=== PATIENT | male | born 1935 | race Caucasian/White ===

== ENCOUNTER 2018-02-18 09:29 | Observation (INO) ==
[2018-02-18 10:17] LABS: Basophils # 0.1 K/mcL (0.0-0.2); Basophils % 0.7 %; Eosinophils # 0.3 K/mcL (0.0-0.6); Eosinophils % 3.7 %; Hematocrit 37.4 % (37.5-50.1); Hemoglobin 12.7 g/dL (12.9-16.9); Immature Granulocytes % 0.6 % (0-4); Lymphocytes # 0.8 K/mcL (0.6-4.6); Lymphocytes % 12.4 %; Mean Corpuscular Hemoglobin 31.1 pg (28.0-33.3); Mean Corpuscular Volume 91.4 fL (83.0-100.0); Mean Platelet Volume 9.8 fL (9.4-12.4); Monocytes # 0.6 K/mcL (0.0-1.3); Monocytes % 8.3 %; Platelet Count 142 K/mcL (140-400); Red Blood Count 4.09 M/mcL (4.19-5.50); Red Cell Distribution Width 12.6 % (11.5-14.5); Segmented Neutrophils % 74.3 %
[2018-02-18 10:25] LABS: Calcium 9.7 mg/dL (8.6-10.3); Carbon Dioxide 29 mEq/L (23-29); Chloride 96 mEq/L (98-107); Glucose 111 mg/dL (70-105); Potassium 4.7 mEq/L (3.5-5.1); Sodium 131 mEq/L (136-145); Troponin I < 0.03 ng/mL (< 0.04); eGFR For Non-African Americans 49 (> 60)
--- NOTE | 2018-02-18 10:38 | Emergency Department Note ---
Addendum entered and electronically signed by Maureen Serna DO 02/18/18 11 :29: I have re-performed and reviewed the history documented by the medical student, and I confirm its accuracy except as noted below Original Note: Disposition Clinical Impression: HA (acute kidney injury), Pre-syncope Disposition: Admitted As Inpatient Condition: Good General Adult HPI - General Chief complaint: ED Dizziness Stated complaint: Lightheaded Time Seen by Provider: 02/18/18 09:36 Source: patient Mode of arrival: ambulatory Limitations: no limitations Nursing Notes Reviewed: Yes Vital Signs Reviewed: Yes - History of Present Illness HPI Narrative: 83-year-old male with significant past medical history of hypertension, hyperlipidemia and coronary artery disease presenting to the emergency department for presyncope episode. According to the patient he got up today and was doing his daily activities when he started to feel very weak like he was going to pass out. He denies any chest pain or shortness of breath during this episode. He states he sat down in his chair and sat there for a few minutes and started to feel better. Patient had an episode similar to this a few weeks ago. He was seen here and evaluated and discharged home. At that time patient did have a syncopal episode and fell. Patient states he has seen his primary care doctor since his last syncopal episode name Wooten lab work but otherwise no other intervention. At this time patient states he feels fine. Pain Scale: 0 - Related Data Home Medications Medication Instructions Recorded Confirmed Aspirin Enteric Coated [Aspirin EC] 81 mg PO DAILY 02/18/15 02/18/15 Atenolol [Tenormin] 100 mg PO DAILY 02/18/15 02/18/15 Calcium Carbonate/Vitamin D3 1 each PO DAILY 02/18/15 02/18/15 [Calcium 600 + D Tablet] Colestipol HCl [Colestid] 5 gm PO DAILY 02/18/15 02/18/15 Furosemide [Lasix] 40 mg PO DAILY PRN 02/18/15 02/18/15 Lisinopril [Zestril] 2.5 mg PO DAILY 02/18/15 02/18/15 Allergies Allergy/AdvReac Type Severity Reaction Status Date / Time Penicillins Allergy Mild Hives Verified 02/18/15 10:43 All systems ED: reviewed and negative except as stated. Constitutional: Denies: fever, chills Eyes: Reports: as per HPI ENT ED: Reports: as per HPI Cardiovascular: Denies: chest pain, palpitations Respiratory: Reports: as per HPI Gastrointestinal: Denies: abdominal pain, nausea, vomiting Genitourinary: Reports: as per HPI Musculoskeletal: Reports: as per HPI Integumentary: Reports: as per HPI Neurological: Reports: weakness. Denies: headache, numbness, paresthesias Psychiatric: Reports: as per HPI Endocrine: Reports: as per HPI Hematological/Lymphatic: Reports: as per HPI Allergic/Immunologic: Reports: as per HPI Past Medical History - Past Medical History Attestation: Yes The following information was validated with the patient. Medical history: Reports: cancer, coronary artery disease, hyperlipidemia, hypertension, myocardial infarction, other Surgical history: Reports: cholecystectomy, coronary bypass (CABG) Psychiatric history: Reports: no psych history - Social History Smoking Status: Never smoker Smokeless Tobacco Status: No Alcohol use: Reports: none Drug use: Reports: none Physical Exam - General Limitations: no limitations General appearance: alert, in no apparent distress - Head Head exam: atraumatic, normocephalic, normal inspection - Eye Eye exam: Present: EOMI, other (Redness to right eye which is baseline for the patient). Absent: scleral icterus, conjunctival injection - ENT ENT exam: normal exam, mucous membranes moist - Neck Neck exam: Present: normal inspection, full ROM. Absent: tenderness, meningismus - Chest Chest inspection: Present: normal inspection, symmetric chest wall rise. Absent : tenderness, rash - Respiratory Respiratory exam: Present: normal lung sounds bilaterally. Absent: respiratory distress, wheezes - Cardiovascular Cardiovascular exam: Present: regular rate, normal rhythm, normal heart sounds - Abdominal Exam Abdominal exam: Present: soft, Non-Tender. Absent: distention, guarding, rebound - Extremities Exam Extremities exam: Present: normal inspection, full ROM - Neurological Exam Neurological exam: Present: alert, oriented X3 - Psychiatric Psychiatric exam: Present: normal affect, normal mood - Skin Skin exam: Present: warm, intact Course Course Narrative: 83-year-old male presenting for presyncopal episode. Patient was seen for similar episode approximately 2-3 weeks ago. At this time patient is alert and oriented 3 in the room with stable vital signs. Physical exam benign. We will obtain basic laboratory analysis including CBC, BMP, troponin, chest x-ray and EKG. Disposition most likely admission due to patient's age and repeat presyncopal episodes. He agrees with this plan. - Reevaluation(s) Reevaluation #1: Patient's laboratory analysis shows mild acute kidney injury. We will provide him with a 500 mL fluid bolus. Patient also has hyponatremia but otherwise baseline labs. Chest x-ray within normal limits. EKG unchanged from previous. Patient asymptomatic throughout his stay. We will plan to admit him for further cardiac evaluation. Patient agrees with this plan. He is alert and oriented times three with stable vital signs. I spoke with the hospitalist collision estimator Dr. Escobedo who agrees to accept the patient at this time. Vital Signs Temperature 97.8 F 02/18/18 09:33 Pulse Rate 70 02/18/18 09:33 Respiratory Rate 16 02/18/18 09:33 Blood Pressure 109/74 02/18/18 09:33 O2 Sat by Pulse Oximetry 99 02/18/18 09:33 Temperature 98.2 F 02/18/18 13:10 Pulse Rate 80 02/18/18 13:10 Respiratory Rate 16 02/18/18 13:10 Blood Pressure 177/87 02/18/18 13:10 O2 Sat by Pulse Oximetry 97 02/18/18 14:06 Oxygen Delivery Oxygen Delivery Room Air Medical Decision Making - Lab Data Result diagrams: 02/18/18 09:54 02/18/18 09:54 Lab Results 02/18/18 02/18/18 Range/Units 09:54 09:54 WBC 6.8 (4.3-11.1) K/mcL RBC 4.09 L (4.19-5.50) M/mcL Hgb 12.7 L (12.9-16.9) g/dL Hct 37.4 L (37.5-50.1) % MCV 91.4 (83.0-100.0) fL MCH 31.1 (28.0-33.3) pg MCHC 34.0 (31.6-35.5) g/dL RDW 12.6 (11.5-14.5) % Plt Count 142 (140-400) K/mcL MPV 9.8 (9.4-12.4) fL Immature Gran % 0.6 (0-4) % Seg Neutrophils % 74.3 % Lymphocytes % 12.4 % Monocytes % 8.3 % Eosinophils % 3.7 % Basophils % 0.7 % Neutrophils # 5.0 (1.6-8.9) K/mcL Lymphocytes # 0.8 (0.6-4.6) K/mcL Monocytes # 0.6 (0.0-1.3) K/mcL Eosinophils # 0.3 (0.0-0.6) K/mcL Basophils # 0.1 (0.0-0.2) K/mcL Sodium 131 L (136-145) mEq/L Potassium 4.7 (3.5-5.1) mEq/L Chloride 96 L (98-107) mEq/L Carbon Dioxide 29 (23-29) mEq/L BUN 19 (8-23) mg/dL Creatinine 1.38 H (0.70-1.30) mg/dL Est GFR ( Amer) 60 (> 60) Est GFR (Non-Af Amer) 49 L (> 60) BUN/Creatinine Ratio 14 (6-26) Glucose 111 H (70-105) mg/dL Calculated Osmolality 275 L (280-300) Calcium 9.7 (8.6-10.3) mg/dL Magnesium 1.7 (1.6-2.6) mg/dL Troponin I < 0.03 (< 0.04) ng/mL - EKG Data EKG #1 EKG attestation: Yes I reviewed and interpreted this EKG. EKG results narrative: Sinus rhythm. 69 beats for minute. CO interval 150, QRS 104, QTC 420. No sign of acute ST segment elevation or ischemia. Compared to previous EKG completed on 01/25/2018 no significant changes noted.
--- NOTE | 2018-02-18 10:50 | Emergency Department Note ---
Disposition Clinical Impression: HA (acute kidney injury), Pre-syncope Disposition: Admitted As Inpatient Condition: Good General Adult HPI - General Chief complaint: ED Dizziness Stated complaint: Lightheaded Time Seen by Provider: 02/18/18 09:36 Source: patient Limitations: no limitations - History of Present Illness Pain Scale: 0 - Related Data Home Medications Medication Instructions Recorded Confirmed Aspirin Enteric Coated [Aspirin EC] 81 mg PO DAILY 02/18/15 02/18/15 Atenolol [Tenormin] 100 mg PO DAILY 02/18/15 02/18/15 Calcium Carbonate/Vitamin D3 1 each PO DAILY 02/18/15 02/18/15 [Calcium 600 + D Tablet] Colestipol HCl [Colestid] 5 gm PO DAILY 02/18/15 02/18/15 Furosemide [Lasix] 40 mg PO DAILY PRN 02/18/15 02/18/15 Lisinopril [Zestril] 2.5 mg PO DAILY 02/18/15 02/18/15 Allergies Allergy/AdvReac Type Severity Reaction Status Date / Time Penicillins Allergy Mild Hives Verified 02/18/15 10:43 Past Medical History - Past Medical History Medical history: Reports: cancer, coronary artery disease, hyperlipidemia, hypertension, myocardial infarction, other Surgical history: Reports: cholecystectomy, coronary bypass (CABG) Psychiatric history: Reports: no psych history - Social History Smoking Status: Never smoker Smokeless Tobacco Status: No Alcohol use: Reports: none Drug use: Reports: none Physical Exam - General Limitations: no limitations General appearance: alert Course Vital Signs Temperature 97.8 F 02/18/18 09:33 Pulse Rate 70 02/18/18 09:33 Respiratory Rate 16 02/18/18 09:33 Blood Pressure 109/74 02/18/18 09:33 O2 Sat by Pulse Oximetry 99 02/18/18 09:33 Temperature 98.2 F 02/18/18 13:10 Pulse Rate 80 02/18/18 13:10 Respiratory Rate 16 02/18/18 13:10 Blood Pressure 177/87 02/18/18 13:10 O2 Sat by Pulse Oximetry 97 02/18/18 14:06 Oxygen Delivery Oxygen Delivery Room Air Medical Decision Making - Lab Data Result diagrams: 02/18/18 09:54 02/18/18 09:54 Lab Results 09/09/18 09/09/18 Range/Units 09:54 09:54 WBC 6.8 (4.3-11.1) K/mcL RBC 4.09 L (4.19-5.50) M/mcL Hgb 12.7 L (12.9-16.9) g/dL Hct 37.4 L (37.5-50.1) % MCV 91.4 (83.0-100.0) fL MCH 31.1 (28.0-33.3) pg MCHC 34.0 (31.6-35.5) g/dL RDW 12.6 (11.5-14.5) % Plt Count 142 (140-400) K/mcL MPV 9.8 (9.4-12.4) fL Immature Gran % 0.6 (0-4) % Seg Neutrophils % 74.3 % Lymphocytes % 12.4 % Monocytes % 8.3 % Eosinophils % 3.7 % Basophils % 0.7 % Neutrophils # 5.0 (1.6-8.9) K/mcL Lymphocytes # 0.8 (0.6-4.6) K/mcL Monocytes # 0.6 (0.0-1.3) K/mcL Eosinophils # 0.3 (0.0-0.6) K/mcL Basophils # 0.1 (0.0-0.2) K/mcL Sodium 131 L (136-145) mEq/L Potassium 4.7 (3.5-5.1) mEq/L Chloride 96 L (98-107) mEq/L Carbon Dioxide 29 (23-29) mEq/L BUN 19 (8-23) mg/dL Creatinine 1.38 H (0.70-1.30) mg/dL Est GFR ( Amer) 60 (> 60) Est GFR (Non-Af Amer) 49 L (> 60) BUN/Creatinine Ratio 14 (6-26) Glucose 111 H (70-105) mg/dL Calculated Osmolality 275 L (280-300) Calcium 9.7 (8.6-10.3) mg/dL Magnesium 1.7 (1.6-2.6) mg/dL Troponin I < 0.03 (< 0.04) ng/mL Attestation Statement - Attestation Attestation: I examined this patient and my medical decision-making was reviewed with the Resident Physician. I agree with the documented findings, disposition and treatment plan as described except to the extent set forth below. Patient to the ED with a chief complaint of dizziness. Patient had an episode today where he felt lightheaded. He leaned over and felt like he was going to pass out. He did not lose consciousness. His dizziness is resolved. Patient had a similar episode a couple of weeks ago and was seen here. He did not fall at that time. No chest pain or trouble breathing. He does state he feels like he is been weaker than normal. Cardiac history including a two-way bypass. He is in no distress awake alert and oriented on examination. Moving all extremities. Plan. Cardiac workup. Likely admission. Labs and x-ray reviewed. Slight elevation in his creatinine from baseline. IV hydration and admission.
--- NOTE | 2018-02-18 10:53 | Emergency Department Note ---
Disposition Clinical Impression: HA (acute kidney injury), Pre-syncope Disposition: Admitted As Inpatient Condition: Good Dizziness HPI - General Chief Complaint: ED Dizziness Stated Complaint: Lightheaded Time Seen by Provider: 02/18/18 09:36 Source: patient Limitations: no limitations Nursing Notes Reviewed: Yes Vital Signs Reviewed: Yes - History of Present Illness HPI Narrative: Rashawn James is an 83-yo male patient with PMHx of HTN and VA with double bypass approx. 15 years ago. He is complaining of lightheadedness that occurred an hour after he got up this morning, at around 7:30. He describes this as sudden in onset, and states that he felt like he was going to pass out but sat in a chair and bent over, which improved his symptoms. He is complaining of no other symptoms, including chest pain, palpitations, shortness of breath, fever, chills, numbness, tingling, vision or hearing changes, focal weakness or sensory loss. He notes that he did have a similar episode a few weeks ago when he did syncopize and fall, and was evaluated with negative workup at the time, including head CT. He states that he has had no recent medication changes, and has been taking his meds as prescribed. He denies any history of CHF, smoking, alcohol, or drug use. He has not acute complaints at this time. Pt Subjective Complaint: lightheadedness Onset (ago): hour(s) (2-3) Timing: sudden onset, now resolved Description: lightheadedness, near-syncope History of similar episodes: Yes History of trauma: Yes Severity: severe Improves with: other (position) Worsens with: position Associated symptoms: Reports: denies other symptoms - Related Data Home Medications Medication Instructions Recorded Confirmed Aspirin Enteric Coated [Aspirin EC] 81 mg PO DAILY 02/18/15 02/18/15 Atenolol [Tenormin] 100 mg PO DAILY 02/18/15 02/18/15 Calcium Carbonate/Vitamin D3 1 each PO DAILY 02/18/15 02/18/15 [Calcium 600 + D Tablet] Colestipol HCl [Colestid] 5 gm PO DAILY 02/18/15 02/18/15 Furosemide [Lasix] 40 mg PO DAILY PRN 02/18/15 02/18/15 Lisinopril [Zestril] 2.5 mg PO DAILY 02/18/15 02/18/15 Allergies Allergy/AdvReac Type Severity Reaction Status Date / Time Penicillins Allergy Mild Hives Verified 02/18/15 10:43 Constitutional: Reports: weakness. Denies: fever, chills Eyes: Denies: vision change ENT ED: Denies: hearing loss, dysphagia Cardiovascular: Denies: chest pain, palpitations, dyspnea on exertion, edema, syncope Respiratory: Denies: cough, dyspnea, wheezes, hemoptysis, stridor Gastrointestinal: Denies: abdominal pain, nausea, vomiting, diarrhea, constipation, hematemesis, melena, hematochezia Genitourinary: Denies: urgency, dysuria, frequency, hematuria Musculoskeletal: Reports: back pain Neurological: Reports: weakness. Denies: headache, numbness, paresthesias, confusion, abnormal gait, vertigo Past Medical History - Past Medical History Medical history: Reports: cancer, coronary artery disease, hyperlipidemia, hypertension, myocardial infarction, other Surgical history: Reports: cholecystectomy, coronary bypass (CABG) Psychiatric history: Reports: no psych history - Social History Smoking Status: Never smoker Smokeless Tobacco Status: No Alcohol use: Reports: none Drug use: Reports: none Physical Exam On exam, patient is alert and oriented x3 and in no acute distress. His heart rate is normal but rhythm irregularly irregular. Lungs are CTAB. Mucous membranes are moist, and patient is neurologically intact. Lower extremities have compression socks with +2/4 pitting edema which according to the patient is his baseline. - General Limitations: no limitations General appearance: alert, in no apparent distress - Head Head exam: atraumatic, normocephalic - Eye Eye exam: Present: normal appearance, PERRL, EOMI - ENT ENT exam: normal exam, normal oropharynx, mucous membranes moist - Neck Neck exam: Present: normal inspection - Chest Chest inspection: Present: normal inspection - Respiratory Respiratory exam: Present: normal lung sounds bilaterally. Absent: respiratory distress, wheezes - Cardiovascular Cardiovascular exam: Present: regular rate, irregular rhythm, normal heart sounds, +S1, +S2. Absent: normal rhythm, bradycardia, tachycardia, systolic murmur, diastolic murmur, rubs, gallop, +S3, +S4 - Abdominal Exam Abdominal exam: Present: soft, Non-Tender, normal bowel sounds. Absent: tenderness, distention, guarding, rebound, rigidity - Extremities Exam Extremities exam: Present: pedal edema - Neurological Exam Neurological exam: Present: alert, oriented X3, CN II-XII intact. Absent: motor sensory deficit - Psychiatric Psychiatric exam: Present: normal mood, flat affect - Skin Skin exam: Present: warm, dry, intact, pallor Course Vital Signs Temperature 97.8 F 02/18/18 09:33 Pulse Rate 70 02/18/18 09:33 Respiratory Rate 16 02/18/18 09:33 Blood Pressure 109/74 02/18/18 09:33 O2 Sat by Pulse Oximetry 99 02/18/18 09:33 Temperature 98.2 F 02/18/18 13:10 Pulse Rate 80 02/18/18 13:10 Respiratory Rate 16 02/18/18 13:10 Blood Pressure 177/87 02/18/18 13:10 O2 Sat by Pulse Oximetry 97 02/18/18 14:06 Oxygen Delivery Oxygen Delivery Room Air Dizziness - Lab Data Result diagrams: 02/18/18 09:54 02/18/18 09:54 Lab Results 02/18/18 02/18/18 Range/Units 09:54 09:54 WBC 6.8 (4.3-11.1) K/mcL RBC 4.09 L (4.19-5.50) M/mcL Hgb 12.7 L (12.9-16.9) g/dL Hct 37.4 L (37.5-50.1) % MCV 91.4 (83.0-100.0) fL MCH 31.1 (28.0-33.3) pg MCHC 34.0 (31.6-35.5) g/dL RDW 12.6 (11.5-14.5) % Plt Count 142 (140-400) K/mcL MPV 9.8 (9.4-12.4) fL Immature Gran % 0.6 (0-4) % Seg Neutrophils % 74.3 % Lymphocytes % 12.4 % Monocytes % 8.3 % Eosinophils % 3.7 % Basophils % 0.7 % Neutrophils # 5.0 (1.6-8.9) K/mcL Lymphocytes # 0.8 (0.6-4.6) K/mcL Monocytes # 0.6 (0.0-1.3) K/mcL Eosinophils # 0.3 (0.0-0.6) K/mcL Basophils # 0.1 (0.0-0.2) K/mcL Sodium 131 L (136-145) mEq/L Potassium 4.7 (3.5-5.1) mEq/L Chloride 96 L (98-107) mEq/L Carbon Dioxide 29 (23-29) mEq/L BUN 19 (8-23) mg/dL Creatinine 1.38 H (0.70-1.30) mg/dL Est GFR ( Amer) 60 (> 60) Est GFR (Non-Af Amer) 49 L (> 60) BUN/Creatinine Ratio 14 (6-26) Glucose 111 H (70-105) mg/dL Calculated Osmolality 275 L (280-300) Calcium 9.7 (8.6-10.3) mg/dL Magnesium 1.7 (1.6-2.6) mg/dL Troponin I < 0.03 (< 0.04) ng/mL
[2018-02-18] MEDS ORDERED: 0.9 % Sodium Chloride 500 ML IVC ONE (11:16)
[2018-02-18 11:54] LABS: BUN/Creatinine Ratio 14 (6-26); Blood Urea Nitrogen 19 mg/dL (8-23); Osmolality,Calculated 275 (280-300)
[2018-02-18] MEDS ORDERED: Naloxone 0.4 MG/ML INJ IVP PRN (12:33)
--- NOTE | 2018-02-18 12:33 | Internal Med History&Physical ---
Date of Encounter: 02/18/18 Time of Encounter: 12:33 Internal Medicine - H&P: HPI Chief complaint: Light-headedness Admitted From: Home Plans for Post Hospital Care: Home History of present illness: Mr. James is a 83 year old male with history of a syncopal event in mid January,. History of MT, CABG, CAD, hypertension, and diabetes. Reported to the ED with lightheadedness that began one hour after waking up this morning. Patient stated he put his head down between his legs which helped him from passing out. During his ER visit in January a head and face CT was found to be negative. Apparently the patient had ocular pressure and was referred to a medical technologist prn. EKG at that time was sinus rhythm. Troponin was negative in the ED. Denies any chest pain. Patient noted to be in bigeminy on telemetry, also heart rate irregular on auscultation. Patient denies history of atrial fibrillation. EKG in the ED showed normal sinus rhythm with a rate 84. We will get a second EKG to confirm the bigeminy. We will also get serum magnesium. Potassium is currently 4.7 and sodium is 131. Patient received a saline bolus in the ED and will continue at 75 mL/hr. CT of the head is pending. Left leg with swelling, as the patient states he has valvular issues in the leg. [place] on. The patient had a echo in 08/2017 which showed a LVEF of 55-60%. The carotid duplex showed some minimal plaque. Past Med Surg Social Fam HX - Past Medical History Medical history: cancer, coronary artery disease, hyperlipidemia, hypertension, myocardial infarction, other Additional medical history: colon cancer Psychiatric history: no psych history - Past Surgical History Surgical History: cholecystectomy, coronary bypass (CABG) Additional surgical history: colon CA, hernia repair, cornea transplant - Social History Smoking Status: Never smoker Smokeless Tobacco Status: No Alcohol use: none Drug use: none - Family History Father Hx Family Cardiac Disorders: Yes (CHF) Mother Hx Family Cardiac Disorders: Yes (MT) Internal Medicine - H&P: Meds Aspirin Enteric Coated [Aspirin EC] 81 mg PO DAILY 02/18/15 [History] Atenolol [Tenormin] 100 mg PO DAILY 02/18/15 [History] Calcium Carbonate/Vitamin D3 [Calcium 600 + D Tablet] 1 each PO DAILY 02/18/15 [ History] Colestipol HCl [Colestid] 5 gm PO DAILY 02/18/15 [History] Furosemide [Lasix] 40 mg PO DAILY PRN 02/18/15 [History] Lisinopril [Zestril] 2.5 mg PO DAILY 02/18/15 [History] 3 Allergy/AdvReac Type Severity Reaction Status Date / Time Penicillins Allergy Mild Hives Verified 02/18/15 10:43 All Systems PM: A 10-system review of systems was performed and is negative for pertinent findings except as documented above in the HPI. - Constitutional Constitutional: no chills, no fever(s), no night sweats - EENT Eyes: no blurry vision, no change in vision, no discharge, no loss of vision, no pain, no photophobia Ears: no ear discharge, no ear pain, no tinnitus Nose, mouth and throat: no dysphagia, no nasal discharge, no neck pain, no sore throat - Cardiovascular Cardiovascular ROS IM: edema ( ), irregular heart rhythm, lightheadedness, no chest pain, no diaphoresis, no dyspnea, no palpitations, no syncope - Respiratory Respiratory: no cough, no dyspnea, no wheezing, no excessive phlegm production - Gastrointestinal Gastrointestinal: no abdominal pain, no diarrhea, no hematemesis, no hematochezia, no melena, no nausea, no vomiting - Musculoskeletal Musculoskeletal ROS IM: no numbness, no tingling - Integumentary Integumentary IM: no rash, no unusual bruising - Neurological Neurological ROS: no confusion, no convulsions, no focal weakness, no numbness, no tingling, no tremor(s) - Hematologic/Lymphatic Hematologic/Lymphatic: no easy bruising - Constitutional Vitals: Temp Pulse Resp BP Pulse Ox 97.8 F 71 20 173/80 100 02/18/18 09:59 02/18/18 09:59 02/18/18 09:59 02/18/18 09:59 02/18/18 09:59 General appearance: Present: A&O X 3 Exam: See 10 pt. exam - Head Head exam: Present: atraumatic, normocephalic - Eye Eye exam: Present: PERRL, conjuntiva pink, sclera anicteric Pupils: Present: PERRL - Neck Neck exam general surgery: Present: supple, trachea midline. Absent: tenderness - Respiratory Respiratory exam: Present: CTAB. Absent: accessory muscle use, rales, rhonchi, wheezes - Cardiovascular Cardiovascular exam: Present: irregular rhythm (Bigeminy), +S1, +S2. Absent: diastolic murmur, gallop, rubs, systolic murmur - GI/Abdominal GI/Abdominal exam: Present: normal bowel sounds, soft, no peritoneal signs. Absent: distended, tenderness - Extremities Exam Extremities exam: Present: pedal edema (Left lower extremity with tenderness with ambulation), tenderness (left lower extremity), warm, radial pulses palpable and symmetrical. Absent: calf tenderness, cyanotic - Neurological Exam Neurological exam: Present: CN II-XII intact, oriented X3, no focal deficits, strengths equal and symetr throughout. Absent: pronater drift, facial droop, speech deficit - Skin Skin exam: Present: dry, intact Internal Med - H&P Results - Labs CBC & Chem 7: 02/18/18 09:54 02/18/18 09:54 - Assessment and plan (1) Diabetes Current Visit: Yes Status: Chronic Assessment and plan: Blood sugar is 111, controlled. Accu check AC/HS with mild sliding scale humalog coverage Monitor daily labs Qualifiers: Diabetes mellitus type: type 2 Diabetes mellitus intermediate designer insulin use: without intermediate designer use Diabetes mellitus complication status: with unspecified complications Qualified Code(s): E11.8 - Type 2 diabetes mellitus with unspecified complications (2) HTN (hypertension) Current Visit: Yes Status: Chronic Assessment and plan: Uncontrolled Goal is less than 140/80 Continue home anti-hypertensive medications-Lisinopril and tenormin. Qualifiers: Hypertension type: essential hypertension Qualified Code(s): I10 - Essential (primary) hypertension (3) CAD (coronary artery disease) Current Visit: Yes Status: Chronic Assessment and plan: History of MT with bypass, 15 years ago. 12 lead EKG Cardiac monitoring Monitor daily labs Troponin is negative on admission, no chest pain reported. Qualifiers: Coronary Disease-Associated Artery/Lesion type: bypass graft [place] vs. transplanted heart: unspecified whether [place] or transplanted heart Associated angina: with unspecified angina Qualified Code(s): I25.709 - Atherosclerosis of coronary artery bypass graft(s), unspecified, with unspecified angina pectoris (4) Myocardial infarction Current Visit: No Status: Chronic Assessment and plan: 15 years ago with CABG. Managed outpatient Cardiac monitoring Monitor labs Qualifiers: Myocardial infarction type: unspecified Involved coronary artery: unspecified coronary artery Qualified Code(s): I21.9 - Acute myocardial infarction, unspecified (5) HA (acute kidney injury) Current Visit: Yes Status: Acute Assessment and plan: Baseline is 1.31 HA likely related to dehydration Received IV bolus in ED 0.9% NS at 75 ml/hr Monitor daily labs Monitor I and O (6) Pre-syncope Current Visit: Yes Status: Acute Assessment and plan: The patient had a similar event in mid January. Ortho statics daily Cardiac monitoring Head CT is pending Monitor labs Up with assist Neuro checks q shift x 3 Echo Carotid duplex (7) Hyponatremia Current Visit: Yes Status: Acute Assessment and plan: Na is 131, likely relate dto dehyration. Received NS IV bolus in ED 0.9% NS at 75 ml/hr X 2 bags Recheck NA in am and as needed Monitor daily labs Monitor I and O - Time Spent With Patient Total time spent is greater than 50% in coordination of care (as documented) at patient's floor/unit and/or counseling patient: less than 15 minutes
[2018-02-18 13:14] LABS: Magnesium 1.7 mg/dL (1.6-2.6)
[2018-02-18] MEDS ORDERED: *HR* Dextrose 50 % in Water (Syg) 50 ML SYRINGE IVP PRN (13:46)
[2018-02-18] MEDS ORDERED: Furosemide 40 MG TABLET PO PRN (13:46)
[2018-02-18] MEDS ORDERED: Dextrose Gel 15 GM/37.5 ML TUBE PO PRN ×2 (13:46)
[2018-02-18] MEDS ORDERED: D5% in Water 1,000 ML IVC PRN (13:46)
[2018-02-18] MEDS: Insulin LISPRO 300 UNITS/3 ML VIAL SQ SCH (16:54)
[2018-02-18] MEDS: 0.9 % Sodium Chloride 1,000 ML IVC SCH (17:57)
[2018-02-19 06:37] LABS: Hematocrit 35.2 % (37.5-50.1); Mean Corpuscular HGB Conc 34.1 g/dL (31.6-35.5); Mean Corpuscular Hemoglobin 31.1 pg (28.0-33.3); Mean Corpuscular Volume 91.2 fL (83.0-100.0); Mean Platelet Volume 9.6 fL (9.4-12.4); Platelet Count 132 K/mcL (140-400); Red Blood Count 3.86 M/mcL (4.19-5.50); Red Cell Distribution Width 12.8 % (11.5-14.5)
[2018-02-19 07:04] LABS: BUN/Creatinine Ratio 13 (6-26); Blood Urea Nitrogen 15 mg/dL (8-23); Carbon Dioxide 30 mEq/L (23-29); Chloride 102 mEq/L (98-107); Glucose 113 mg/dL (70-105); Osmolality,Calculated 284 (280-300); Potassium 4.4 mEq/L (3.5-5.1); Sodium 136 mEq/L (136-145); eGFR For Non-African Americans > 60 (> 60)
[2018-02-19] MEDS: Insulin LISPRO 300 UNITS/3 ML VIAL SQ SCH ×3 (08:31→18:09)
[2018-02-19] MEDS: 0.9 % Sodium Chloride 1,000 ML IVC SCH (08:34)
[2018-02-19] MEDS: Cholecalciferol (D-3) 1,000 UNIT TABLET PO SCH (08:36)
[2018-02-19] MEDS: Aspirin Enteric Coated 81 MG Tablet PO SCH (08:36)
[2018-02-19] MEDS: COLESTIPOL HCL 5 GM PO SCH (08:37)
--- NOTE | 2018-02-19 15:08 | Internal Med Progress Note ---
Hospitalist Progress Note - Encounter Date of Encounter: 02/19/18 Time of Encounter: 15:08 - Subjective Interval History: Mr James is currently in observation for syncopal episode. He remains moderate to high risk. Mr James is doing OK. His family is at bedside. No further episodes since admit. He does have urinary frequency. No CP or SOB. No GI issues. - Exam Vitals: Temp Pulse Resp BP Pulse Ox 97.9 F 75 16 193/78 97 02/19/18 11:02 02/19/18 11:02 02/19/18 11:02 02/19/18 11:02 02/19/18 11:02 Exam: General: Alert and oriented. Comfortable at this time. Skin: Normal color, no rash, no lesions. H: Normocephalic. EENT: EOM, Mucus membranes moist. No lesion. Cardiovascular: Normal S1 & S2, no rubs, murmurs or gallops. No JVD. Pulse regular. Lungs: Normal breath sounds, no wheezes or crackles. Abdomen: Soft, non-tender, no rigidity. Normal bowel sounds. Extremities: No deformity, no joint swelling or clubbing. Edema of LLE - chronic. Neurological: Normal cognition and motor skills. Pulses: Carotid and radial pulses normal +2. Rest of the physical exam is non contributory - Assessment and Plan (1) Hyponatremia Current Visit: Yes Status: Acute Assessment and Plan: Most likely related to hypovolemia. IV fluids given with some improvement. (2) Pre-syncope Current Visit: Yes Status: Acute Assessment and Plan: Work up thus far negative. Will ask neuro for eval. EEG ordered. (3) CAD (coronary artery disease) Current Visit: Yes Status: Chronic Assessment and Plan: Chronic issue. (4) HTN (hypertension) Current Visit: Yes Status: Chronic Assessment and Plan: Elevated this AM. Meds restarted (5) Diabetes Current Visit: Yes Status: Chronic Assessment and Plan: Following blood sugars. (6) HA (acute kidney injury) Current Visit: Yes Status: Resolved - Time Spent with Patient Total time spent is greater than 50% in coordination of care (as documented) at patient's floor/unit and/or counseling patient: Internal Medicine: Result - Labs CBC & Chem 7: 02/19/18 06:10 02/19/18 06:10 Labs: Short CBC 02/19/18 Range/Units 06:10 WBC 6.3 (4.3-11.1) K/mcL Hgb 12.0 L (12.9-16.9) g/dL Hct 35.2 L (37.5-50.1) % Plt Count 132 L (140-400) K/mcL BMP 02/19/18 06:10 Sodium 136 Potassium 4.4 Chloride 102 Carbon Dioxide 30 H BUN 15 Creatinine 1.15 Glucose 113 H Calcium 9.0 Consult Discharge Plan - Plan Referrals: Kolton Stanton Jr, MD [Primary Care Provider] - (3) CAD (coronary artery disease) Qualifiers: Coronary Disease-Associated Artery/Lesion type: bypass graft [place] vs. transplanted heart: [place] heart Associated angina: without angina Qualified Code(s): I25.810 - Atherosclerosis of coronary artery bypass graft(s) without angina pectoris (4) HTN (hypertension) Qualifiers: Hypertension type: essential hypertension Qualified Code(s): I10 - Essential (primary) hypertension (5) Diabetes Qualifiers: Diabetes mellitus type: type 2 Diabetes mellitus fpc insulin use: without director energy use Diabetes mellitus complication status: without complication Qualified Code(s): E11.9 - Type 2 diabetes mellitus without complications
[2018-02-19 15:42] LABS: Bilirubin,Urine Negative (Negative); Blood,Urine Negative (Negative); Clarity,Urine Clear (Clear); Color,Urine Yellow (Yellow); Glucose,Urine (UA) Normal (Normal); Ketones,Urine Negative (Negative); Leukocyte Esterase,Urine Negative (Negative); Nitrite,Urine Negative (Negative); PH,Urine 6.5 pH Units (5.0-8.0); Protein,Urine Negative (Neg-Trace); Urobilinogen,Urine Normal (Normal)
[2018-02-19] MEDS: NETARSUDIL MESYLATE OP SCH (18:22)
[2018-02-20 05:54] LABS: Hematocrit 35.9 % (37.5-50.1); Hemoglobin 11.9 g/dL (12.9-16.9); Mean Corpuscular HGB Conc 33.1 g/dL (31.6-35.5); Mean Corpuscular Hemoglobin 30.6 pg (28.0-33.3); Mean Corpuscular Volume 92.3 fL (83.0-100.0); Mean Platelet Volume 10.6 fL (9.4-12.4); Platelet Count 110 K/mcL (140-400); Red Blood Count 3.89 M/mcL (4.19-5.50)
[2018-02-20 06:12] LABS: BUN/Creatinine Ratio 19 (6-26); Blood Urea Nitrogen 20 mg/dL (8-23); Calcium 8.9 mg/dL (8.6-10.3); Carbon Dioxide 22 mEq/L (23-29); Chloride 102 mEq/L (98-107); Glucose 108 mg/dL (70-105); Magnesium 1.6 mg/dL (1.6-2.6); Osmolality,Calculated 275 (280-300); Potassium 4.6 mEq/L (3.5-5.1); Sodium 131 mEq/L (136-145); eGFR For Non-African Americans > 60 (> 60)
[2018-02-20] MEDS: Insulin LISPRO 300 UNITS/3 ML VIAL SQ SCH ×3 (08:06→16:27)
[2018-02-20] MEDS: Cholecalciferol (D-3) 1,000 UNIT TABLET PO SCH (08:07)
[2018-02-20] MEDS: Aspirin Enteric Coated 81 MG Tablet PO SCH (08:07)
[2018-02-20] MEDS: COLESTIPOL HCL 5 GM PO SCH (08:12)
--- NOTE | 2018-02-20 09:25 | Neurology - Consult Note ---
<Laura Vega P - Last Filed: 02/20/18 14:21> Date of Encounter: 02/20/18 Time of Encounter: 10:50 Assessment and Plan (1) Pre-syncope Current Visit: Yes Status: Acute The patient is 83 years old with PMH of CAD, HTN , Hyperlipidemia , has h/o pass out 1 month back and this time he felt dizzy, lightheadedness and near pass out Carotid doppler: non stenotic small plaque both side EEG ; normal report Echo: LVEF 65%, Mild left ventricular diastolic dysfunction Head CT scan : no acute intra cranial abnormality Plan: to R/O orthostatic hypotension History of Present Illness Chief complaint: Dizziness and lightheaded ness HPI: Mr. James is a 83 year old male past diagnosis of HTN, CAD, hyperlipidemia, admitted to [facility] for dizziness with lightheadedness, passout . He had similar history of pass out almost 1 month back and again he developed similar symptom 2 days back. It was sudden in onset, and states that he has had lightheadedness and felt dizzy and felt like he was going to pass out. This time he denies any fall, chest pain, palpitations, SOB, fever, chills, numbness, tingling, vision or hearing changes, focal weakness or sensory loss. He denies any illicit drug use ,smoking, alcohol, Vitals: 97.8, pul 63 , BP 169/80 Lab: WBC 6.7 Na 137 K 4.6 BUN 20 creatinine 1.08 , magnesium 1.6 Echo: LVEF 60% , mild left ventricular diastolic dysfunction Carotid doppler:Bilateral carotid systems have nonstenotic plaque. CT Head : No acute intracranial abnormality. Chronic small vessel ischemic white disease and diffuse cerebral volume loss. EEG : normal finding Past Med Surg Social Fam HX - Past Medical History Medical history: cancer, coronary artery disease, hyperlipidemia, hypertension, myocardial infarction, other Additional medical history: colon cancer Psychiatric history: no psych history - Past Surgical History Surgical History: cholecystectomy, coronary bypass (CABG) Additional surgical history: colon CA, hernia repair, cornea transplant - Social History Smoking Status: Never smoker Smokeless Tobacco Status: No Alcohol use: none Drug use: none - Family History Father Hx Family Cardiac Disorders: Yes (CHF) Mother Hx Family Cardiac Disorders: Yes ([place]) Medications and Allergies Aspirin Enteric Coated [Aspirin EC] 81 mg PO DAILY 02/18/15 [History] Atenolol [Tenormin] 100 mg PO DAILY 02/18/15 [History] Calcium Carbonate/Vitamin D3 [Calcium 600 + D Tablet] 1 each PO DAILY 02/18/15 [ History] Furosemide [Lasix] 40 mg PO DAILY PRN 02/18/15 [History] Losartan Potassium [Cozaar] 100 mg PO DAILY 02/19/18 [History] Metformin HCl [Metformin HCl ER] 500 mg PO QPM 02/19/18 [History] Netarsudil Mesylate [Rhopressa] 1 drop BOTH EYES HS 02/19/18 [History] 3 Allergy/AdvReac Type Severity Reaction Status Date / Time Penicillins Allergy Mild Hives Verified 02/18/15 10:43 All Systems: The remainder of the systems were reviewed and are negative Physical Examination - Vital Signs Vital Signs: Initial Vital Signs Temp Pulse Resp BP Pulse Ox 97.8 F 70 16 109/74 99 02/18/18 09:33 02/18/18 09:33 02/18/18 09:33 02/18/18 09:33 02/18/18 09:33 - Constitutional General appearance: comfortable - Neurologic Sensorimotor examination: intact Detailed motor examination: full strength in all major muscle groups Motor examination - right side: 5/5: deltoids, biceps, triceps, wrist flexion, wrist extension, bilingual sales consultant, hip flexors, tibialis Anterior, quadriceps, toe extension (EHL), plantarflexion Motor examination - left side: 5/5: deltoids, biceps, triceps, wrist flexion, wrist extension, hip flexors, bilingual sales consultant, quadriceps, tibialis Anterior, toe extension (EHL), plantarflexion Detailed sensory examination: intact Reflex and gait examination: intact Reflexes: Biceps: 2+, Triceps: 2+, Brachioradialis: 2+, Patella: 2+, Achilles: 2 + Mental Status Examination: awake, alert, oriented to person, oriented to place, oriented to time, follows commands appropriately, answers questions appropriately, no agnosia, no aphasia Cranial nerve examination: PERRL, EOMI, visual [place] intact, sensory to face intact, no facial asymmetry is present Results - Laboratory Findings CBC and BMP: 02/20/18 05:36 02/20/18 05:36 Abnormal lab findings: Abnormal lab results RBC 3.89 M/mcL (4.19-5.50) L 02/20/18 05:36 Hgb 11.9 g/dL (12.9-16.9) L 02/20/18 05:36 Hct 35.9 % (37.5-50.1) L 02/20/18 05:36 Plt Count 110 K/mcL (140-400) L 02/20/18 05:36 Sodium 131 mEq/L (136-145) L 02/20/18 05:36 Carbon Dioxide 22 mEq/L (23-29) L 02/20/18 05:36 Glucose 108 mg/dL (70-105) H 02/20/18 05:36 POC Glucose 123 mg/dL (70-99) H 02/19/18 19:56 Calculated Osmolality 275 (280-300) L 02/20/18 05:36 B-Natriuretic Peptide 268 pg/mL (Less than 100) H 02/19/18 06:10 Consult Discharge Plan - Plan Referrals: Kolton Stanton Jr, MD [Primary Care Provider] - <Jaswant Lindquist I - Last Filed: 02/20/18 14:57> Date of Encounter: 02/20/18 Assessment and Plan (1) Pre-syncope Current Visit: Yes Status: Acute Pt was seen and examined, my medical decision was reviewed with the Resident Physician, I agree with the documented findings, disposition and treatment plas as described except to the extent set forth below This patient who has is episodic, lightheadedness dizziness and also feeling of passing out and did have a spell earlier that he passed out. Though seizures is a possibility but the description and history does not sound like a typical seizures suspect it is more orthostatic than anything else at the same time he do need to exclude any cardiac causes for which she is already getting workup. Suggest checking orthostatic blood pressure or can do tilt table studies as an outpatient. In the meantime continue him and IV fluids continue to monitor him for any arrhythmias also check for other metabolic dysfunction that may be causing or contributing to his symptoms Will review his EEG do not think that he need to be on any anticonvulsive medication at this time Jaswant Lindquist MD History of Present Illness HPI: Mr. James is a 83 year old male All Systems: The remainder of the systems were reviewed and are negative Physical Examination - Vital Signs Vital Signs: Initial Vital Signs Temp Pulse Resp BP Pulse Ox 97.8 F 70 16 109/74 99 02/18/18 09:33 02/18/18 09:33 02/18/18 09:33 02/18/18 09:33 02/18/18 09:33 Results - Laboratory Findings CBC and BMP: 02/20/18 05:36 02/20/18 05:36 Abnormal lab findings: Abnormal lab results RBC 3.89 M/mcL (4.19-5.50) L 02/20/18 05:36 Hgb 11.9 g/dL (12.9-16.9) L 02/20/18 05:36 Hct 35.9 % (37.5-50.1) L 02/20/18 05:36 Plt Count 110 K/mcL (140-400) L 02/20/18 05:36 Sodium 131 mEq/L (136-145) L 02/20/18 05:36 Carbon Dioxide 22 mEq/L (23-29) L 02/20/18 05:36 Glucose 108 mg/dL (70-105) H 02/20/18 05:36 POC Glucose 123 mg/dL (70-99) H 02/19/18 19:56 Calculated Osmolality 275 (280-300) L 02/20/18 05:36 B-Natriuretic Peptide 268 pg/mL (Less than 100) H 02/19/18 06:10
--- NOTE | 2018-02-20 13:39 | EEG/EMG/Oth Biometrics Report ---
EEG Procedure Report EEG Procedure: Routine EEG Procedure Note: This is a routine 21 channel digital EEG performed utilizing 10- 20 international electrode placement system. FINDINGS: Patient has a predominant waking background frequency that is average voltage 8 to 10 Hertz alpha activity in the posterior region, normal amplitude symmetrical over the both hemispheres reactive to eyes opening and closing record continued to show alpha activity intermixed with some theta off and on, no abnormal activity recorded, predominantly no evidence of any spike wave discharges or any lateralizing abnormalities, Photic stimulation did not produce any convulsive response. Intermittent EMG artifacts were noted. Stage II sleep was not achieved. Impression: Normal awake drowsy electroencephalogram. No epileptiform discharges or any other paroxysmal activities noted. ( Please note that normal EEG does not exclude the diagnosis of seizures or epilepsy, clinical correlation is suggested)
[2018-02-20 16:22] LABS: Folate 16.1 ng/mL (3.0-16.0)
[2018-02-20] MEDS: NETARSUDIL MESYLATE OP SCH (19:21)
--- NOTE | 2018-02-20 22:17 | Internal Med Progress Note ---
Hospitalist Progress Note - Encounter Date of Encounter: 02/20/18 Time of Encounter: 19:00 - Subjective Interval History: SUBJECTIVE: The patient feels good. He ambulates on his own not having any dizziness or lightheadedness. He has not experienced any chest pain recently. Denies dyspnea, coughing and wheezing. Denies abdominal pain, nausea and vomiting. He makes good amounts of urine. OBJECTIVE: Skin: Free of rash and discoloration. ENMT: Oral/pharyngeal mucosa is normal in appearance. Eyes: Sclera is white. There is no discharge from eyes. Respiratory: Normal breath sounds; no crackles or wheezes. CV: Heart is regular; no gallop or murmur. GI: Abdomen is soft and not tender. There is no palpable mass or visceromegaly. Neuro: There is no focal deficits. ASSESSMENT AND PLAN: Presyncope. He had a full syncopal episode a month ago. Telemetry does not show any abnormalities. He has normal CT of head, echocardiogram and carotid duplex. See neurologic consult. They ordered EEG. The patient had high systolic blood pressure of 190, when experiencing presyncope. Coronary artery disease. Stable. Will keep him on atenolol, losartan and aspirin. Hypertension. We may need to add Norvasc to his atenolol and losartan, if his blood pressure remains elevated. Mild hyponatremia. This is likely due to Lasix he was taking at home. Acute kidney injury. Resolved. We will check his orthostatic blood pressure/ heart rate changes in supine and standing positions. He might have had orthostatic presyncope at home. DISPOSITION: Awaiting EEG report. Tentative discharge home is tomorrow. - Exam Vitals: Temp Pulse Resp BP Pulse Ox 98.2 F 80 16 202/84 98 02/20/18 20:26 02/20/18 20:26 02/20/18 20:26 02/20/18 20:26 02/20/18 20:26 Exam: xxx - Assessment and Plan (1) Pre-syncope Current Visit: Yes Status: Acute (2) CAD (coronary artery disease) Current Visit: Yes Status: Chronic (3) Diabetes Current Visit: Yes Status: Chronic (4) HTN (hypertension) Current Visit: Yes Status: Chronic (5) Hyponatremia Current Visit: Yes Status: Acute (6) HA (acute kidney injury) Current Visit: Yes Status: Resolved - Time Spent with Patient Total time spent is greater than 50% in coordination of care (as documented) at patient's floor/unit and/or counseling patient: 25 - 35 minutes Internal Medicine: Result - Labs CBC & Chem 7: 02/20/18 05:36 02/20/18 05:36 Labs: Short CBC 02/20/18 Range/Units 05:36 WBC 6.7 (4.3-11.1) K/mcL Hgb 11.9 L (12.9-16.9) g/dL Hct 35.9 L (37.5-50.1) % Plt Count 110 L (140-400) K/mcL BMP 02/20/18 05:36 Sodium 131 L Potassium 4.6 Chloride 102 Carbon Dioxide 22 L BUN 20 Creatinine 1.08 Glucose 108 H Calcium 8.9 Consult Discharge Plan - Plan Referrals: Kolton Stanton Jr, MD [Primary Care Provider] - (2) CAD (coronary artery disease) Qualifiers: Coronary Disease-Associated Artery/Lesion type: bypass graft [place] vs. transplanted heart: [place] heart Associated angina: without angina Qualified Code(s): I25.810 - Atherosclerosis of coronary artery bypass graft(s) without angina pectoris (3) Diabetes Qualifiers: Diabetes mellitus type: type 2 Diabetes mellitus [place] insulin use: without senior care use Diabetes mellitus complication status: without complication Qualified Code(s): E11.9 - Type 2 diabetes mellitus without complications (4) HTN (hypertension) Qualifiers: Hypertension type: essential hypertension Qualified Code(s): I10 - Essential (primary) hypertension
[2018-02-21] MEDS: Insulin LISPRO 300 UNITS/3 ML VIAL SQ SCH (09:06)
[2018-02-21] MEDS: COLESTIPOL HCL 5 GM PO SCH (09:12)
[2018-02-21] MEDS: Aspirin Enteric Coated 81 MG Tablet PO SCH (09:12)
[2018-02-21] MEDS: Cholecalciferol (D-3) 1,000 UNIT TABLET PO SCH (09:12)
[2018-02-21] MEDS ORDERED: amLODIPine 5 MG TABLET PO SCH (10:15)
[2018-02-21 11:00] VITALS: BP 153/69
--- NOTE | 2018-02-21 11:33 | Discharge Summary ---
- NOTES TO OUTPATIENT PROVIDER Notes to Outpatient Provider: The patient was advised to check his blood pressure daily plus if needed (when symptomatic). Date of Encounter: 02/21/18 Time of Encounter: 11:31 - Discharge Diagnosis (1) Pre-syncope Priority: Primary Status: Acute (2) CAD (coronary artery disease) Priority: Secondary Status: Chronic Qualifiers: Coronary Disease-Associated Artery/Lesion type: bypass graft [place] vs. transplanted heart: [place] heart Associated angina: without angina Qualified Code(s): I25.810 - Atherosclerosis of coronary artery bypass graft(s) without angina pectoris (3) Diabetes Priority: Secondary Status: Chronic Qualifiers: Diabetes mellitus type: type 2 Diabetes mellitus ferry terminal agent insulin use: without ferry terminal agent use Diabetes mellitus complication status: without complication Qualified Code(s): E11.9 - Type 2 diabetes mellitus without complications (4) HTN (hypertension) Priority: Primary Status: Chronic Qualifiers: Hypertension type: essential hypertension Qualified Code(s): I10 - Essential (primary) hypertension (5) Hyponatremia Priority: Primary Status: Acute (6) HA (acute kidney injury) Priority: Primary Status: Resolved Hospital course: Mr. James is a 83 year old male. He came to our emergency room, after he had experienced an episode of dizziness/lightheadedness; lasting for about 1 hour. He had increased blood pressure with systolic of around 190 at home. One can see slightly increased creatinine at admission. The patient got a bolus of IV normal saline. His creatinine at discharge was 1.08. This patient had an episode of syncope with some injury to his head about a month before this admission. We did syncope workup including CT of head, echocardiogram, carotid duplex and EEG. We presented him to neurology. All those are tests came negative. Telemetry did not reveal any abnormalities. We did orthostatics before his discharge. There were normal. CONDITION AT DISCHARGE: The patient feels good. He ambulates on his own not having any particular symptoms. Skin: Free of rash and discoloration. Respiratory: Normal breath sounds with no crackles and wheezes bilaterally. CV: Heart is regular with no gallop or murmur. GI: Abdomen is flat and soft with no palpable mass or visceromegaly. Neuro exam: There is no focal deficits. Normal speech, swallowing and gait. SEE DISCHARGE ORDERS/MEDICATIONS.. I advised him to check his blood pressure daily plus if needed (when having symptoms). Discharge discussed with: patient, family, nurse - Time Spent with Patient Total time spent providing and/or coordinating discharge services: Greater than 30 minutes (40 minutes) - Discharge Medications Prescriptions: amLODIPine [Norvasc] 5 mg PO DAILY 30 Days #30 tablet Home Medications: Aspirin Enteric Coated [Aspirin EC] 81 mg PO DAILY 02/18/15 [History] Atenolol [Tenormin] 100 mg PO DAILY 02/18/15 [History] Calcium Carbonate/Vitamin D3 [Calcium 600 + D Tablet] 1 each PO DAILY 02/18/15 [ History] Furosemide [Lasix] 40 mg PO DAILY PRN 02/18/15 [History] Losartan Potassium [Cozaar] 100 mg PO DAILY 02/19/18 [History] Metformin HCl [Metformin HCl ER] 500 mg PO QPM 02/19/18 [History] Netarsudil Mesylate [Rhopressa] 1 drop BOTH EYES HS 02/19/18 [History] Patient Taking Own Medication 1 each PO DAILY each 02/21/18 [Rx] amLODIPine [Norvasc] 5 mg PO DAILY 30 Days #30 tablet 02/21/18 [Rx] Allergies/Adverse Reactions: 3 Allergy/AdvReac Type Severity Reaction Status Date / Time Penicillins Allergy Mild Hives Verified 02/18/15 10:43 Date of admission: 02/18/18 11:30 Primary care physician: Kolton Stanton Jr, MD Consults: 02/19/18 17:17 Consult to Neurology [CONS] Routine Consulting Provider: Neurology [facility] Reason for Consult: Recurrent syncopal episode Call Completed: Yes 02/20/18 11:35 Consult to Interpret Exam [CONS] Routine Consulting Provider: Jaswant Lindquist I Consult to Interpret Exam: Interpret EEG Discharging clinician: Rafa Velazquez Anticipated date of discharge: 02/21/18 - Constitutional Vitals: Temp Pulse Resp BP Pulse Ox 97.7 F 78 16 153/69 98 02/21/18 10:58 02/21/18 10:58 02/21/18 10:58 02/21/18 10:58 02/21/18 10:58 General appearance: Present: A&O X 3, no acute distress, answers questions appropriately Exam: xxx - Patient Status Disposition: Home, Self-Care Condition: Good Functional capacity at discharge: independent ambulation Overall status at discharge: patient is back to baseline - Discharge Instructions Instructions: Amlodipine (By mouth) Follow Up With: Kolton Stanton Jr, MD [Primary Care Provider] - 03/02/18 11:00 am - Diet and Activity Activity: resume usual activities as tolerated - VTE Reasons for not Prescribing Prophylaxis: Treatment not Indicated - Low risk for VTE Deep Vein Thrombosis/Pulmonary Embolism Present on Admission: No
--- NOTE | 2018-02-22 15:30 | Electrocardiograph Report ---
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
--- NOTE | 2018-02-22 17:39 | Electrocardiograph Report ---
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
== END 2018-02-21 12:58 | disposition home or self-care (01) ==
LOC: EMEROOARM 09:29 → 3BNU 09:29 → SUATTDRO 11:30 → 3BNU 12:45
PROVIDERS: ADMIT Internal Medicine; ATTEND Internal Medicine

== ENCOUNTER 2018-03-31 14:15 | Observation (INO) ==
--- NOTE | 2018-03-31 14:19 | Emergency Department Note ---
Disposition Clinical Impression: Syncope and collapse, Renal insufficiency, Lung nodules Altered mental status Qualifiers: Altered mental status type: unspecified Qualified Code(s): R41.82 - Altered mental status, unspecified Disposition: Admitted As Inpatient Condition: Good Time of Disposition: 18:11 General Adult HPI - General Stated complaint: Altered Mental Status Time Seen by Provider: 03/31/18 14:17 Nursing Notes Reviewed: Yes Vital Signs Reviewed: Yes - History of Present Illness HPI Narrative: 83-year-old male past history of extensive coronary artery disease, CABG, hypertension, type 2 diabetes mellitus, presents to the emergency department with concern for having syncopal episodes. Patient's had a few of these in last several months. Reports passing out. Once he becomes responsive, his lips were blue, he is pale, eyes are fixed, acts confused. Reports family members having abscesses in this before their deaths. She denies any symptoms at this time. Denies any chest pain, pressure, tightness, shortness of breath. - Related Data Home Medications Medication Instructions Recorded Confirmed Aspirin [Lo-Dose Aspirin EC] 81 mg PO DAILY 03/31/18 03/31/18 Atenolol 100 mg PO DAILY 03/31/18 03/31/18 Calcium Carbonate/Vitamin D3 1 tab PO DAILY 03/31/18 03/31/18 [Calcium 600 + Vit D Tablet] Furosemide [Lasix] 40 mg PO DAILY PRN 03/31/18 03/31/18 Latanoprost [Xalatan] 1 drop BOTH EYES HS 03/31/18 03/31/18 Losartan Potassium [Cozaar] 100 mg PO DAILY 03/31/18 03/31/18 Metformin HCl [Metformin HCl ER] 500 mg PO QPM 03/31/18 03/31/18 Netarsudil Mesylate [Rhopressa] 1 drop BOTH EYES HS 03/31/18 03/31/18 Tobramycin/Lotepred Etab [Zylet 1 drop RIGHT EYE BID 03/31/18 03/31/18 Eye Drops] amLODIPine [Norvasc] 5 mg PO DAILY 03/31/18 03/31/18 Allergies Allergy/AdvReac Type Severity Reaction Status Date / Time Penicillins Allergy Mild Hives Verified 03/31/18 16:56 All systems ED: reviewed and negative except as stated. Review of Systems: As Per HPI Constitutional: Denies: fever Cardiovascular: Reports: syncope. Denies: chest pain Respiratory: Denies: dyspnea Gastrointestinal: Denies: abdominal pain, nausea, vomiting Genitourinary: Denies: dysuria Musculoskeletal: Denies: back pain Integumentary: Denies: rash Neurological: Denies: headache Past Medical History - Past Medical History Medical history: Reports: cancer, coronary artery disease, hyperlipidemia, hypertension, myocardial infarction, other Surgical history: Reports: cholecystectomy, coronary bypass (CABG) Psychiatric history: Reports: no psych history - Social History Smoking Status: Never smoker Smokeless Tobacco Status: No Alcohol use: Reports: none Drug use: Reports: none Physical Exam - General Limitations: no limitations General appearance: alert - Head Head exam: normocephalic - Eye Eye exam: Present: EOMI - ENT ENT exam: mucous membranes moist - Neck Neck exam: Present: trachea midline - Chest Chest inspection: Present: symmetric chest wall rise - Respiratory Respiratory exam: Present: normal lung sounds bilaterally. Absent: respiratory distress, accessory muscle use - Cardiovascular Cardiovascular exam: Present: regular rate, normal rhythm, normal heart sounds - Abdominal Exam Abdominal exam: Present: soft, Non-Tender. Absent: distention, guarding, rebound, rigidity - Extremities Exam Extremities exam: Present: normal capillary refill - Back Exam Back exam: Present: full ROM - Neurological Exam Neurological exam: Present: alert, oriented X3 - Psychiatric Psychiatric exam: Present: normal affect, normal mood - Skin Skin exam: Present: warm, dry, intact Course Vital Signs Temperature 97.7 F 03/31/18 14:20 Pulse Rate 70 03/31/18 14:20 Respiratory Rate 20 03/31/18 14:20 Blood Pressure 127/62 03/31/18 14:20 O2 Sat by Pulse Oximetry 100 03/31/18 14:20 Temperature 97.7 F 03/31/18 14:20 Pulse Rate 84 03/31/18 16:35 Respiratory Rate 21 03/31/18 16:35 Blood Pressure 127/63 03/31/18 16:35 O2 Sat by Pulse Oximetry 100 03/31/18 16:35 Oxygen Delivery Oxygen Delivery Room Air Medical Decision Making - [facility] Narrative Medical decision making narrative: 83-year-old male presents emergency department with concern for syncopal episodes. Patient's 83 years old, has extensive history of coronary artery disease, is reportedly having new seizures in the last few months. Patient hemodynamically stable at time of arrival to the emergency department. Was reportedly blue. Nursing staff reported that he was pale upon arrival as well, but he was alert and oriented 3. GCS is 15. Not in acute distress. No Ischemic changes on EKG. No evidence of deadly causes syncope. Troponin is within normal limits. Chest x-ray did not reveal any acute process per radiology but did reveal calcified aorta. CT scan of the head did not reveal any intracranial abnormality, and cervical spine CT did reveal any subluxation. CTA of the chest did not reveal any evidence of pulmonary embolism, but did reveal some lateral small pleural effusions as well as calcified aorta. Patient does not appear wet. In fact, creatinine is mildly elevated, he appears mildly dehydrated. I spoke with neurology on the phone, Dr. Lindquist, who recommended patient to obtain MRA of the head and neck. This information was relayed over to the hospitalist who agreed to accept the patient for admission. Chest X-Ray 03/31/18 14:18 IMPRESSION: No acute pulmonary disease. Calcific atherosclerotic disease aorta. D/ / Robin Moncada / Robin Moncada Interpreting Provider: Robin Moncada Head CT 03/31/18 14:18 IMPRESSION: 1. No acute intracranial abnormality. 2. No acute fracture or subluxation of the cervical spine. D/ / 03/31/2018 16:26:12 Marcos Terry MD / jose angel Interpreting Provider: Marcos Terry MD Cervical Spine CT 03/31/18 14:19 IMPRESSION: 1. No acute intracranial abnormality. 2. No acute fracture or subluxation of the cervical spine. D/ / 03/31/2018 16:26:12 Marcos Terry MD / jose angel Interpreting Provider: Marcos Terry MD Chest CTA 03/31/18 14:19 IMPRESSION: 1. No pulmonary embolism. 2. Calcific atherosclerosis aorta and coronary arteries status post open heart surgery. 3. Small volume bilateral pleural effusion with minimal bibasilar relaxation atelectasis. 4. Rounded soft tissue densities posterior both lower lungs have the appearance of rounded atelectasis but are nonspecific. Additional evaluation with PET-CT follow-up imaging should be considered versus short-term interval CT chest follow-up to ensure stability. ____ Fleischner Society guidelines for follow-up and management of incidentally detected pulmonary nodules: Single Solid Nodule: Nodule size less than 6 mm In a low-risk patient, no routine follow-up. In a high-risk patient, optional CT at 12 months. Nodule size equals 6-8 mm In a low-risk patient, CT at 6-12 months, then consider CT at 18-24 months. In a high-risk patient, CT at 6-12 months, then CT at 18-24 months. Nodule size greater than 8 mm In a low-risk patient, consider CT at 3 months, PET/CT, or tissue sampling. In a high-risk patient, consider CT at 3 months, PET/CT, or tissue sampling. Multiple Solid Nodules: Nodule size less than 6 mm In a low-risk patient, no routine follow-up. In a high-risk patient, optional CT at 12 months. Nodule size equals 6-8 mm In a low-risk patient, CT at 3-6 months, then consider CT at 18-24 months. In a high-risk patient, CT at 3-6 months, then CT at 18-24 months. Nodule size greater than 8 mm In a low-risk patient, CT at 3-6 months, then consider CT at 18-24 months. In a high-risk patient, CT at 3-6 months, then CT at 18-24 months. - Low risk patients include individuals with minimal or absent history of smoking and other known risk factors. - High risk patients include individuals with a history or smoking or known risk factors. Radiology 2017 http://pubs.rsna.org/doi/full/10.1148/radiol.[email or web address] D/ / Robin Moncada / Robin Moncada Interpreting Provider: Robin Moncada - Lab Data Result diagrams: 03/31/18 14:26 03/31/18 14:26 Lab Results 03/31/18 03/31/18 03/31/18 Range/Units 14:26 14:26 14:26 WBC 6.9 (4.3-11.1) K/mcL RBC 3.65 L (4.19-5.50) M/mcL Hgb 11.1 L (12.9-16.9) g/dL Hct 32.9 L (37.5-50.1) % MCV 90.1 (83.0-100.0) fL MCH 30.4 (28.0-33.3) pg MCHC 33.7 (31.6-35.5) g/dL RDW 12.6 (11.5-14.5) % Plt Count 163 (140-400) K/mcL MPV 9.1 L (9.4-12.4) fL Immature Gran % 1.2 (0-4) % Seg Neutrophils % 63.9 % Lymphocytes % 19.0 % Monocytes % 10.3 % Eosinophils % 4.7 % Basophils % 0.9 % Neutrophils # 4.4 (1.6-8.9) K/mcL Lymphocytes # 1.3 (0.6-4.6) K/mcL Monocytes # 0.7 (0.0-1.3) K/mcL Eosinophils # 0.3 (0.0-0.6) K/mcL Basophils # 0.1 (0.0-0.2) K/mcL PT 11.5 (9.4-12.1) Seconds INR 1.0 APTT 29.5 (26.0-36.0) Seconds Sodium 132 L (136-145) mEq/L Potassium 4.2 (3.5-5.1) mEq/L Chloride 103 (98-107) mEq/L Carbon Dioxide 21 L (23-29) mEq/L BUN 23 (8-23) mg/dL Creatinine 1.67 H (0.70-1.30) mg/dL Est GFR ( Amer) 48 L (> 60) Est GFR (Non-Af Amer) 39 L (> 60) BUN/Creatinine Ratio 14 (6-26) Glucose 136 H (70-105) mg/dL Calculated Osmolality 280 (280-300) Calcium 8.7 (8.6-10.3) mg/dL Total Bilirubin 0.6 (0.3-1.0) mg/dL Direct Bilirubin 0.1 (0.0-0.2) mg/dL Indirect Bilirubin 0.5 (0.0-1.2) mg/dL AST 11 L (13-39) Units/L ALT 8 (7-52) Units/L Alkaline Phosphatase 85 (34-104) Units/L Troponin I < 0.03 (< 0.04) ng/mL Serum Total Protein 6.1 L (6.4-8.9) g/dL Albumin 3.7 (3.5-5.7) g/dL Globulin 2.4 (2.4-3.5) g/dL Albumin/Globulin Ratio 1.5 (1.1-2.2) TSH 5.045 (0.340-5.600) mcIU/mL Urine Color (Yellow) Urine Clarity (Clear) Urine pH (5.0-8.0) pH Units Ur Specific [place] (1.010-1.025) Urine Protein (Neg-Trace) mg/dL Urine Glucose (UA) (Normal) mg/dL Urine Ketones (Negative) mg/dL Urine Blood (Negative) Urine Nitrite (Negative) Urine Bilirubin (Negative) Urine Urobilinogen (Normal) mg/dL Ur Leukocyte Esterase (Negative) Urine Microscopic RBC (0-3) per hpf Urine Microscopic WBC (0-3) per hpf Ur Squamous Epith Cells (None-Few) per lpf Urine Bacteria (None-Few) per hpf Hyaline Casts (None-Few) per lpf Ur Culture Indicated? (NO) Urine Opiates Screen (Whiowf=795) ng/mL Ur Barbiturates Screen (Ovsabr=101) ng/mL Ur Phencyclidine Scrn (Cutoff=25) ng/mL Ur Amphetamines Screen (Lpygus=2862) ng/mL U Benzodiazepines Scrn (Lpyrsq=622) ng/mL Urine Cocaine Screen (Cutoff= 300) ng/mL U Marijuana (THC) Screen (Cutoff = 50) ng/mL Ur Drug Screen Interp Ethyl Alcohol < 10 (Less than 10) mg/dL 03/31/18 03/31/18 Range/Units 14:46 14:46 WBC (4.3-11.1) K/mcL RBC (4.19-5.50) M/mcL Hgb (12.9-16.9) g/dL Hct (37.5-50.1) % MCV (83.0-100.0) fL MCH (28.0-33.3) pg MCHC (31.6-35.5) g/dL RDW (11.5-14.5) % Plt Count (140-400) K/mcL MPV (9.4-12.4) fL Immature Gran % (0-4) % Seg Neutrophils % % Lymphocytes % % Monocytes % % Eosinophils % % Basophils % % Neutrophils # (1.6-8.9) K/mcL Lymphocytes # (0.6-4.6) K/mcL Monocytes # (0.0-1.3) K/mcL Eosinophils # (0.0-0.6) K/mcL Basophils # (0.0-0.2) K/mcL PT (9.4-12.1) Seconds INR APTT (26.0-36.0) Seconds Sodium (136-145) mEq/L Potassium (3.5-5.1) mEq/L Chloride (98-107) mEq/L Carbon Dioxide (23-29) mEq/L BUN (8-23) mg/dL Creatinine (0.70-1.30) mg/dL Est GFR ( Amer) (> 60) Est GFR (Non-Af Amer) (> 60) BUN/Creatinine Ratio (6-26) Glucose (70-105) mg/dL Calculated Osmolality (280-300) Calcium (8.6-10.3) mg/dL Total Bilirubin (0.3-1.0) mg/dL Direct Bilirubin (0.0-0.2) mg/dL Indirect Bilirubin (0.0-1.2) mg/dL AST (13-39) Units/L ALT (7-52) Units/L Alkaline Phosphatase (34-104) Units/L Troponin I (< 0.04) ng/mL Serum Total Protein (6.4-8.9) g/dL Albumin (3.5-5.7) g/dL Globulin (2.4-3.5) g/dL Albumin/Globulin Ratio (1.1-2.2) TSH (0.340-5.600) mcIU/mL Urine Color Yellow (Yellow) Urine Clarity Clear (Clear) Urine pH 6.0 (5.0-8.0) pH Units Ur Specific [place] 1.022 (1.010-1.025) Urine Protein Trace (Neg-Trace) mg/dL Urine Glucose (UA) Normal (Normal) mg/dL Urine Ketones Trace H (Negative) mg/dL Urine Blood Negative (Negative) Urine Nitrite Negative (Negative) Urine Bilirubin Negative (Negative) Urine Urobilinogen Normal (Normal) mg/dL Ur Leukocyte Esterase Negative (Negative) Urine Microscopic RBC 5-15 H (0-3) per hpf Urine Microscopic WBC 5-15 H (0-3) per hpf Ur Squamous Epith Cells Many H (None-Few) per lpf Urine Bacteria None Seen (None-Few) per hpf Hyaline Casts Many H (None-Few) per lpf Ur Culture Indicated? NO (NO) Urine Opiates Screen Negative (Dvdozt=324) ng/mL Ur Barbiturates Screen Negative (Rkeaac=705) ng/mL Ur Phencyclidine Scrn Negative (Cutoff=25) ng/mL Ur Amphetamines Screen Negative (Gamjcm=3288) ng/mL U Benzodiazepines Scrn Negative (Lurdnr=128) ng/mL Urine Cocaine Screen Negative (Cutoff= 300) ng/mL U Marijuana (THC) Screen Negative (Cutoff = 50) ng/mL Ur Drug Screen Interp See Below Ethyl Alcohol (Less than 10) mg/dL - EKG Data EKG #1 EKG attestation: Yes I reviewed and interpreted this EKG. EKG results narrative: 14:27 Heart rate 69 bpm, LA interval 199 ms, QRS duration 18 ms, QT 400 ms, left axis deviation. Sinus rhythm ventricular rate of 69 beats for minute. Right bundle-branch block. No evidence of any ischemic ST changes and EKG.
[2018-03-31 14:38] LABS: Basophils # 0.1 K/mcL (0.0-0.2); Basophils % 0.9 %; Eosinophils # 0.3 K/mcL (0.0-0.6); Eosinophils % 4.7 %; Hematocrit 32.9 % (37.5-50.1); Hemoglobin 11.1 g/dL (12.9-16.9); Immature Granulocytes % 1.2 % (0-4); Lymphocytes # 1.3 K/mcL (0.6-4.6); Mean Corpuscular HGB Conc 33.7 g/dL (31.6-35.5); Mean Corpuscular Hemoglobin 30.4 pg (28.0-33.3); Mean Corpuscular Volume 90.1 fL (83.0-100.0); Mean Platelet Volume 9.1 fL (9.4-12.4); Monocytes # 0.7 K/mcL (0.0-1.3); Monocytes % 10.3 %; Neutrophils # 4.4 K/mcL (1.6-8.9); Platelet Count 163 K/mcL (140-400); Red Blood Count 3.65 M/mcL (4.19-5.50); Red Cell Distribution Width 12.6 % (11.5-14.5); Segmented Neutrophils % 63.9 %
[2018-03-31] MEDS ORDERED: Isovue-370 500 ML INFUS..BTL IV ONE (14:44)
[2018-03-31 14:45] LABS: Prothrombin Time 11.5 Seconds (9.4-12.1)
[2018-03-31 14:48] LABS: Activated Partial Thrombo Time 29.5 Seconds (26.0-36.0)
[2018-03-31 14:58] LABS: Alanine Aminotransferase 8 Units/L (7-52); Albumin 3.7 g/dL (3.5-5.7); Albumin/Globulin Ratio 1.5 (1.1-2.2); Alkaline Phosphatase 85 Units/L (34-104); Aspartate Amino Transferase 11 Units/L (13-39); BUN/Creatinine Ratio 14 (6-26); Bilirubin,Direct 0.1 mg/dL (0.0-0.2); Bilirubin,Indirect 0.5 mg/dL (0.0-1.2); Bilirubin,Total 0.6 mg/dL (0.3-1.0); Blood Urea Nitrogen 23 mg/dL (8-23); Calcium 8.7 mg/dL (8.6-10.3); Carbon Dioxide 21 mEq/L (23-29); Chloride 103 mEq/L (98-107); Ethanol < 10 mg/dL (Less than 10); Globulin 2.4 g/dL (2.4-3.5); Glucose 136 mg/dL (70-105); Osmolality,Calculated 280 (280-300); Potassium 4.2 mEq/L (3.5-5.1); Sodium 132 mEq/L (136-145); Total Protein 6.1 g/dL (6.4-8.9); Troponin I < 0.03 ng/mL (< 0.04); eGFR For Non-African Americans 39 (> 60)
[2018-03-31] MEDS ORDERED: 0.9 % Sodium Chloride 1,000 ML IVC ONE (15:05)
[2018-03-31 15:24] LABS: Bacteria,Urine None Seen per hpf (None-Few); Bilirubin,Urine Negative (Negative); Blood,Urine Negative (Negative); Clarity,Urine Clear (Clear); Color,Urine Yellow (Yellow); Glucose,Urine (UA) Normal (Normal); Ketones,Urine Trace mg/dL (Negative); Leukocyte Esterase,Urine Negative (Negative); Nitrite,Urine Negative (Negative); Protein,Urine Trace mg/dL (Neg-Trace); Specific Gravity,Urine 1.022 (1.010-1.025); Squamous Epithelial Cell,Urine Many per lpf (None-Few); Urobilinogen,Urine Normal (Normal)
[2018-03-31 15:36] LABS: Hyaline Casts,Urine Many per lpf (None-Few)
[2018-03-31 15:41] LABS: Amphetamine Screen,Urine Negative ng/mL (Cutoff=1000); Barbiturate Screen,Urine Negative ng/mL (Cutoff=200); Benzodiazepines Screen,Urine Negative ng/mL (Cutoff=200); Cannabinoid Screen,Urine Negative ng/mL (Cutoff = 50); Cocaine Screen,Urine Negative ng/mL (Cutoff= 300); Opiate Screen,Urine Negative ng/mL (Cutoff=300); Phencyclidine Screen,Urine Negative ng/mL (Cutoff=25)
--- NOTE | 2018-03-31 16:58 | Emergency Department Note ---
Disposition Clinical Impression: Altered mental status Qualifiers: Altered mental status type: unspecified Qualified Code(s): R41.82 - Altered mental status, unspecified Disposition: Admitted As Inpatient Referrals: Kolton Stanton Jr, MD [Primary Care Provider] - Dizziness HPI - General Chief Complaint: ED Syncope Stated Complaint: Altered Mental Status Time Seen by Provider: 03/31/18 14:17 Source: EMS Limitations: no limitations - Related Data Home Medications Medication Instructions Recorded Confirmed Aspirin Enteric Coated [Aspirin EC] 81 mg PO DAILY 02/18/15 02/19/18 Atenolol [Tenormin] 100 mg PO DAILY 02/18/15 02/19/18 Calcium Carbonate/Vitamin D3 1 each PO DAILY 02/18/15 02/19/18 [Calcium 600 + D Tablet] Furosemide [Lasix] 40 mg PO DAILY PRN 02/18/15 02/19/18 Losartan Potassium [Cozaar] 100 mg PO DAILY 02/19/18 02/19/18 Metformin HCl [Metformin HCl ER] 500 mg PO QPM 02/19/18 02/19/18 Netarsudil Mesylate [Rhopressa] 1 drop BOTH EYES HS 02/19/18 02/19/18 Previous Rx's Medication Instructions Recorded Patient Taking Own Medication 1 each PO DAILY each 02/21/18 amLODIPine [Norvasc] 5 mg PO DAILY 30 Days #30 tablet 02/21/18 Allergies Allergy/AdvReac Type Severity Reaction Status Date / Time Penicillins Allergy Mild Hives Verified 02/18/15 10:43 Past Medical History - Past Medical History Medical history: Reports: cancer, coronary artery disease, hyperlipidemia, hypertension, myocardial infarction, other Surgical history: Reports: cholecystectomy, coronary bypass (CABG) Psychiatric history: Reports: no psych history - Social History Smoking Status: Never smoker Smokeless Tobacco Status: No Alcohol use: Reports: none Drug use: Reports: none Physical Exam - General Limitations: no limitations General appearance: alert, in no apparent distress Course Vital Signs Temperature 97.7 F 03/31/18 14:20 Pulse Rate 70 03/31/18 14:20 Respiratory Rate 20 03/31/18 14:20 Blood Pressure 127/62 03/31/18 14:20 O2 Sat by Pulse Oximetry 100 03/31/18 14:20 Temperature 97.7 F 03/31/18 14:20 Pulse Rate 84 03/31/18 16:35 Respiratory Rate 21 03/31/18 16:35 Blood Pressure 127/63 03/31/18 16:35 O2 Sat by Pulse Oximetry 100 03/31/18 16:35 Oxygen Delivery Oxygen Delivery Room Air Dizziness - Lab Data Result diagrams: 03/31/18 14:26 03/31/18 14:26 Lab Results 03/31/18 03/31/18 03/31/18 Range/Units 14:26 14:26 14:26 WBC 6.9 (4.3-11.1) K/mcL RBC 3.65 L (4.19-5.50) M/mcL Hgb 11.1 L (12.9-16.9) g/dL Hct 32.9 L (37.5-50.1) % MCV 90.1 (83.0-100.0) fL MCH 30.4 (28.0-33.3) pg MCHC 33.7 (31.6-35.5) g/dL RDW 12.6 (11.5-14.5) % Plt Count 163 (140-400) K/mcL MPV 9.1 L (9.4-12.4) fL Immature Gran % 1.2 (0-4) % Seg Neutrophils % 63.9 % Lymphocytes % 19.0 % Monocytes % 10.3 % Eosinophils % 4.7 % Basophils % 0.9 % Neutrophils # 4.4 (1.6-8.9) K/mcL Lymphocytes # 1.3 (0.6-4.6) K/mcL Monocytes # 0.7 (0.0-1.3) K/mcL Eosinophils # 0.3 (0.0-0.6) K/mcL Basophils # 0.1 (0.0-0.2) K/mcL PT 11.5 (9.4-12.1) Seconds INR 1.0 APTT 29.5 (26.0-36.0) Seconds Sodium 132 L (136-145) mEq/L Potassium 4.2 (3.5-5.1) mEq/L Chloride 103 (98-107) mEq/L Carbon Dioxide 21 L (23-29) mEq/L BUN 23 (8-23) mg/dL Creatinine 1.67 H (0.70-1.30) mg/dL Est GFR ( Amer) 48 L (> 60) Est GFR (Non-Af Amer) 39 L (> 60) BUN/Creatinine Ratio 14 (6-26) Glucose 136 H (70-105) mg/dL Calculated Osmolality 280 (280-300) Calcium 8.7 (8.6-10.3) mg/dL Total Bilirubin 0.6 (0.3-1.0) mg/dL Direct Bilirubin 0.1 (0.0-0.2) mg/dL Indirect Bilirubin 0.5 (0.0-1.2) mg/dL AST 11 L (13-39) Units/L ALT 8 (7-52) Units/L Alkaline Phosphatase 85 (34-104) Units/L Troponin I < 0.03 (< 0.04) ng/mL Serum Total Protein 6.1 L (6.4-8.9) g/dL Albumin 3.7 (3.5-5.7) g/dL Globulin 2.4 (2.4-3.5) g/dL Albumin/Globulin Ratio 1.5 (1.1-2.2) Urine Color (Yellow) Urine Clarity (Clear) Urine pH (5.0-8.0) pH Units Ur Specific [place] (1.010-1.025) Urine Protein (Neg-Trace) mg/dL Urine Glucose (UA) (Normal) mg/dL Urine Ketones (Negative) mg/dL Urine Blood (Negative) Urine Nitrite (Negative) Urine Bilirubin (Negative) Urine Urobilinogen (Normal) mg/dL Ur Leukocyte Esterase (Negative) Urine Microscopic RBC (0-3) per hpf Urine Microscopic WBC (0-3) per hpf Ur Squamous Epith Cells (None-Few) per lpf Urine Bacteria (None-Few) per hpf Hyaline Casts (None-Few) per lpf Ur Culture Indicated? (NO) Urine Opiates Screen (Ikrmab=295) ng/mL Ur Barbiturates Screen (Vpcnlp=962) ng/mL Ur Phencyclidine Scrn (Cutoff=25) ng/mL Ur Amphetamines Screen (Xrkdio=6290) ng/mL U Benzodiazepines Scrn (Nxdemq=134) ng/mL Urine Cocaine Screen (Cutoff= 300) ng/mL U Marijuana (THC) Screen (Cutoff = 50) ng/mL Ur Drug Screen Interp Ethyl Alcohol < 10 (Less than 10) mg/dL 03/31/18 03/31/18 Range/Units 14:46 14:46 WBC (4.3-11.1) K/mcL RBC (4.19-5.50) M/mcL Hgb (12.9-16.9) g/dL Hct (37.5-50.1) % MCV (83.0-100.0) fL MCH (28.0-33.3) pg MCHC (31.6-35.5) g/dL RDW (11.5-14.5) % Plt Count (140-400) K/mcL MPV (9.4-12.4) fL Immature Gran % (0-4) % Seg Neutrophils % % Lymphocytes % % Monocytes % % Eosinophils % % Basophils % % Neutrophils # (1.6-8.9) K/mcL Lymphocytes # (0.6-4.6) K/mcL Monocytes # (0.0-1.3) K/mcL Eosinophils # (0.0-0.6) K/mcL Basophils # (0.0-0.2) K/mcL PT (9.4-12.1) Seconds INR APTT (26.0-36.0) Seconds Sodium (136-145) mEq/L Potassium (3.5-5.1) mEq/L Chloride (98-107) mEq/L Carbon Dioxide (23-29) mEq/L BUN (8-23) mg/dL Creatinine (0.70-1.30) mg/dL Est GFR ( Amer) (> 60) Est GFR (Non-Af Amer) (> 60) BUN/Creatinine Ratio (6-26) Glucose (70-105) mg/dL Calculated Osmolality (280-300) Calcium (8.6-10.3) mg/dL Total Bilirubin (0.3-1.0) mg/dL Direct Bilirubin (0.0-0.2) mg/dL Indirect Bilirubin (0.0-1.2) mg/dL AST (13-39) Units/L ALT (7-52) Units/L Alkaline Phosphatase (34-104) Units/L Troponin I (< 0.04) ng/mL Serum Total Protein (6.4-8.9) g/dL Albumin (3.5-5.7) g/dL Globulin (2.4-3.5) g/dL Albumin/Globulin Ratio (1.1-2.2) Urine Color Yellow (Yellow) Urine Clarity Clear (Clear) Urine pH 6.0 (5.0-8.0) pH Units Ur Specific [place] 1.022 (1.010-1.025) Urine Protein Trace (Neg-Trace) mg/dL Urine Glucose (UA) Normal (Normal) mg/dL Urine Ketones Trace H (Negative) mg/dL Urine Blood Negative (Negative) Urine Nitrite Negative (Negative) Urine Bilirubin Negative (Negative) Urine Urobilinogen Normal (Normal) mg/dL Ur Leukocyte Esterase Negative (Negative) Urine Microscopic RBC 5-15 H (0-3) per hpf Urine Microscopic WBC 5-15 H (0-3) per hpf Ur Squamous Epith Cells Many H (None-Few) per lpf Urine Bacteria None Seen (None-Few) per hpf Hyaline Casts Many H (None-Few) per lpf Ur Culture Indicated? NO (NO) Urine Opiates Screen Negative (Sidgzg=919) ng/mL Ur Barbiturates Screen Negative (Kezziq=875) ng/mL Ur Phencyclidine Scrn Negative (Cutoff=25) ng/mL Ur Amphetamines Screen Negative (Tidwmp=9927) ng/mL U Benzodiazepines Scrn Negative (Jvckuc=500) ng/mL Urine Cocaine Screen Negative (Cutoff= 300) ng/mL U Marijuana (THC) Screen Negative (Cutoff = 50) ng/mL Ur Drug Screen Interp See Below Ethyl Alcohol (Less than 10) mg/dL Attestation Statement - Attestation Attestation: I examined this patient and my medical decision-making was reviewed with the Resident Physician. I agree with the documented findings, disposition and treatment plan as described except to the extent set forth below. 83 year old male presents to the ED with complaints of AMS and had an unresponis ve episode wtinessed by family described as his eyes rolling back and fixating and then his mouth turning blue and it last for about 5-6 seconds and then resolved. This is the 3rd episode over the past year. And there is a history of serizure with his father and sister who has both passed. No nuero defecits and he is back ot his baseline. he has some abnromla pupils secodary to cataract surgeries. My clinical suspicion is for seizures secondary to possible stroke complication or other etiology for seizure in the absence nature. WE will discuss with neurology and then admit for MRI and EEG.
--- NOTE | 2018-03-31 17:24 | Internal Med History&Physical ---
Date of Encounter: 03/31/18 Time of Encounter: 17:30 Internal Medicine - H&P: HPI Chief complaint: syncopal episode Admitted From: Home Plans for Post Hospital Care: Home History of present illness: Mr. James is a 83 year old male pmhx cad, cabg, htn, dm, hld, corneal implant who presented form home with syncopal episode. He had syncopal episode this summer, then presented with pre syncope last month with work up negative, seen by neurology. Today he was outside on a swing sitting while family was doing work and all the sudden had LOC. Family no longer at bedside, but ED reports they were informed pt was breathing but had blue lips, eyes were fixed and he acted confused afterwards. Pt remembers feelinglightheaded prior, has no recollection of event, and next recalls being transported to ED. He was back to baseline mentation on arrival. No tongue btiing, jerking movements, bowel or bladder incontinece noted. He denies any preceding chest pain, pressure, sob, palpitations. None since event or in recent history. He has not been ill, has been eating and drinking without difficulty, no new meds or med changes. Notes bps at home have been 100/60s which is low for him. He denies any numbness, tingling, weakness, paralysis, nair, vision changes or speech changes. Not currently lightheaded or dizzy. pulm- no cough, sob, orthopnea, pnd, congestion, wheezing, sputum gi- no nausea, emesis, abd pain, diarrhea, constipation, melena, hematochezia gen- no fatigue, weight changes, nightsweats Past Med Surg Social Fam HX - Past Medical History Medical history: cancer, coronary artery disease, hyperlipidemia, hypertension, myocardial infarction, other Additional medical history: Colon CA Psychiatric history: no psych history - Past Surgical History Surgical History: cholecystectomy, coronary bypass (CABG) Additional surgical history: colon CA, hernia repair, cornea transplant - Social History Smoking Status: Never smoker Smokeless Tobacco Status: No Alcohol use: none Drug use: none Occupational status: retired - Family History Father Hx Family Cardiac Disorders: Yes (CHF) Mother Hx Family Cardiac Disorders: Yes (ME) - Additional Family History Additional family history: family is no longer at bedside, but ED physician notes earlier today family noted fam hx of syncope Internal Medicine - H&P: Meds Aspirin [Lo-Dose Aspirin EC] 81 mg PO DAILY 03/31/18 [History] Atenolol 100 mg PO DAILY 03/31/18 [History] Calcium Carbonate/Vitamin D3 [Calcium 600 + Vit D Tablet] 1 tab PO DAILY 03/31/18 [History] Furosemide [Lasix] 40 mg PO DAILY PRN 03/31/18 [History] Latanoprost [Xalatan] 1 drop BOTH EYES HS 03/31/18 [History] Losartan Potassium [Cozaar] 100 mg PO DAILY 03/31/18 [History] Metformin HCl [Metformin HCl ER] 500 mg PO QPM 03/31/18 [History] Netarsudil Mesylate [Rhopressa] 1 drop BOTH EYES HS 03/31/18 [History] Tobramycin/Lotepred Etab [Zylet Eye Drops] 1 drop RIGHT EYE BID 03/31/18 [History] amLODIPine [Norvasc] 5 mg PO DAILY 03/31/18 [History] Allergy/AdvReac Type Severity Reaction Status Date / Time Penicillins Allergy Mild Hives Verified 03/31/18 16:56 All Systems PM: A 10-system review of systems was performed and is negative for pertinent findings except as documented above in the HPI. - Constitutional Vitals: Temp Pulse Resp BP Pulse Ox 97.7 F 84 21 127/63 100 03/31/18 14:20 03/31/18 16:35 03/31/18 16:35 03/31/18 16:35 03/31/18 16:35 Exam: General: awake, alert, appears stated age HEENT:EOM intact, pupils are uneuql at baseline with dilated left pupil and glass implant per pt in right eye, round, moist mucus membranes, clear or opharynx, no conjunctival pallor Neck: supple, trachea midline Cardiovascular:regular rate and rhythm, normal S1 & S2, no rubs, murmurs or gallops. No JVD. radial pulses 2+, LLL increased calf size from right and 1+ pitting edema to mid hammond, RLE trace pitting edema to hammond, no carotid bruits appreciated bl Lungs:Normal breath sounds, no wheezes, or crackles. Normal respiratory effort on ra Abdomen:Soft, non-tender, non-distended, no rigidity, + bowel sounds Extremities:No deformity, no edema or tenderness, no joint swelling or clubbing. Neurological: AAOx3, CN grossly intact, no dysarthria or aphasia, no pronator drift, no focal deficits , strenght 5/5 in all ext and sensation to lt touch e qual throught all ext and face Skin:Normal color, no rash, no pallor, no jaundice Internal Med - H&P Results - Labs CBC & Chem 7: 03/31/18 14:26 03/31/18 14:26 Labs: Short CBC 03/31/18 Range/Units 14:26 WBC 6.9 (4.3-11.1) K/mcL Hgb 11.1 L (12.9-16.9) g/dL Hct 32.9 L (37.5-50.1) % Plt Count 163 (140-400) K/mcL Neutrophils # 4.4 (1.6-8.9) K/mcL BMP 03/31/18 14:26 Sodium 132 L Potassium 4.2 Chloride 103 Carbon Dioxide 21 L BUN 23 Creatinine 1.67 H Glucose 136 H Calcium 8.7 Cardiac Enzymes 03/31/18 Range/Units 14:26 Troponin I < 0.03 (< 0.04) ng/mL Liver Function 03/31/18 Range/Units 14:26 Total Bilirubin 0.6 (0.3-1.0) mg/dL Direct Bilirubin 0.1 (0.0-0.2) mg/dL AST 11 L (13-39) Units/L ALT 8 (7-52) Units/L Alkaline Phosphatase 85 (34-104) Units/L Albumin 3.7 (3.5-5.7) g/dL Urine 03/31/18 Range/Units 14:46 Urine Color Yellow (Yellow) Urine Clarity Clear (Clear) Urine pH 6.0 (5.0-8.0) pH Units Ur Specific [place] 1.022 (1.010-1.025) Urine Protein Trace (Neg-Trace) mg/dL Urine Glucose (UA) Normal (Normal) mg/dL - Impressions ITS Impressions Chest X-Ray 03/31/18 14:18 IMPRESSION: No acute pulmonary disease. Calcific atherosclerotic disease aorta. D/ / Robin Moncada / Robin Moncada Interpreting Provider: Robin Moncada Head CT 03/31/18 14:18 IMPRESSION: 1. No acute intracranial abnormality. 2. No acute fracture or subluxation of the cervical spine. D/ : / 03/31/2018 16:26:12 Marcos Terry MD / jose angel Interpreting Provider: Marcos Terry MD Cervical Spine CT 03/31/18 14:19 IMPRESSION: 1. No acute intracranial abnormality. 2. No acute fracture or subluxation of the cervical spine. D/ : / 03/31/2018 16:26:12 Marcos Terry MD / jose angel Interpreting Provider: Marcos Terry MD Chest CTA 03/31/18 14:19 IMPRESSION: 1. No pulmonary embolism. 2. Calcific atherosclerosis aorta and coronary arteries status post open heart surgery. 3. Small volume bilateral pleural effusion with minimal bibasilar relaxation atelectasis. 4. Rounded soft tissue densities posterior both lower lungs have the appearance of rounded atelectasis but are nonspecific. Additional evaluation with PET-CT follow-up imaging should be considered versus short-term interval CT chest follow-up to ensure stability. ____ Fleischner Society guidelines for follow-up and management of incidentally detected pulmonary nodules: Single Solid Nodule: Nodule size less than 6 mm In a low-risk patient, no routine follow-up. In a high-risk patient, optional CT at 12 months. Nodule size equals 6-8 mm In a low-risk patient, CT at 6-12 months, then consider CT at 18-24 months. In a high-risk patient, CT at 6-12 months, then CT at 18-24 months. Nodule size greater than 8 mm In a low-risk patient, consider CT at 3 months, PET/CT, or tissue sampling. In a high-risk patient, consider CT at 3 months, PET/CT, or tissue sampling. Multiple Solid Nodules: Nodule size less than 6 mm In a low-risk patient, no routine follow-up. In a high-risk patient, optional CT at 12 months. Nodule size equals 6-8 mm In a low-risk patient, CT at 3-6 months, then consider CT at 18-24 months. In a high-risk patient, CT at 3-6 months, then CT at 18-24 months. Nodule size greater than 8 mm In a low-risk patient, CT at 3-6 months, then consider CT at 18-24 months. In a high-risk patient, CT at 3-6 months, then CT at 18-24 months. - Low risk patients include individuals with minimal or absent history of smoking and other known risk factors. - High risk patients include individuals with a history or smoking or known risk factors. Radiology 2017 http://pubs.rsna.org/doi/full/10.1148/radiol.2921994886 D/ / Robin Moncdaa / Robin Moncada Interpreting Provider: Robin Moncada - Assessment and plan (1) Syncope Current Visit: Yes Status: Acute Assessment and plan: Hx of syncopal episode in past, unknown etiology will rule out cardiogenic and neurogenic causes including acs, arrhythmia, orthostatic hypotension, hypotension on home meds, thromboembolic event, CT scan has ruled OUT pe, he is known NOT to have sig carotid stenosis, rule out seizure, IC pathology resulting in seizure, unlikely CVA given only sx was syncope but will rule out -tele, trend trops, ekg without acute ischemic changes, check orthostats, monitor bp trend, check limited echo -echo 02/2018 ef 60%, mild diastolic dysfunction, mild TR -CUS 02/2018 without significant atherosclerosis -seizure precautions, neuro checks,nihs scales, swallow screen neuro consulted in ED and pending eval, check MRI head -CXR neg -C spine CT neg for acute findings -CTA chest no PE, sm bl pleural effusions -CT head neg acute findings -will hold BP meds (takes them in AM) and monitor bp trends, has been 120s/60s, would allow permissive htn at this time until rule out acute cva -cont asa, not on statin given age, check a1c, tsh, lipid panel -uds neg, etoh neg -he has LLE edema that he feels is at baseline and states he has a "venous pro blem"--will check LLE US Qualifiers: Syncope type: unspecified Qualified Code(s): R55 - Syncope and collapse (2) [id number] kidney injury Current Visit: Yes Status: Acute Assessment and plan: baseline creat appears to be 1.3s, admit creat 1.67 s/p dye load now, will cont to monitor -ua neg for infection, monitor output -avoid nephro toxic agents at this time, hold home arb and home prn lasix Qualifiers: Acute renal failure type: unspecified Chronic kidney disease stage: unspecified stage Qualified Code(s): N17.9 - Acute kidney failure, unspecified; N18.9 - Chronic kidney disease, unspecified (3) Acute on chronic anemia Current Visit: Yes Status: Acute Assessment and plan: Unknown etiology, bl hgb appears to be 11.8-12 this past year, admitting hgb 1 1.1 -monitor for bleeding, pt denies any, inr normal and plts wnl (4) Hyponatremia Current Visit: No Status: Chronic Assessment and plan: at baseline, no cognitive deficits (5) CAD (coronary artery disease) Current Visit: No Status: Chronic Assessment and plan: with Hx CABG -cont asa, not on statin, holding arb due to aristides on ckd and holding BB at this time allowing permissive htn and pt reporting home bps are running low -trop neg, will trend, ekg without acute ischemic changes Qualifiers: Coronary Disease-Associated Artery/Lesion type: bypass graft [place] vs. 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 insulin use: wi [facility] use Diabetes mellitus complication status: without compli cation Qualified Code(s): E11.9 - Type 2 diabetes mellitus without compli cations (7) HTN (hypertension) Current Visit: No Status: Chronic Assessment and plan: Pt reporting home bps of late 100/60s -normotensive currently check orthostats -holding meds tonight as above cont to monitor Qualifiers: Hypertension type: essential hypertension Qualified Code(s): I10 - Essential (primary) hypertension (8) Rounded radiologic density Current Visit: Yes Status: Acute Assessment and plan: CTA chest with incidental finding of bl LL rounded soft tissue densities that appear to be rounded atelectasis. Left 16x23 mm and right [id number]. given autumn monique rec is for CT in 3-6 months or outpt PET-CT - Time Spent With Patient Total time spent is greater than 50% in coordination of care (as documented) at patient's floor/unit and/or counseling patient: Greater than 35 minutes
[2018-03-31] MEDS ORDERED: Acetaminophen 325 MG TABLET PO PRN (17:33)
[2018-03-31] MEDS ORDERED: Naloxone 0.4 MG/ML INJ IVP PRN (17:33)
[2018-03-31 17:49] LABS: Thyroid Stimulating Hormone 5.045 mcIU/mL (0.340-5.600)
[2018-03-31] MEDS ORDERED: Dextrose Gel 15 GM/37.5 ML TUBE PO PRN ×2 (18:26)
[2018-03-31] MEDS ORDERED: *HR* Dextrose 50 % in Water (Syg) 50 ML SYRINGE IVP PRN (18:26)
[2018-03-31] MEDS ORDERED: D5% in Water 1,000 ML IVC PRN (18:26)
--- NOTE | 2018-03-31 19:06 | Neurology - Consult Note ---
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 Suggest getting a cardiac workup at the same time get an MRI of the brain to exclude any possibility of the stroke or also for any metastasis as he is a history of colon cancer in the past Also suggest to get a MRA of the head and neck. Suggest checking orthostatic hypotension Check for other metabolic abnormalities in particularly for any dehydration as may be orthostatic hypotension is a main reason for his symptoms other treatment is as per primary team Discussed with the family was present at the bedside History of Present Illness HPI: Mr. James is a 83 year old male presents to the ED with complaints of AMS and had an unresponisve episode wtinessed by family described as his eyes rolling back and fixating and then his mouth turning blue and it last for about 5-6 seconds and then resolved. This is the 3rd episode over the past year. And there is a history of serizure with his father and sister who has both passed. No nuero defecits and he is back ot his baseline. he has some abnromla pupils secodary to cataract surgeries. Patient has similar presentation in January had an EEG that was reported as negative he did have few other Past Med Surg Social Fam HX - Past Medical History Medical history: cancer, coronary artery disease, hyperlipidemia, hypertension, myocardial infarction, other Additional medical history: Colon CA Psychiatric history: no psych history - Past Surgical History Surgical History: cholecystectomy, coronary bypass (CABG) Additional surgical history: colon CA, hernia repair, cornea transplant - Social History Smoking Status: Never smoker Smokeless Tobacco Status: No Alcohol use: none Drug use: none - Family History Father Hx Family Cardiac Disorders: Yes (CHF) Mother Hx Family Cardiac Disorders: Yes (CT) Medications and Allergies Aspirin [Lo-Dose Aspirin EC] 81 mg PO DAILY 03/31/18 [History] Atenolol 100 mg PO DAILY 03/31/18 [History] Calcium Carbonate/Vitamin D3 [Calcium 600 + Vit D Tablet] 1 tab PO DAILY 03/31/18 [History] Latanoprost [Xalatan] 1 drop BOTH EYES HS 03/31/18 [History] Losartan Potassium [Cozaar] 100 mg PO DAILY 03/31/18 [History] Metformin HCl [Metformin HCl ER] 500 mg PO QPM 03/31/18 [History] Netarsudil Mesylate [Rhopressa] 1 drop BOTH EYES HS 03/31/18 [History] Tobramycin/Lotepred Etab [Zylet Eye Drops] 1 drop RIGHT EYE BID 03/31/18 [History] amLODIPine [Norvasc] 5 mg PO DAILY 03/31/18 [History] Furosemide [Lasix] 20 mg PO DAILY PRN #0 04/03/18 [Rx] Allergy/AdvReac Type Severity Reaction Status Date / Time Penicillins Allergy Mild Hives Verified 03/31/18 16:56 All Systems: The remainder of the systems were reviewed and are negative Physical Examination - Vital Signs Vital Signs: Initial Vital Signs Temp Pulse Resp BP Pulse Ox 97.7 F 70 20 127/62 100 03/31/18 14:20 03/31/18 14:20 03/31/18 14:20 03/31/18 14:20 03/31/18 14:20 - Exam Exam: GENERAL: Comfortable in no acute distress HEENT: Normal LUNGS: CTA HEART: RRR, S1 S2 Audible, no murmur EXTREMITIES: No Pedal edema. DETAILED NEUROLOGICAL EXAMINATION: MENTAL STATUS: Oriented to person, place, date and situation. Memory: knows the President, Aware of recent events Recent Memory Intact Cranial Nerve Examination: CN - II: Visual Acuity, Field of Vision Normal, Fundus examination: No disk edema, Pupils- size shape reaction to light and accommodation: All normal. CN III, IV, : External ocular movements were intact, Pupils were reactive, Nodrooping of the eyelids CN V: Sensation over the face to light touch and pinprick all normal. Corneal reflexes not tested, jaw jerk normal. CN VII: No facial asymmetry, no flattening of nasolabial folds, no difficulty in closing the eyes, no loss of forehead wrinkles, no difficulty in eye-closure, frowning raising eyebrows. CNVIII: No significant hearing loss CN IX, X: Uvula centralized not deviated, Gag reflex: Not tested CN X1: Sternocleidomastoid, trapezius, normal or evidence of any weakness. CN X11: No Dysarthria, no wasting or fibrilation f tongue muscles, no deviation, tongue muscle strength normal. Motor examination: No hypertrophy, tone was normal, power grade 0-5 Upper limbs Proximal- No difficulty in lifting the arms above the head. Distal- No weakness in distal muscles On formal testing 5/5 all over Lower limbs On formal testing 5/5 all over Coordination: [id number] normal. Target pursuit normal finger tapping normal, Rapid alternating moment of wrist normal Sensory system: Superficial sensations- Touch normal. Pain- Pinprick, Temperature all normal, Deep sensation normal, Joint position sense normal. Cortical sensation, Tactile discrimination, localization and extinction all normal. Deep tendon reflexes. Symmetrical bilateral, No evidence of Babinski. No sign of meningeal irritation Gait Examination: Deferred Results - Laboratory Findings CBC and BMP: 04/03/18 04:12 04/03/18 04:12 Abnormal lab findings: Abnormal lab results RBC 3.65 M/mcL (4.19-5.50) L 03/31/18 14:26 Hgb 11.1 g/dL (12.9-16.9) L 03/31/18 14:26 Hct 32.9 % (37.5-50.1) L 03/31/18 14:26 MPV 9.1 fL (9.4-12.4) L 03/31/18 14:26 Sodium 132 mEq/L (136-145) L 03/31/18 14:26 Carbon Dioxide 21 mEq/L (23-29) L 03/31/18 14:26 Creatinine 1.67 mg/dL (0.70-1.30) H 03/31/18 14:26 Est GFR ( Amer) 48 (> 60) L 03/31/18 14:26 Est GFR (Non-Af Amer) 39 (> 60) L 03/31/18 14:26 Glucose 136 mg/dL (70-105) H 03/31/18 14:26 AST 11 Units/L (13-39) L 03/31/18 14:26 Serum Total Protein 6.1 g/dL (6.4-8.9) L 03/31/18 14:26 Urine Ketones Trace mg/dL (Negative) H 03/31/18 14:46 Urine Microscopic RBC 5-15 per hpf (0-3) H 03/31/18 14:46 Urine Microscopic WBC 5-15 per hpf (0-3) H 03/31/18 14:46 Ur Squamous Epith Cells Many per lpf (None-Few) H 03/31/18 14:46 Hyaline Casts Many per lpf (None-Few) H 03/31/18 14:46 Consult Discharge Plan - Plan Instructions: Syncope (DC), Anemia (GEN) Additional Instructions: ACTIVITY: Moderate activity for the next 7 days. No lifting more than 5 pounds (gallon of milk) for 1 week. BATHING /SHOWERING: Do not remove the large bandage over the site for 2 days. Do not allow the device to get wet for 7-10 days. You may bathe/shower, but do not use soap and water on the site. When bathing, keep the site dry by covering with Saran wrap or a towel. WOUND CARE: The white steri-strips will start to peel away and come off after 14 days, or your doctor will remove them after [address] anything into or on top of the incision. Do not use cotton swabs. Do not use any antibiotic ointment or Vitamin E on the site. REMINDERS: Notify security personnel at the airport that you have a device before you go through airport security screening. When at places with security monitors, such as a grocery store, do not linger near these monitors. It is fine to walk past them in a normal manner. Refer to your owners manual for more specific directions. CARRY YOUR IDENTIFICATION CARD WITH YOU AT ALL TIMES Return to work as instructed per physician Resume driving as instructed per physician Keep all scheduled follow up appointments Resume medications as instructed Contact [facility] ( ) if: You develop excessive bleeding from insertion or wound site not controlled by applying pressure You develop a fever greater than 101 degrees Fahrenheit Your incision becomes reddened at or around the site Your incision develops yellowish or greenish drainage or development of white pimple-like bumps You experience excessive pain You experience muscle switching If you experience chest pain, shortness of breath, dizziness, or extreme tiredness, stop the activity and rest. Please notify [facility] office if you experience any of these symptoms and they are not relieved by rest please call 911! Follow up with PCP to follow CT of chest (need repeat in 3 months) Referrals: [facility] [Provider Group] - 04/12/18 9:00 am Kolton Stanton Jr, MD [Primary Care Provider] - 04/09/18 11:00 am
[2018-03-31] MEDS: Insulin LISPRO 300 UNITS/3 ML VIAL SQ SCH (20:02)
--- NOTE | 2018-03-31 20:55 | Event Note ---
Date of Encounter: 03/31/18 Time of Encounter: 20:54 Patient requesting to use his own supply of eye medications, family has brought from home. Order placed to be able to use own medications for eye gtts .
[2018-03-31] MEDS ORDERED: Latanoprost 2.5 ML BOTTLE BOTH EYES SCH ×2 (21:00)
[2018-03-31] MEDS ORDERED: NETARSUDIL MESYLATE BOTH EYES SCH (21:00)
[2018-03-31] MEDS: TOBRAMYCIN OP SCH (21:09)
[2018-03-31] MEDS: LOTEPREDNOL OP SCH (21:09)
[2018-03-31] MEDS: *HR* Heparin 5,000 UNIT/ML VIAL SQ SCH (21:15)
[2018-04-01 04:58] LABS: Basophils # 0.1 K/mcL (0.0-0.2); Basophils % 0.9 %; Eosinophils # 0.3 K/mcL (0.0-0.6); Eosinophils % 4.2 %; Hematocrit 32.5 % (37.5-50.1); Hemoglobin 11.1 g/dL (12.9-16.9); Immature Granulocytes % 0.9 % (0-4); Lymphocytes # 1.2 K/mcL (0.6-4.6); Lymphocytes % 18.4 %; Mean Corpuscular HGB Conc 34.2 g/dL (31.6-35.5); Mean Corpuscular Hemoglobin 30.7 pg (28.0-33.3); Mean Corpuscular Volume 89.8 fL (83.0-100.0); Mean Platelet Volume 9.5 fL (9.4-12.4); Monocytes # 0.6 K/mcL (0.0-1.3); Monocytes % 8.8 %; Neutrophils # 4.3 K/mcL (1.6-8.9); Platelet Count 147 K/mcL (140-400); Red Blood Count 3.62 M/mcL (4.19-5.50); Red Cell Distribution Width 12.6 % (11.5-14.5); Segmented Neutrophils % 66.8 %
[2018-04-01 05:17] LABS: BUN/Creatinine Ratio 15 (6-26); Blood Urea Nitrogen 18 mg/dL (8-23); Calcium 9.1 mg/dL (8.6-10.3); Carbon Dioxide 21 mEq/L (23-29); Chloride 109 mEq/L (98-107); Chol/HDL Ratio 3.2 (0-4.9); Cholesterol 144 mg/dL (< 200); Glucose 120 mg/dL (70-105); HDL Cholesterol 45 mg/dL (40-59); LDL Cholesterol,Calculated 75 mg/dL (0-99); Magnesium 1.8 mg/dL (1.6-2.6); Osmolality,Calculated 285 (280-300); Potassium 3.9 mEq/L (3.5-5.1); Sodium 136 mEq/L (136-145); Triglycerides 118 mg/dL (< 150); eGFR For Non-African Americans 56 (> 60)
[2018-04-01 05:19] LABS: Cholesterol 142 mg/dL (< 200); HDL Cholesterol 48 mg/dL (40-59); LDL Cholesterol,Calculated 71 mg/dL (0-99); Triglycerides 116 mg/dL (< 150); Troponin I < 0.03 ng/mL (< 0.04)
[2018-04-01] MEDS: *HR* Heparin 5,000 UNIT/ML VIAL SQ SCH ×3 (05:33→21:15)
[2018-04-01] MEDS ORDERED: Gadolinium Contrast Agent (WT Based) IV PRN (08:21)
--- NOTE | 2018-04-01 08:33 | Internal Med Progress Note ---
Hospitalist Progress Note - Encounter Date of Encounter: 04/01/18 Time of Encounter: 10:00 - Subjective Interval History: awake, no family present. no lightheadedness or dizziness. Feeling baseline. denies cp, pressure or palpitations. No sob or wheezing. 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 No JVD. LLL increased calf size from right and 1+ pitting edema to mid hammond, RLE trace pitting edema to hamm[place] Lungs:Normal breath sounds, no wheezes, or crackles. Normal respiratory effort on ra Neurological: AAOx3, CN grossly intact, no dysarthria or aphasia, no pronator drift, no focal deficits Skin:Normal color, no rash, no pallor - Assessment and Plan (1) Syncope Current Visit: Yes Status: Acute Assessment and Plan: Hx of syncopal episode in past, unknown etiology will rule out cardiogenic and neurogenic causes including acs, arrhythmia, orthostatic hypotension, hypotension on home meds, thromboembolic event, CT scan has ruled OUT pe, he is known NOT to have sig carotid stenosis, rule out seizure, IC pathology resulting in seizure, unlikely CVA given only sx was syncope but will rule out, given history of colon cancer rule out mets -CXR neg -C spine CT neg for acute findings -CTA chest no PE, sm bl pleural effusions -CT head neg acute findings -echo 02/2018 ef 60%, mild diastolic dysfunction, mild TR -CUS 02/2018 without significant atherosclerosis -tele, trend trops neg, ekg without acute ischemic changes, orthostats neg, monitor bp trend, check limited echo -seizure precautions, neuro checks,nihs scales, swallow screen -neuro following- unlikley seizure, rule out cva and brain mets from previous colon cancer and rec for cardiac evaluation at this time -check MRI head, MRA head and neck- pending -will hold BP meds and monitor bp trends, would allow permissive htn at this time until rule out acute cva, bps at goal currently -cont asa, not on statin given age, check [id number], tsh and lipid panel unremarkable -uds neg, etoh neg -he has LLE edema that he feels is at baseline and states he has a "venous pro blem"--will check LLE US- pending -limited echo pending (2) [id number] kidney injury Current Visit: Yes Status: Resolved Assessment and Plan: baseline creat appears to be 1.3s, admit creat 1.67 and resolved to normal with ivf in ed s/p dye load and plan for addl with mra, will cont to monitor -ua neg for infection, monitor output -avoid nephro toxic agents at this time, hold home arb and home prn lasix as above (3) Acute on chronic anemia Current Visit: Yes Status: Acute Assessment and Plan: Unknown etiology, bl hgb appears to be 11.8-12 this past year, admitting hgb 11.1, stable -monitor for bleeding, pt denies any, inr normal and plts wnl (4) Hyponatremia Current Visit: No Status: Chronic Assessment and Plan: at baseline, no cognitive deficits (5) CAD (coronary artery disease) Current Visit: No Status: Chronic Assessment and Plan: with Hx CABG -cont asa, not on statin, holding arb due to aristides on ckd and holding BB at this time allowing permissive htn and pt reporting home bps are running low -trops neg, ekg without acute ischemic changes -cards is consulted as above -echo pending (6) Diabetes Current Visit: No Status: Chronic Assessment and Plan: hold home metformin -check a1c -SSI and accu checks (7) HTN (hypertension) Current Visit: No Status: Chronic Assessment and Plan: Pt reporting home bps of late 100/60s -normotensive to slightly htn now with holding of meds but bps at goal for permissive htn -orthostats neg -holding meds as above cont to monitor (8) Rounded radiologic density Current Visit: Yes Status: Acute Assessment and Plan: CTA chest with incidental finding of bl LL rounded soft tissue densities that appear to be rounded atelectasis. Left 16x23 mm and right 20a42yd. given indio monique rec is for CT in 3-6 months or outpt PET-CT DVT Prophylaxis: hep sq - Time Spent with Patient Total time spent is greater than 50% in coordination of care (as documented) at patient's floor/unit and/or counseling patient: less than 15 minutes Plan of Care Discussed with: patient Internal Medicine: Result - Labs CBC & Chem 7: 04/01/18 04:42 04/01/18 04:42 Labs: Short CBC 03/31/18 04/01/18 Range/Units 14:26 04:42 WBC 6.9 6.4 (4.3-11.1) K/mcL Hgb 11.1 L 11.1 L (12.9-16.9) g/dL Hct 32.9 L 32.5 L (37.5-50.1) % Plt Count 163 147 (140-400) K/mcL Neutrophils # 4.4 4.3 (1.6-8.9) K/mcL BMP 03/31/18 04/01/18 14:26 04:42 Sodium 132 L 136 Potassium 4.2 3.9 Chloride 103 109 H Carbon Dioxide 21 L 21 L BUN 23 18 Creatinine 1.67 H 1.23 Glucose 136 H 120 H Calcium 8.7 9.1 Cardiac Enzymes 03/31/18 03/31/18 04/01/18 Range/Units 14:26 20:49 04:42 Troponin I < 0.03 < 0.03 < 0.03 (< 0.04) ng/mL Liver Function 03/31/18 Range/Units 14:26 Total Bilirubin 0.6 (0.3-1.0) mg/dL Direct Bilirubin 0.1 (0.0-0.2) mg/dL AST 11 L (13-39) Units/L ALT 8 (7-52) Units/L Alkaline Phosphatase 85 (34-104) Units/L Albumin 3.7 (3.5-5.7) g/dL Urine 03/31/18 Range/Units 14:46 Urine Color Yellow (Yellow) Urine Clarity Clear (Clear) Urine pH 6.0 (5.0-8.0) pH Units Ur Specific [place] 1.022 (1.010-1.025) Urine Protein Trace (Neg-Trace) mg/dL Urine Glucose (UA) Normal (Normal) mg/dL - ABG Interpretation ABG results: PT/INR, D-dimer PT 11.5 Seconds (9.4-12.1) 03/31/18 14:26 - Impressions Impressions Chest X-Ray 03/31/18 14:18 IMPRESSION: No acute pulmonary disease. Calcific atherosclerotic disease aorta. D/ / Robin Moncada / Robin Moncada Interpreting Provider: Robin Moncada Head CT 03/31/18 14:18 IMPRESSION: 1. No acute intracranial abnormality. 2. No acute fracture or subluxation of the cervical spine. D/ : / 03/31/2018 16:26:12 Marcos Terry MD / jose angel Interpreting Provider: Marcos Terry MD Cervical Spine CT 03/31/18 14:19 IMPRESSION: 1. No acute intracranial abnormality. 2. No acute fracture or subluxation of the cervical spine. D/ / 03/31/2018 16:26:12 Marcos Terry MD / jose angel Interpreting Provider: Marcos Terry MD Chest CTA 03/31/18 14:19 IMPRESSION: 1. No pulmonary embolism. 2. Calcific atherosclerosis aorta and coronary arteries status post open heart surgery. 3. Small volume bilateral pleural effusion with minimal bibasilar relaxation atelectasis. 4. Rounded soft tissue densities posterior both lower lungs have the appearance of rounded atelectasis but are nonspecific. Additional evaluation with PET-CT follow-up imaging should be considered versus short-term interval CT chest follow-up to ensure stability. ____ Fleischner Society guidelines for follow-up and management of incidentally detected pulmonary nodules: Single Solid Nodule: Nodule size less than 6 mm In a low-risk patient, no routine follow-up. In a high-risk patient, optional CT at 12 months. Nodule size equals 6-8 mm In a low-risk patient, CT at 6-12 months, then consider CT at 18-24 months. In a high-risk patient, CT at 6-12 months, then CT at 18-24 months. Nodule size greater than 8 mm In a low-risk patient, consider CT at 3 months, PET/CT, or tissue sampling. In a high-risk patient, consider CT at 3 months, PET/CT, or tissue sampling. Multiple Solid Nodules: Nodule size less than 6 mm In a low-risk patient, no routine follow-up. In a high-risk patient, optional CT at 12 months. Nodule size equals 6-8 mm In a low-risk patient, CT at 3-6 months, then consider CT at 18-24 months. In a high-risk patient, CT at 3-6 months, then CT at 18-24 months. Nodule size greater than 8 mm In a low-risk patient, CT at 3-6 months, then consider CT at 18-24 months. In a high-risk patient, CT at 3-6 months, then CT at 18-24 months. - Low risk patients include individuals with minimal or absent history of smoking and other known risk factors. - High risk patients include individuals with a history or smoking or known risk factors. Radiology 2017 http://pubs.rsna.org/doi/full/10.1148/radiol.[email or web address] D/ / Robin Moncada / Robin Moncada Interpreting Provider: Robin Moncada Consult Discharge Plan - Plan Referrals: Kolton Stanton Jr, MD [Primary Care Provider] - (1) Syncope Qualifiers: Syncope type: unspecified Qualified Code(s): R55 - Syncope and collapse (2) [id number] kidney injury Qualifiers: Acute renal failure type: unspecified Chronic kidney disease stage: unspecified stage Qualified Code(s): N17.9 - Acute kidney failure, unspecified; N18.9 - Chronic kidney disease, unspecified (5) CAD (coronary artery disease) Qualifiers: Coronary Disease-Associated Artery/Lesion type: bypass graft [place] vs. transplanted heart: [place] heart Associated angina: without angina Qualified Code(s): I25.810 - Atherosclerosis of coronary artery bypass graft(s) without angina pectoris (6) Diabetes Qualifiers: Diabetes mellitus type: type 2 Diabetes mellitus intermediate accountant insulin use: without mcfp use Diabetes mellitus complication status: without complication Qualified Code(s): E11.9 - Type 2 diabetes mellitus without complications (7) HTN (hypertension) Qualifiers: Hypertension type: essential hypertension Qualified Code(s): I10 - Essential (primary) hypertension
[2018-04-01] MEDS: Aspirin Enteric Coated 81 MG Tablet PO SCH (08:55)
[2018-04-01] MEDS: Cholecalciferol (D-3) 1,000 UNIT TABLET PO SCH (08:55)
[2018-04-01] MEDS: Insulin LISPRO 300 UNITS/3 ML VIAL SQ SCH ×4 (08:56→21:17)
[2018-04-01] MEDS: LOTEPREDNOL OP SCH ×2 (08:58→21:16)
[2018-04-01] MEDS: TOBRAMYCIN OP SCH ×2 (08:58→21:16)
--- NOTE | 2018-04-01 12:36 | Event Note ---
Date of Encounter: 04/01/18 Time of Encounter: 12:33 Attempted to see pt. but he was off the floor. Did discuss with his symptoms which seem unlikely to be cardiac. His cardiac w/u had been negative so far. Did recommend implantable loop recorder which could be done as intpt or outpt.
[2018-04-01] MEDS: RHOPRESSA OPTHALMIC OP SCH (21:16)
[2018-04-02 05:32] LABS: Basophils # 0.1 K/mcL (0.0-0.2); Basophils % 0.8 %; Eosinophils # 0.3 K/mcL (0.0-0.6); Eosinophils % 5.1 %; Hematocrit 30.2 % (37.5-50.1); Hemoglobin 10.2 g/dL (12.9-16.9); Lymphocytes # 1.2 K/mcL (0.6-4.6); Lymphocytes % 20.1 %; Mean Corpuscular HGB Conc 33.8 g/dL (31.6-35.5); Mean Corpuscular Hemoglobin 30.7 pg (28.0-33.3); Mean Platelet Volume 9.5 fL (9.4-12.4); Monocytes # 0.6 K/mcL (0.0-1.3); Monocytes % 9.5 %; Neutrophils # 3.8 K/mcL (1.6-8.9); Platelet Count 133 K/mcL (140-400); Red Blood Count 3.32 M/mcL (4.19-5.50); Red Cell Distribution Width 12.9 % (11.5-14.5); Segmented Neutrophils % 63.5 %
[2018-04-02] MEDS: *HR* Heparin 5,000 UNIT/ML VIAL SQ SCH (05:36)
[2018-04-02 05:51] LABS: BUN/Creatinine Ratio 23 (6-26); Blood Urea Nitrogen 27 mg/dL (8-23); Calcium 8.8 mg/dL (8.6-10.3); Carbon Dioxide 20 mEq/L (23-29); Chloride 110 mEq/L (98-107); Glucose 114 mg/dL (70-105); Osmolality,Calculated 290 (280-300); Potassium 3.9 mEq/L (3.5-5.1); Sodium 137 mEq/L (136-145); eGFR For Non-African Americans 58 (> 60)
[2018-04-02] MEDS: Insulin LISPRO 300 UNITS/3 ML VIAL SQ SCH ×4 (07:04→21:00)
--- NOTE | 2018-04-02 07:44 | Internal Med Progress Note ---
<Geraldine Martinez - Last Filed: 04/02/18 13:21> Hospitalist Progress Note - Encounter Date of Encounter: 04/02/18 Time of Encounter: 07:44 - Subjective Interval History: Pt admitted for syncope workup. Pt had no acute events overnight, has not passed out since Monday [employer]. Denies Cp, sob, lightheadedness, pre-syncope, or sy ncope. Family present at bedside. Neurology consulted, cannot find any ischemic or intracranial abnormality that would explain syncope, suggest following cardiology recommendation for loop recorder. Cardiology cannot place loop recorder today, pt seen by Akanksha who states pt can get loop recorder as inpatient or outpatient. Family would prefer inpatient as transportation is an issue. Will ensure that loop recorder can get placed tomorrow or will discharge patient with outpatient appointment. Pt's blood pressure was low, so home meds were being held, BP climbing back up, will restart home losartan. Pt complaining of some fluid retention, will give dose of Lasix. - Exam Vitals: Temp Pulse Resp BP Pulse Ox 97.8 F 78 16 169/77 98 04/02/18 06:33 04/02/18 06:33 04/02/18 06:33 04/02/18 06:33 04/02/18 06:33 Exam: General: A&O x 3. No acute distress. Well developed, well nourished. Head: atraumatic, normocephalic. ENT: No conjunctival injection, no scleral icterus. PERRLA. EOMI. Oropharynx non- erythematous. mucous membranes moist. Neuro: No focal deficits, no speech deficit, no facial droop, mentating well. BUE/BLE Str 5/5. Pulm: Lungs CTAB A/P. No wheezes, rales, ronchi. Cardio: RRR no m/r/g. Chest not tender to palpation. Several small well-healing scabs present on chest. Abd: Soft, non-distended. Normoactive bowel sounds. Non-tender to palpation. No guarding. Non rigid. Extremities: Radial pulses 2+ rhett, Some mild swelling of UE noted, and mild- moderate swelling of LE L>R noted. Skin: warm, dry, intact. Psych: Appropriate mood and affect. Answers questions appropriately. Cooperative with exam. - Assessment and Plan (1) Syncope and collapse Current Visit: Yes Status: Acute Assessment and Plan: Hx of syncopal episode in past, unknown etiology -CXR neg -C spine CT neg for acute findings -CTA chest no PE, sm bl pleural effusions -CT head neg acute findings -echo 02/2018 ef 60%, mild diastolic dysfunction, mild TR -CUS 02/2018 without significant atherosclerosis - brain MRI 04/01 showed no acute intracranial ischemia, edema, or hemorrhage, no arterial stenosis in in[place] of kyle, with 50% steosis of prox R ICA - venous duplex of LE demonstrated normal superficial and deep exam - limited echo showed LVEF 60%, normal RV structure & function, normally sized aortic root, asymmetric moderate basal septal hypertrophy -tele, trend trops neg, ekg without acute ischemic changes, orthostats neg, monitor bp trend -seizure precautions, neuro checks,nihs scales, swallow screen -neuro following- unlikley seizure -will restart losartan and monitor BP, give dose of lasix today 40mg -cont asa, not on statin given age, check a1c-6.1, tsh and lipid panel unremarkable -uds neg, etoh neg - cardiology following, recommends placement of loop recorder. Will try to get placement during this inpatient stay. (2) Diabetes Current Visit: No Status: Chronic Assessment and Plan: - pt on low dose correction schedule with hypoglycemia protocol - hold home metformin (3) HTN (hypertension) Current Visit: No Status: Chronic Assessment and Plan: Pt BP now 160s/70s - will restart home losartan 100mg PO daily - will give dose of Lasix 40mg today and monitor I&O and swelling - continue to monitor (4) CAD (coronary artery disease) Current Visit: No Status: Chronic Assessment and Plan: Hx of double CABG - continue aspirin, hold BB, restart losartan, give dose of lasix - troponin negative, EKG without acute ischemic changes - cardiology consulted as above - echo as above (5) Xxgmy-rt-sxugrew kidney injury Current Visit: Yes Status: Resolved Assessment and Plan: baseline creatinine 1.3, 1.67 at admission, now 1.2 - continue to monitor, renally dose meds as necessary, avoid nephrotoxic agents (6) Acute on chronic anemia Current Visit: Yes Status: Acute Assessment and Plan: Hg 11.1 at admission, now 10.2. - unknown etiology, likely related to kidney disease - INR normal, platelets down to 133 today - pt denies dark/tarry stools - continue to monitor, monitor for bleeding (7) Rounded radiologic density Current Visit: Yes Status: Acute Assessment and Plan: CTA chest with incidental finding of bl LL rounded soft tissue densities that appear to be rounded atelectasis. Left 16x23 mm and right [id number]. given autumn monique rec is for CT in 3-6 months or outpt PET-CT DVT Prophylaxis: hep sq - Time Spent with Patient Total time spent is greater than 50% in coordination of care (as documented) at patient's floor/unit and/or counseling patient: less than 15 minutes Plan of Care Discussed with: patient Internal Medicine: Result - Labs CBC & Chem 7: 04/02/18 04:34 04/02/18 04:34 Labs: Short CBC 04/02/18 Range/Units 04:34 WBC 5.9 (4.3-11.1) K/mcL Hgb 10.2 L (12.9-16.9) g/dL Hct 30.2 L (37.5-50.1) % Plt Count 133 L (140-400) K/mcL Neutrophils # 3.8 (1.6-8.9) K/mcL BMP 04/02/18 04:34 Sodium 137 Potassium 3.9 Chloride 110 H Carbon Dioxide 20 L BUN 27 H Creatinine 1.20 Glucose 114 H Calcium 8.8 - ABG Interpretation ABG results: PT/INR, D-dimer PT 11.5 Seconds (9.4-12.1) 03/31/18 14:26 - Impressions Impressions Head MRA 04/01/18 08:21 IMPRESSION: 1. No evidence of acute intracranial ischemia, edema, or hemorrhage. 2. No arterial stenosis at levels [id number]. 3. Approximately 50% stenosis involving proximal right internal carotid artery. D/ / Souleymane Hunter / Souleymane Hunter Interpreting Provider: Souleymane Hunter Neck MRA 04/01/18 08:21 IMPRESSION: 1. No evidence of acute intracranial ischemia, edema, or hemorrhage. 2. No arterial stenosis at levels [id number]. 3. Approximately 50% stenosis involving proximal right internal carotid artery. D/ / Souleymane Hunter / Souleymane Hunter Interpreting Provider: Souleymane Hunter Brain MRI 04/01/18 11:06 IMPRESSION: 1. No evidence of acute intracranial ischemia, edema, or hemorrhage. 2. No arterial stenosis at levels [id number]. 3. Approximately 50% stenosis involving proximal right internal carotid artery. D/ / Souleymane Hunter / Souleymane Hunter Interpreting Provider: Souleymane Hunter Consult Discharge Plan - Plan Referrals: Kolton Stanton Jr, MD [Primary Care Provider] - <Doreen Williamson - Last Filed: 04/02/18 16:04> Hospitalist Progress Note - Exam Vitals: Temp Pulse Resp BP Pulse Ox 97.9 F 91 14 157/77 98 04/02/18 15:19 04/02/18 15:19 04/02/18 15:19 04/02/18 15:19 04/02/18 15:19 - Assessment and Plan (1) Syncope Current Visit: Yes Status: Acute (2) Zlyvl-oa-ebvtxmg kidney injury Current Visit: Yes Status: Resolved (3) Acute on chronic anemia Current Visit: Yes Status: Acute (4) Hyponatremia Current Visit: No Status: Chronic (5) CAD (coronary artery disease) Current Visit: No Status: Chronic (6) Diabetes Current Visit: No Status: Chronic (7) HTN (hypertension) Current Visit: No Status: Chronic (8) Rounded radiologic density Current Visit: Yes Status: Acute - Time Spent with Patient Total time spent is greater than 50% in coordination of care (as documented) at patient's floor/unit and/or counseling patient: Internal Medicine: Result - Labs CBC & Chem 7: 04/02/18 04:34 04/02/18 04:34 Labs: Short CBC 04/02/18 Range/Units 04:34 WBC 5.9 (4.3-11.1) K/mcL Hgb 10.2 L (12.9-16.9) g/dL Hct 30.2 L (37.5-50.1) % Plt Count 133 L (140-400) K/mcL Neutrophils # 3.8 (1.6-8.9) K/mcL BMP 04/02/18 04:34 Sodium 137 Potassium 3.9 Chloride 110 H Carbon Dioxide 20 L BUN 27 H Creatinine 1.20 Glucose 114 H Calcium 8.8 - ABG Interpretation ABG results: PT/INR, D-dimer PT 11.5 Seconds (9.4-12.1) 03/31/18 14:26 - Impressions Impressions Head CT 03/31/18 14:18 IMPRESSION: 1. No acute intracranial abnormality. 2. No acute fracture or subluxation of the cervical spine. D/ / 03/31/2018 16:26:12 Marcos Terry MD / ta alba Interpreting Provider: Marcos Terry MD Cervical Spine CT 03/31/18 14:19 IMPRESSION: 1. No acute intracranial abnormality. 2. No acute fracture or subluxation of the cervical spine. D/ / 03/31/2018 16:26:12 Marcos Terry MD / eartari Interpreting Provider: Marcos Terry MD - Attending Attestation I examined this patient and my medical decision-making was reviewed with the Resident Physician Dr Martinez. I agree with the documented findings, disposition and treatment plan as described except to the extent set forth below/addl details below. Mr James presented with syncopal episode.neuro work up negative. Cards eval and do not suspect cardiac etiology but will place loop recorder on monday, then med stable for dc to home. awake, family at bedside. no presyncope or syncope. Denies any cp, pressure, palpitations, sob. No weakness, parasthesias or confusion. Prefer inpt loop placement due to transportation issues. cards aware. He takes lasix prn at home and is noting watch to be a bit tighter. requesting dose of the med. gen- alert, awake,appears stated age eyes- pupils equal round cv- reg rate and rhythm, normal s1,s2, no murmurs appreciated, trace pitting le edema lungs- ctabl, no wheezing, rhonchi or crackles neuro- AAOx3, CN grossly intact, no focal deficits syncope, uk etiology hx of same in past -neuro imaging neg, cardiac work up neg -neuro following- unlikley seizure and rec for cardiac work up, cleared for dc from neuro prospective - cardiology following, recommends placement of loop recorder. plan to place in am -cont asa, not on statin given age -pt and family instructed he should not drive until seen in follow up by cardiology post loop recorder and by PCP and verbalized understanding HTN home meds initially helpd due to pt report of low normal bps at home and permissive htn in rule out cva setting -now elevating -begin arb, cont to monitor bps and add back home meds as appropriate -he may have a one time home lasix 40 mg tab CAD,stable Hx CABG - continue aspirin, hold BB, restart losartan - troponin negative, EKG without acute ischemic changes - cardiology consulted as above - echo obtained this admit without changes HA on CKD baseline creatinine 1.3, 1.67 at admission, improved to baseline - continue to monitor, renally dose meds as necessary, avoid nephrotoxic agents to be of ability--resuming arb and lasix as above Acute on Chronci Anemia Hg 11.1 at admission, now 10.2. - unknown etiology, likely related to kidney disease - INR normal, platelets down to 133 today-stop hep sq for vte ppx - pt denies dark/tarry stools, no evidence of bleeding here - continue to monitor, monitor for bleeding, needs to fu with pcp outpt CTA chest with incidental finding of bl LL rounded soft tissue densities that appear to be rounded atelectasis. Left 16x23 mm and right [id number]. given autumn monique rec is for CT in 3-6 months or outpt PET-CT pt is aware of this and will need to fu with pcp on dc <MichelleGeraldine L - Last Filed: 04/02/18 13:21> (2) Diabetes Qualifiers: Diabetes mellitus type: type 2 Diabetes mellitus terminal carman insulin use: without terminal carman use Diabetes mellitus complication status: without complication Qualified Code(s): E11.9 - Type 2 diabetes mellitus without complications (3) HTN (hypertension) Qualifiers: Hypertension type: essential hypertension Qualified Code(s): I10 - Essential (primary) hypertension (4) CAD (coronary artery disease) Qualifiers: Coronary Disease-Associated Artery/Lesion type: bypass graft [place] vs. transplanted heart: [place] heart Associated angina: without angina Qualified Code(s): I25.810 - Atherosclerosis of coronary artery bypass graft(s) without angina pectoris (5) Usmrh-fm-ebkjelm kidney injury Qualifiers: Acute renal failure type: unspecified Chronic kidney disease stage: unspecified stage Qualified Code(s): N17.9 - Acute kidney failure, unspecified; N18.9 - Chronic kidney disease, unspecified <Doreen Williamson - Last Filed: 04/02/18 16:04> (1) Syncope Qualifiers: Syncope type: unspecified Qualified Code(s): R55 - Syncope and collapse (2) Srslv-ix-kvhgiwc kidney injury Qualifiers: Acute renal failure type: unspecified Chronic kidney disease stage: unspecified stage Qualified Code(s): N17.9 - Acute kidney failure, unspecified; N18.9 - Chronic kidney disease, unspecified (5) CAD (coronary artery disease) Qualifiers: Coronary Disease-Associated Artery/Lesion type: bypass graft [place] vs. transplanted heart: [place] heart Associated angina: without angina Qualified Code(s): I25.810 - Atherosclerosis of coronary artery bypass graft(s) without angina pectoris (6) Diabetes Qualifiers: Diabetes mellitus type: type 2 Diabetes mellitus senior living insulin use: without senior living use Diabetes mellitus complication status: without complication Qualified Code(s): E11.9 - Type 2 diabetes mellitus without complications (7) HTN (hypertension) Qualifiers: Hypertension type: essential hypertension Qualified Code(s): I10 - Essential (primary) hypertension
[2018-04-02] MEDS: Cholecalciferol (D-3) 1,000 UNIT TABLET PO SCH (08:34)
[2018-04-02] MEDS: Aspirin Enteric Coated 81 MG Tablet PO SCH (08:34)
[2018-04-02] MEDS: TOBRAMYCIN OP SCH ×2 (08:35→21:04)
[2018-04-02] MEDS: LOTEPREDNOL OP SCH ×2 (08:35→21:04)
--- NOTE | 2018-04-02 09:46 | Cardiology Consult Note ---
<Tacho Pulido T - Last Filed: 04/03/18 07:59> Date of Encounter: 04/03/18 Time of Encounter: 09:45 Assessment and Plan (1) Syncope Status: Acute Plan for loop recorder placement earliest Monday. Patient wishes to stay at hospital until procedure. Spoke with hospitalist and they are in agreement. Qualifiers: Syncope type: unspecified Qualified Code(s): R55 - Syncope and collapse Discussion w patient/family: The assessment and plan as outlined above was discussed with the patient and/or family members who expressed understanding and agreement. All questions were answered. Thank you for involving us in the care of your patient. Please call with any questions. History of Present Illness Consult date: 04/02/18 Consult reason: Syncope Chief complaint: Syncope History of present illness: Mr. James is a 83 year old male presenting with syncopal with a history significant for coronary artery disease, MS and CABG [address] Carr, hypertension, diabetes, hyperlipidemia. Patient was working outside with family and sat down on swing. He experienced loss of consciousness after sitting down and was caught by family member. Patient reports prodromal symptoms of feeling faint, complete loss of consciousness, and waking up in ambulance. Per family patient did not have tonic/clonic movements, biting tongue, or incontinence during the episode. Family states patient had blue lips, was breathing, and fixed eyes. Patient states that this has happened several times before, last episode was a few months ago and he was worked up for dehydration at [facility] and d/c. BP at time of episode was 100/60 which is unusual for patient since he has HTN. Patient states he has had a CABG [address] Carr. Has SOB with exertion. Denies CP with rest, dizziness with standing, chest palpitations, recent illness symptoms including fever, cough, N/V, changes in bowel movements, changes in urination. Patient on atenolol 100 QD, furosemide 40 QD, and amlodipine 5 QD for hypertension. Past Med Surg Social Fam HX - Past Medical History Medical history: cancer, coronary artery disease, hyperlipidemia, hypertension, myocardial infarction, other Additional medical history: Colon CA Psychiatric history: no psych history - Past Surgical History Surgical History: cholecystectomy, coronary bypass (CABG) Additional surgical history: colon CA, hernia repair, cornea transplant - Social History Smoking Status: Never smoker Smokeless Tobacco Status: No Alcohol use: none Drug use: none - Family History Father Hx Family Cardiac Disorders: Yes (CHF) Mother Hx Family Cardiac Disorders: Yes (MS) Medications and Allergies RX: Aspirin [Lo-Dose Aspirin EC] 81 mg PO DAILY 03/31/18 [History] RX: Atenolol 100 mg PO DAILY 03/31/18 [History] RX: Calcium Carbonate/Vitamin D3 [Calcium 600 + Vit D Tablet] 1 tab PO DAILY 03/31/18 [History] RX: Latanoprost [Xalatan] 1 drop BOTH EYES HS 03/31/18 [History] RX: Losartan Potassium [Cozaar] 100 mg PO DAILY 03/31/18 [History] RX: Metformin HCl [Metformin HCl ER] 500 mg PO QPM 03/31/18 [History] RX: Netarsudil Mesylate [Rhopressa] 1 drop BOTH EYES HS 03/31/18 [History] RX: Tobramycin/Lotepred Etab [Zylet Eye Drops] 1 drop RIGHT EYE BID 03/31/18 [History] RX: amLODIPine [Norvasc] 5 mg PO DAILY 03/31/18 [History] RX: Furosemide [Lasix] 20 mg PO DAILY PRN #0 04/03/18 [Rx] Allergy/AdvReac Type Severity Reaction Status Date / Time Penicillins Allergy Mild Hives Verified 03/31/18 16:56 All Systems Review: The remainder of the systems were reviewed and are negative - Constitutional Constitutional: no anorexia, no chills, no fatigue, no fever(s), no night sweats - Cardiovascular Cardiovascular: as per HPI - Respiratory Respiratory: no cough, no dyspnea, no wheezing - Gastrointestinal Gastrointestinal: no abdominal pain - Genitourinary Genitourinary: no dysuria, no hematuria - Neurological Neurological: no dizziness Physical Examination Vital Signs, Last 4 Hours Temp Pulse Resp BP Pulse Ox 04/02/18 06:33 97.8 F 78 16 169/77 98 General: Conversant, No Apparent Distress HEENT: Atraumatic Cardiac: Reg Rate and Rhythm, Normal S1 and S2, No Murmur Lungs: Normal Breath Sounds, No Wheeze, Rales, Rhonchi Neuro: Alert and responsive, No focal deficits noted Skin: No rashes noted on visualized skin Musculoskeletal: No Chest Wall Tenderness Extremities: No Clubbing, No Cyanosis Results 04/03/18 04:12 04/03/18 04:12 Lab Results 04/02/18 04/02/18 04:34 04:34 WBC 5.9 Hgb 10.2 L Hct 30.2 L Plt Count 133 L Sodium 137 Potassium 3.9 Chloride 110 H Carbon Dioxide 20 L BUN 27 H Creatinine 1.20 Glucose 114 H Calcium 8.8 - Imaging and Cardiology Chest Xray: report reviewed (no cardiac pathology noted) Echo: report reviewed (EF 60% with no wall movement abnormalities) Consult Discharge Plan - Plan Instructions: Syncope (DC), Anemia (GEN) Additional Instructions: ACTIVITY: Moderate activity for the next 7 days. No lifting more than 5 pounds (gallon of milk) for 1 week. BATHING /SHOWERING: Do not remove the large bandage over the site for 2 days. Do not allow the device to get wet for 7-10 days. You may bathe/shower, but do not use soap and water on the site. When bathing, keep the site dry by covering with Saran wrap or a towel. WOUND CARE: The white steri-strips will start to peel away and come off after 14 days, or your doctor will remove them after [address] into or on top of the incision. Do not use cotton swabs. Do not use any antibiotic ointment or Vitamin E on the site. REMINDERS: Notify security personnel at the airport that you have a device before you go through airport security screening. When at places with security monitors, such as a grocery store, do not linger near these monitors. It is fine to walk past them in a normal manner. Refer to your owners manual for more specific directions. CARRY YOUR IDENTIFICATION CARD WITH YOU AT ALL TIMES Return to work as instructed per physician Resume driving as instructed per physician Keep all scheduled follow up appointments Resume medications as instructed Contact [facility] ( ) if: You develop excessive bleeding from insertion or wound site not controlled by applying pressure You develop a fever greater than 101 degrees Fahrenheit Your incision becomes reddened at or around the site Your incision develops yellowish or greenish drainage or development of white pimple-like bumps You experience excessive pain You experience muscle switching If you experience chest pain, shortness of breath, dizziness, or extreme tiredness, stop the activity and rest. Please notify [facility] office if you experience any of these symptoms and they are not relieved by rest please call 911! Follow up with PCP to follow CT of chest (need repeat in 3 months) Referrals: [facility] [Provider Group] - 04/12/18 9:00 am Kolton Stanton Jr, MD [Primary Care Provider] - 04/09/18 11:00 am <Cristobal Vale - Last Filed: 04/03/18 15:44> - Attending Attestation I have personally performed a face to face evaluation on this patient. I have reviewed and agree with the care plan. History and Exam by me shows: 83-year-old male presents to the ED for reason of presyncope possible syncope chest occurring in the past. Patient noted to have anemia and dehydration with presenting creatinine of 1.67 currently improving to baseline. Patient was seen recently by EP and a loop recorder was recommended. Waiting loop recorder insertion at this time. Patient will follow-up with EP as an outpatient Assessment and Plan Discussion w patient/family: The assessment and plan as outlined above was discussed with the patient and/or family members who expressed understanding and agreement. All questions were answered. Thank you for involving us in the care of your patient. Please call with any questions. History of Present Illness History of present illness: Mr. James is a 83 year old male All Systems Review: The remainder of the systems were reviewed and are negative Physical Examination Vital Signs, Last 4 Hours BP 04/03/18 11:47 170/79 Results 04/03/18 04:12 04/03/18 04:12 Lab Results 04/03/18 04/03/18 04/03/18 04:12 04:12 04:12 WBC 6.4 Hgb 11.0 L Hct 32.1 L Plt Count 149 INR 1.0 APTT 30.7 Sodium 136 Potassium 3.4 L Chloride 105 Carbon Dioxide 23 BUN 25 H Creatinine 1.04 Glucose 104 Calcium 9.0
[2018-04-02 10:53] LABS: Estimated Average Glucose 128 mg/dl; Hemoglobin A1C 6.1 %
--- NOTE | 2018-04-02 12:32 | Neurology Progress Note ---
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 Suggest getting a cardiac workup at the same time get an MRI of the brain to exclude any possibility of the stroke or also for any metastasis as he is a history of colon cancer in the past MRI of the brain and MRA of the head and neck did not show any acute abnormality and no critical intra-or extracranial stenosis Suggest checking orthostatic hypotension Suggest increasing fluid intake Already evaluated by cardiology follow the recommendations Stable from neurology standpoint okay to discharge Subjective Interval history: Patient seems to be doing well did not have any other significant issues back to his baseline able to ambulate without much help occasional dizziness but not much otherwise no focal motor weakness Objective - Constitutional Vitals: Temp Pulse Resp BP Pulse Ox 98.2 F 89 17 168/73 98 04/02/18 11:35 04/02/18 11:35 04/02/18 11:35 04/02/18 11:35 04/02/18 11:35 Results - Laboratory Findings CBC and BMP: 04/02/18 04:34 04/02/18 04:34 Abnormal lab findings: Abnormal lab results RBC 3.32 M/mcL (4.19-5.50) L 04/02/18 04:34 Hgb 10.2 g/dL (12.9-16.9) L 04/02/18 04:34 Hct 30.2 % (37.5-50.1) L 04/02/18 04:34 Plt Count 133 K/mcL (140-400) L 04/02/18 04:34 Chloride 110 mEq/L (98-107) H 04/02/18 04:34 Carbon Dioxide 20 mEq/L (23-29) L 04/02/18 04:34 BUN 27 mg/dL (8-23) H 04/02/18 04:34 Est GFR (Non-Af Amer) 58 (> 60) L 04/02/18 04:34 Glucose 114 mg/dL (70-105) H 04/02/18 04:34 POC Glucose 121 mg/dL (70-99) H 04/01/18 21:04 Hemoglobin A1c 6.1 % (-5.6) H 04/01/18 04:42 AST 11 Units/L (13-39) L 03/31/18 14:26 Serum Total Protein 6.1 g/dL (6.4-8.9) L 03/31/18 14:26 Urine Ketones Trace mg/dL (Negative) H 03/31/18 14:46 Urine Microscopic RBC 5-15 per hpf (0-3) H 03/31/18 14:46 Urine Microscopic WBC 5-15 per hpf (0-3) H 03/31/18 14:46 Ur Squamous Epith Cells Many per lpf (None-Few) H 03/31/18 14:46 Hyaline Casts Many per lpf (None-Few) H 03/31/18 14:46 - Diagnostic Findings Additional findings: MRA of the brain: 1. No evidence of acute intracranial ischemia, edema, or hemorrhage. 2. No arterial stenosis at levels [id number]. 3. Approximately 50% stenosis involving proximal right internal carotid artery. Neck MRA IMPRESSION: 1. No evidence of acute intracranial ischemia, edema, or hemorrhage. 2. No arterial stenosis at levels [id number]. 3. Approximately 50% stenosis involving proximal right internal carotid artery. Brain MRI IMPRESSION: 1. No evidence of acute intracranial ischemia, edema, or hemorrhage. 2. No arterial stenosis at levels [id number]. 3. Approximately 50% stenosis involving proximal right internal carotid artery. Consult Discharge Plan - Plan Referrals: Kolton Stanton Jr, MD [Primary Care Provider] -
[2018-04-02] MEDS ORDERED: Furosemide 40 MG TABLET PO SCH (13:45)
[2018-04-02] MEDS: RHOPRESSA OPTHALMIC OP SCH (21:04)
[2018-04-03 05:14] LABS: Basophils # 0.1 K/mcL (0.0-0.2); Basophils % 1.2 %; Eosinophils # 0.4 K/mcL (0.0-0.6); Eosinophils % 6.1 %; Hematocrit 32.1 % (37.5-50.1); Immature Granulocytes % 1.2 % (0-4); Lymphocytes # 1.1 K/mcL (0.6-4.6); Lymphocytes % 17.6 %; Mean Corpuscular HGB Conc 34.3 g/dL (31.6-35.5); Mean Corpuscular Hemoglobin 30.6 pg (28.0-33.3); Mean Corpuscular Volume 89.2 fL (83.0-100.0); Mean Platelet Volume 9.4 fL (9.4-12.4); Monocytes # 0.7 K/mcL (0.0-1.3); Monocytes % 10.3 %; Neutrophils # 4.1 K/mcL (1.6-8.9); Platelet Count 149 K/mcL (140-400); Red Cell Distribution Width 12.8 % (11.5-14.5); Segmented Neutrophils % 63.6 %
[2018-04-03 05:22] LABS: Prothrombin Time 11.8 Seconds (9.4-12.1)
[2018-04-03 05:25] LABS: Activated Partial Thrombo Time 30.7 Seconds (26.0-36.0)
[2018-04-03 05:33] LABS: BUN/Creatinine Ratio 24 (6-26); Blood Urea Nitrogen 25 mg/dL (8-23); Carbon Dioxide 23 mEq/L (23-29); Chloride 105 mEq/L (98-107); Glucose 104 mg/dL (70-105); Osmolality,Calculated 287 (280-300); Potassium 3.4 mEq/L (3.5-5.1); Sodium 136 mEq/L (136-145); eGFR For Non-African Americans > 60 (> 60)
[2018-04-03] MEDS: Insulin LISPRO 300 UNITS/3 ML VIAL SQ SCH ×2 (07:46→12:19)
[2018-04-03] MEDS: LOTEPREDNOL OP SCH (08:43)
[2018-04-03] MEDS: TOBRAMYCIN OP SCH (08:43)
[2018-04-03 11:50] VITALS: BP 170/79
[2018-04-03] MEDS: Cholecalciferol (D-3) 1,000 UNIT TABLET PO SCH (12:16)
[2018-04-03] MEDS: Aspirin Enteric Coated 81 MG Tablet PO SCH (12:17)
--- NOTE | 2018-04-03 12:17 | Event Note ---
Date of Encounter: 04/03/18 Time of Encounter: 12:08 - Cardiology Event Note Patient is s/p LOOP recorder today for recurrent syncope. Please follow restrictions as below in regards to Loop recorder. Cardiology will sign off and will follow in outpatient setting. Follow up set. ACTIVITY: Moderate activity for the next 7 days. No lifting more than 5 pounds (gallon of milk) for 1 week. BATHING /SHOWERING: Do not remove the large bandage over the site for 2 days. Do not allow the device to get wet for 7-10 days. You may bathe/shower, but do not use soap and water on the site. When bathing, keep the site dry by covering with Saran wrap or a towel. WOUND CARE: The white steri-strips will start to peel away and come off after 14 days, or your doctor will remove them after [address] anything into or on top of the incision. Do not use cotton swabs. Do not use any antibiotic ointment or Vitamin E on the site. REMINDERS: Notify security personnel at the airport that you have a device before you go through airport security screening. When at places with security monitors, such as a grocery store, do not linger near these monitors. It is fine to walk past them in a normal manner. Refer to your owners manual for more specific directions. CARRY YOUR IDENTIFICATION CARD WITH YOU AT ALL TIMES Return to work as instructed per physician Resume driving as instructed per physician Keep all scheduled follow up appointments Resume medications as instructed Contact [facility] ( ) if: You develop excessive bleeding from insertion or wound site not controlled by applying pressure You develop a fever greater than 101 degrees Fahrenheit Your incision becomes reddened at or around the site Your incision develops yellowish or greenish drainage or development of white pimple-like bumps You experience excessive pain You experience muscle switching If you experience chest pain, shortness of breath, dizziness, or extreme tiredness, stop the activity and rest. Please notify [facility] office if you experience any of these symptoms and they are not relieved by rest please call 911!
--- NOTE | 2018-04-03 12:57 | Discharge Summary ---
- NOTES TO OUTPATIENT PROVIDER Notes to Outpatient Provider: Presented with syncopal episode. Neurologic work up negative. Had loop recorder placed. Orders not resulted at time of discharge: Pending orders 04/03/18 10:12 CL Insert Loop Recorder [CL] Routine Date of Encounter: 04/03/18 Time of Encounter: 12:10 - Discharge Diagnosis (1) Paroxysmal cardiac arrhythmia Priority: Primary Status: Suspected Assessment and Plan: Pt with syncope with concern for cardiac arrthymia. Loop recorder placed. (2) Dehydration Priority: Secondary Status: Resolved (3) Diabetes Priority: Secondary Status: Chronic Qualifiers: Diabetes mellitus type: type 2 Diabetes mellitus buttermaker continuous churn insulin use: without buttermaker continuous churn use Diabetes mellitus complication status: without complication Qualified Code(s): E11.9 - Type 2 diabetes mellitus without complications (4) HTN (hypertension) Priority: Secondary Status: Chronic Qualifiers: Hypertension type: essential hypertension Qualified Code(s): I10 - Essential (primary) hypertension (5) CAD (coronary artery disease) Priority: Secondary Status: Chronic Qualifiers: Coronary Disease-Associated Artery/Lesion type: bypass graft [place] vs. transplanted heart: [place] heart Associated angina: without angina Qualified Code(s): I25.810 - Atherosclerosis of coronary artery bypass graft(s) without angina pectoris (6) Hyponatremia Priority: Secondary Status: Resolved (7) Syncope Priority: Secondary Status: Resolved Qualifiers: Syncope type: unspecified Qualified Code(s): R55 - Syncope and collapse (8) Acute on chronic anemia Priority: Secondary Status: Chronic (9) Rounded radiologic density Priority: Secondary Status: Chronic Hospital course: Mr. James is a 83 year old male with hx of CAD, HTN, DM presented to ED following a syncopal episode. He was admitted for this a month ago and neuro work up negative. He was placed in observation for further evaluation. Mr James was placed in observation. He was seen by neurology and cardiology. Repeat CTs and MRI/MRAs all negative. Echo with no significant change. He had a loop recorder placed today and will follow up in the office. Discharge discussed with: patient, family - Time Spent with Patient Total time spent providing and/or coordinating discharge services: - Discharge Medications Home Medications: Aspirin [Lo-Dose Aspirin EC] 81 mg PO DAILY 03/31/18 [History] Atenolol 100 mg PO DAILY 03/31/18 [History] Calcium Carbonate/Vitamin D3 [Calcium 600 + Vit D Tablet] 1 tab PO DAILY 03/31/18 [History] Latanoprost [Xalatan] 1 drop BOTH EYES HS 03/31/18 [History] Losartan Potassium [Cozaar] 100 mg PO DAILY 03/31/18 [History] Metformin HCl [Metformin HCl ER] 500 mg PO QPM 03/31/18 [History] Netarsudil Mesylate [Rhopressa] 1 drop BOTH EYES HS 03/31/18 [History] Tobramycin/Lotepred Etab [Zylet Eye Drops] 1 drop RIGHT EYE BID 03/31/18 [History] amLODIPine [Norvasc] 5 mg PO DAILY 03/31/18 [History] Furosemide [Lasix] 20 mg PO DAILY PRN #0 04/03/18 [Rx] Allergies/Adverse Reactions: Allergy/AdvReac Type Severity Reaction Status Date / Time Penicillins Allergy Mild Hives Verified 03/31/18 16:56 Date of admission: 03/31/18 17:26 Primary care physician: Kolton Stanton Jr, MD Consults: 03/31/18 17:10 Consult to Neurology [CONS] Stat Consulting Provider: [facility] Reason for Consult: concern for seizure like activity Time Notified: 17:10 Call Completed: Yes 03/31/18 17:36 Consult to Physical Therapy [CONS] Routine Comment: Evaluate, develop and implement POC Reason for Consult: syncopal episode Does patient have active BEDREST order?: No Is patient medically & hemodynamically stable?: Yes Patient assessed for mobility or mobilized this visit?: Yes Consult to [employer] [CONS] Routine Reason for SW Consult: dispo planning 04/01/18 08:25 Consult to Cardiology [CONS] Routine Comment: Consulting Provider: [facility] Reason for Consult: syncopal episodes, neurology work up negative and rec work up for cardiac etiology, hx cad s/p cabg Time Notified: 08:25 Call Completed: Yes Discharging clinician: Ye Sanchez Anticipated date of discharge: 04/03/18 - Constitutional Vitals: Temp Pulse Resp BP Pulse Ox 97.7 F 101 15 170/79 98 04/03/18 06:15 04/03/18 06:15 04/03/18 06:15 04/03/18 11:47 04/03/18 06:15 General appearance: Present: A&O X 3, pleasant Exam: See below - Head Head exam: Present: normocephalic - Eye Eye exam: Present: EOMI, conjuntiva pink - ENT ENT exam: Present: mucous membranes moist - Respiratory Respiratory exam: Present: CTAB - Cardiovascular Cardiovascular exam: Present: RRR. Absent: tachycardia - GI/Abdominal GI/Abdominal exam: Present: soft. Absent: tenderness - Extremities Exam Extremities exam: Present: warm. Absent: tenderness - Neurological Exam Neurological exam: Present: alert, oriented X3 - Skin Skin exam: Present: dry, warm. Absent: rash - Patient Status Disposition: Home, Self-Care Condition: Good Functional capacity at discharge: independent ambulation Overall status at discharge: patient is progressing back to baseline - Discharge Instructions Follow Up With: Kolton Stanton Jr, MD [Primary Care Provider] - 04/09/18 11:00 am Forms: ED Satisfaction Letter Additional Instructions: ACTIVITY: Moderate activity for the next 7 days. No lifting more than 5 pounds (gallon of milk) for 1 week. BATHING /SHOWERING: Do not remove the large bandage over the site for 2 days. Do not allow the device to get wet for 7-10 days. You may bathe/shower, but do not use soap and water on the site. When bathing, keep the site dry by covering with Saran wrap or a towel. WOUND CARE: The white steri-strips will start to peel away and come off after 14 days, or your doctor will remove them after [address] anything into or on top of the incision. Do not use cotton swabs. Do not use any antibiotic ointment or Vitamin E on the site. REMINDERS: Notify security personnel at the airport that you have a device before you go through airport security screening. When at places with security monitors, such as a grocery store, do not linger near these monitors. It is fine to walk past them in a normal manner. Refer to your owners manual for more specific directions. CARRY YOUR IDENTIFICATION CARD WITH YOU AT ALL TIMES Return to work as instructed per physician Resume driving as instructed per physician Keep all scheduled follow up appointments Resume medications as instructed Contact [facility] ( ) if: You develop excessive bleeding from insertion or wound site not controlled by applying pressure You develop a fever greater than 101 degrees Fahrenheit Your incision becomes reddened at or around the site Your incision develops yellowish or greenish drainage or development of white pimple-like bumps You experience excessive pain You experience muscle switching If you experience chest pain, shortness of breath, dizziness, or extreme tiredness, stop the activity and rest. Please notify [facility] office if you experience any of these symptoms and they are not relieved by rest please call 911! Follow up with PCP to follow CT of chest (need repeat in 3 months) - Diet and Activity Activity: increase activity as tolerated Diet: advance to your usual diet
--- NOTE | 2018-04-03 17:15 | Electrocardiograph Report ---
[place] [id number] Test Date: 2018-03-31 Pat Name: Rashawn James Department: EXAM3 Room: 3B43 Gender: M [employer]ology [employer] Instructor: : [id number] Requested By: Chris Perales Order Number: [id number] Reading MD: Joey Priest Measurements Intervals [place] Rate: 69 P: 75 DC: 199 QRS: 5 QRSD: 108 T: 52 QT: 400 QTc: 429 Interpretive Statements Sinus rhythm Electronically Signed On 04-03-2018 17:13:19 EDT by Joey Priest
== END 2018-04-03 14:28 | disposition home or self-care (01) ==
LOC: EMEROOARM 14:15 → 3BNU 14:15 → SUATTDRO 17:26 → 3BNU 18:23
PROVIDERS: ADMIT Internal Medicine; ATTEND Internal Medicine

== ENCOUNTER 2018-12-28 19:02 | Inpatient (IN) ==
[2018-12-28] MEDS ORDERED: 0.9 % Sodium Chloride 1,000 ML IVC ONE (19:19)
--- NOTE | 2018-12-28 19:49 | Emergency Department Note ---
Disposition Clinical Impression: Weakness UTI (urinary tract infection) Qualifiers: Urinary tract infection type: urethritis Qualified Code(s): N34.2 - Other urethritis Disposition: Home, Self-Care Condition: Good Time of Disposition: 00:09 Altered Mental Status HPI - General Chief Complaint: ED Altered Mental Status Stated Complaint: altered mental status Time Seen by Provider: 12/28/18 19:19 Source: patient, family Mode of arrival: EMS Limitations: no limitations Nursing Notes Reviewed: Yes Vital Signs Reviewed: Yes - History of Present Illness HPI Narrative: 83 old male presents to the emergency department with generalized weakness. Family states that he does not seem to be his normal self they are worried he may be dehydrated. 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 They said that he seems a little more weak. They said that he fell yesterday did not hit his head was on the ground. They are not sure how long he was on the ground 4. Patient otherwise has no other complaints this time says he has no pain he says feels or more weak/tired than normal. He said more that he is just tired and wants to sleep. He denies chest pain shortness of breath abdominal pain diarrhea constipation nausea or vomiting. There is also been no fevers - Related Data Home Medications Medication Instructions Recorded Confirmed Aspirin [Lo-Dose Aspirin EC] 81 mg PO DAILY 03/31/18 12/28/18 Atenolol 100 mg PO DAILY 03/31/18 12/28/18 Calcium Carbonate/Vitamin D3 1 tab PO DAILY 03/31/18 12/28/18 [Calcium 600 + Vit D Tablet] Losartan Potassium [Cozaar] 100 mg PO DAILY 03/31/18 12/28/18 Metformin HCl [Metformin ER 500 mg PO QPM 03/31/18 12/28/18 Gastric] Lum[place] 1 drop BOTH EYES HS 09/15/18 12/28/18 Omeprazole 20 mg PO DAILY 09/15/18 12/28/18 Tamsulosin 0.4 mg PO DAILY 09/15/18 12/28/18 Previous Rx's Medication Instructions Recorded Furosemide [Lasix] 20 mg PO DAILY PRN #0 04/03/18 Allergies Allergy/AdvReac Type Severity Reaction Status Date / Time Penicillins Allergy Mild Hives Verified 12/28/18 23:37 All systems ED: reviewed and negative except as stated. Review of Systems: As Per HPI Past Medical History - Past Medical History Attestation: Yes The following information was validated with the patient. Source: patient Medical history: Reports: cancer, coronary artery disease, hyperlipidemia, hypertension, myocardial infarction, other Surgical history: Reports: cholecystectomy, coronary bypass (CABG) Psychiatric history: Reports: no psych history - Social History Smoking Status: Never smoker Smokeless Tobacco Status: No Alcohol use: Reports: none Drug use: Reports: none Physical Exam - General General appearance: alert, in no apparent distress - Head Head exam: atraumatic, normocephalic, normal inspection - Eye Eye exam: Present: normal appearance, PERRL, EOMI - ENT ENT exam: normal exam, normal oropharynx, mucous membranes moist - Neck Neck exam: Present: normal inspection, full ROM, trachea midline - Chest Chest inspection: Present: normal inspection, symmetric chest wall rise - Respiratory Respiratory exam: Present: normal lung sounds bilaterally - Cardiovascular Cardiovascular exam: Present: regular rate, normal rhythm, normal heart sounds - Abdominal Exam Abdominal exam: Present: soft, Non-Tender, normal bowel sounds. Absent: tenderness, distention, guarding, rebound, rigidity - Extremities Exam Extremities exam: Present: normal inspection, full ROM. Absent: tenderness, pedal edema - Back Exam Back exam: Present: normal inspection, full ROM. Absent: tenderness, CVA tenderness (R), CVA tenderness (L) - Neurological Exam Neurological exam: Present: alert, oriented X3 - Skin Skin exam: Present: warm, dry, intact, normal color Course Course Narrative: We have basic labs including CBC BMP troponin will also get a head CT. We will also get CK due to the fall. Patient received 1 L of IV fluids we will also urinalysis. Patient okay with this plan. Disposition is pending results Vital Signs Temperature 99.0 F 12/28/18 19:08 Pulse Rate 95 12/28/18 19:08 Respiratory Rate 18 12/28/18 19:08 Blood Pressure 121/57 12/28/18 19:08 O2 Sat by Pulse Oximetry 96 12/28/18 19:08 Temperature 99.0 F 12/28/18 19:08 Pulse Rate 85 12/28/18 20:21 Respiratory Rate 20 12/28/18 23:41 Blood Pressure 142/70 12/28/18 23:41 O2 Sat by Pulse Oximetry 97 12/28/18 23:39 Oxygen Delivery Oxygen Delivery Room Air Altered Mental Status - MDM Narrative Medical decision making narrative: Labs came back showing a urinary tract infection that was nitrite positive. He has had generalized weakness. He did have a hemoglobin drop of 8.7-8.0. He has had generalized weakness but says been going on more acutely not over the last 2 months which is between what the 2 levels are. Think this is chronic anemia to him. We did get Hemoccult which is still pending at this time. Patient was shown to have the urine or tract infection we did start him on 1 dose of ceftriaxone here in the emergency department. I did offer family to go home or come to the hospital for further evaluation they preferred to stay in the hospital as they felt like he get better care and be sure not missing anything. Patient is admitted in stable condition. I spoke with Dr. Lockhart who agreed to admit the patient to their service. Patient admitted in stable condition Chest X-Ray 12/28/18 19:19 IMPRESSION: No acute cardiopulmonary abnormality. D/ / Lisa Solano MD / Lisa Solano MD Interpreting Provider: Lisa Solano MD Head CT 12/28/18 19:19 IMPRESSION: No acute intracranial abnormality. D/ / Celso Gibbs MD / Celso Gibbs MD Interpreting Provider: Celso Gibbs MD - Medical Records Medical records reviewed: Yes I reviewed the patient's medical records. - Lab Data Lab results reviewed: Yes I reviewed the patient's lab results. Result diagrams: 12/28/18 19:38 12/28/18 19:38 Lab Results 12/28/18 12/28/18 12/28/18 Range/Units 19:38 19:38 19:38 WBC 5.9 (4.3-11.1) K/mcL RBC 2.70 L (4.19-5.50) M/mcL Hgb 8.0 L (12.9-16.9) g/dL Hct 24.1 L (37.5-50.1) % MCV 89.3 (83.0-100.0) fL MCH 29.6 (28.0-33.3) pg MCHC 33.2 (31.6-35.5) g/dL RDW 14.6 H (11.5-14.5) % Plt Count 140 (140-400) K/mcL MPV 8.8 L (9.4-12.4) fL Immature Gran % 0.7 (0-4) % Seg Neutrophils % 74.2 % Lymphocytes % 12.2 % Monocytes % 9.2 % Eosinophils % 2.9 % Basophils % 0.8 % Neutrophils # 4.4 (1.6-8.9) K/mcL Lymphocytes # 0.7 (0.6-4.6) K/mcL Monocytes # 0.5 (0.0-1.3) K/mcL Eosinophils # 0.2 (0.0-0.6) K/mcL Basophils # 0.1 (0.0-0.2) K/mcL PT 11.8 (9.4-12.1) Seconds INR 1.0 APTT 33.2 (26.0-36.0) Seconds Sodium 129 L (136-145) mEq/L Potassium 4.0 (3.5-5.1) mEq/L Chloride 94 L (98-107) mEq/L Carbon Dioxide 29 (23-29) mEq/L BUN 15 (8-23) mg/dL Creatinine 1.24 (0.70-1.30) mg/dL Est GFR ( Amer) > 60 (> 60) Est GFR (Non-Af Amer) 56 L (> 60) BUN/Creatinine Ratio 12 (6-26) Glucose 113 H (70-105) mg/dL Calculated Osmolality 270 L (280-300) Calcium 8.5 L (8.6-10.3) mg/dL Total Bilirubin 0.6 (0.3-1.0) mg/dL Direct Bilirubin 0.2 (0.0-0.2) mg/dL Indirect Bilirubin 0.4 (0.0-1.2) mg/dL AST 11 L (13-39) Units/L ALT 8 (7-52) Units/L Alkaline Phosphatase 87 (34-104) Units/L Creatine Kinase 82 (30-223) Units/L Troponin I < 0.03 (< 0.04) ng/mL Serum Total Protein 5.1 L (6.4-8.9) g/dL Albumin 3.1 L (3.5-5.7) g/dL Globulin 2.0 L (2.4-3.5) g/dL Albumin/Globulin Ratio 1.6 (1.1-2.2) Urine Color (Yellow) Urine Clarity (Clear) Urine pH (5.0-8.0) pH Units Ur Specific [place] (1.010-1.025) Urine Protein (Neg-Trace) mg/dL Urine Glucose (UA) (Normal) mg/dL Urine Ketones (Negative) mg/dL Urine Blood (Negative) Urine Nitrite (Negative) Urine Bilirubin (Negative) Urine Urobilinogen (Normal) mg/dL Ur Leukocyte Esterase (Negative) Urine Microscopic RBC (0-3) per hpf Urine Microscopic WBC (0-3) per hpf Ur Squamous Epith Cells (None-Few) per lpf Urine Bacteria (None-Few) per hpf Hyaline Casts (None-Few) per lpf Ur Culture Indicated? (NO) 12/28/18 Range/Units 21:25 WBC (4.3-11.1) K/mcL RBC (4.19-5.50) M/mcL Hgb (12.9-16.9) g/dL Hct (37.5-50.1) % MCV (83.0-100.0) fL MCH (28.0-33.3) pg MCHC (31.6-35.5) g/dL RDW (11.5-14.5) % Plt Count (140-400) K/mcL MPV (9.4-12.4) fL Immature Gran % (0-4) % Seg Neutrophils % % Lymphocytes % % Monocytes % % Eosinophils % % Basophils % % Neutrophils # (1.6-8.9) K/mcL Lymphocytes # (0.6-4.6) K/mcL Monocytes # (0.0-1.3) K/mcL Eosinophils # (0.0-0.6) K/mcL Basophils # (0.0-0.2) K/mcL PT (9.4-12.1) Seconds INR APTT (26.0-36.0) Seconds Sodium (136-145) mEq/L Potassium (3.5-5.1) mEq/L Chloride (98-107) mEq/L Carbon Dioxide (23-29) mEq/L BUN (8-23) mg/dL Creatinine (0.70-1.30) mg/dL Est GFR ( Amer) (> 60) Est GFR (Non-Af Amer) (> 60) BUN/Creatinine Ratio (6-26) Glucose (70-105) mg/dL Calculated Osmolality (280-300) Calcium (8.6-10.3) mg/dL Total Bilirubin (0.3-1.0) mg/dL Direct Bilirubin (0.0-0.2) mg/dL Indirect Bilirubin (0.0-1.2) mg/dL AST (13-39) Units/L ALT (7-52) Units/L Alkaline Phosphatase (34-104) Units/L Creatine Kinase (30-223) Units/L Troponin I (< 0.04) ng/mL Serum Total Protein (6.4-8.9) g/dL Albumin (3.5-5.7) g/dL Globulin (2.4-3.5) g/dL Albumin/Globulin Ratio (1.1-2.2) Urine Color Yellow (Yellow) Urine Clarity Clear (Clear) Urine pH 6.5 (5.0-8.0) pH Units Ur Specific [place] 1.018 (1.010-1.025) Urine Protein Negative (Neg-Trace) mg/dL Urine Glucose (UA) Normal (Normal) mg/dL Urine Ketones Negative (Negative) mg/dL Urine Blood Negative (Negative) Urine Nitrite Positive A (Negative) Urine Bilirubin Negative (Negative) Urine Urobilinogen Normal (Normal) mg/dL Ur Leukocyte Esterase Moderate H (Negative) Urine Microscopic RBC 3-5 H (0-3) per hpf Urine Microscopic WBC 15-30 H (0-3) per hpf Ur Squamous Epith Cells Many H (None-Few) per lpf Urine Bacteria Many H (None-Few) per hpf Hyaline Casts None Seen (None-Few) per lpf Ur Culture Indicated? YES A (NO) - Radiology Data Radiology results reviewed: Yes I reviewed the patient's radiology results. - EKG Data EKG attestation: Yes I reviewed and interpreted this EKG. EKG results narrative: EKG done at 1912 review myself and the attending shows sinus rhythm rate of 89, TX interval 136, QRS 117, QTC 457. There is no acute ST changes no acute T-wave changes no signs of ischemia. No signs of hypertrophy, heart strain, other blocks he does of her right bundle-branch block. No Cata PW/Brugada/HOCM. No old EKG to compare with TPA Checklist - LKW: 3-4.5 hrs Add. Warnings/Precautions Patient/family understanding: The patient/family members have been counseled and understood the risk, benefit, and alternatives of treatment.
[2018-12-28 19:55] LABS: Basophils # 0.1 K/mcL (0.0-0.2); Basophils % 0.8 %; Eosinophils # 0.2 K/mcL (0.0-0.6); Eosinophils % 2.9 %; Hematocrit 24.1 % (37.5-50.1); Immature Granulocytes % 0.7 % (0-4); Lymphocytes # 0.7 K/mcL (0.6-4.6); Lymphocytes % 12.2 %; Mean Corpuscular HGB Conc 33.2 g/dL (31.6-35.5); Mean Corpuscular Hemoglobin 29.6 pg (28.0-33.3); Mean Corpuscular Volume 89.3 fL (83.0-100.0); Mean Platelet Volume 8.8 fL (9.4-12.4); Monocytes # 0.5 K/mcL (0.0-1.3); Monocytes % 9.2 %; Neutrophils # 4.4 K/mcL (1.6-8.9); Platelet Count 140 K/mcL (140-400); Red Cell Distribution Width 14.6 % (11.5-14.5); Segmented Neutrophils % 74.2 %; White Blood Count 5.9 K/mcL (4.3-11.1)
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
[2018-12-28 20:09] LABS: Prothrombin Time 11.8 Seconds (9.4-12.1)
[2018-12-28 20:11] LABS: Activated Partial Thrombo Time 33.2 Seconds (26.0-36.0)
[2018-12-28 20:13] LABS: Alanine Aminotransferase 8 Units/L (7-52); Albumin 3.1 g/dL (3.5-5.7); Albumin/Globulin Ratio 1.6 (1.1-2.2); Alkaline Phosphatase 87 Units/L (34-104); Aspartate Amino Transferase 11 Units/L (13-39); BUN/Creatinine Ratio 12 (6-26); Bilirubin,Direct 0.2 mg/dL (0.0-0.2); Bilirubin,Indirect 0.4 mg/dL (0.0-1.2); Bilirubin,Total 0.6 mg/dL (0.3-1.0); Blood Urea Nitrogen 15 mg/dL (8-23); Calcium 8.5 mg/dL (8.6-10.3); Carbon Dioxide 29 mEq/L (23-29); Chloride 94 mEq/L (98-107); Creatine Kinase 82 Units/L (30-223); Glucose 113 mg/dL (70-105); Osmolality,Calculated 270 (280-300); Sodium 129 mEq/L (136-145); Total Protein 5.1 g/dL (6.4-8.9); Troponin I < 0.03 ng/mL (< 0.04); eGFR For African Americans > 60 (> 60); eGFR For Non-African Americans 56 (> 60)
[2018-12-28 21:38] LABS: Bilirubin,Urine Negative (Negative); Blood,Urine Negative (Negative); Clarity,Urine Clear (Clear); Color,Urine Yellow (Yellow); Glucose,Urine (UA) Normal (Normal); Ketones,Urine Negative (Negative); Leukocyte Esterase,Urine Moderate (Negative); Nitrite,Urine Positive (Negative); PH,Urine 6.5 pH Units (5.0-8.0); Protein,Urine Negative (Neg-Trace); Specific Gravity,Urine 1.018 (1.010-1.025); Urobilinogen,Urine Normal (Normal)
[2018-12-28 21:41] LABS: Bacteria,Urine Many per hpf (None-Few); Hyaline Casts,Urine None Seen per lpf (None-Few); Squamous Epithelial Cell,Urine Many per lpf (None-Few); WBC,Urine 15-30 per hpf (0-3)
[2018-12-28] MEDS ORDERED: cefTRIAXone 1,000 MG in Water for inj. (sterile) 10 ML IVP ONE (23:12)
[2018-12-29] MEDS ORDERED: Acetaminophen 325 MG TABLET PO PRN (00:10)
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
[2018-12-29] MEDS: 0.9 % Sodium Chloride 1,000 ML IVC SCH ×2 (01:41→09:32)
[2018-12-29 02:52] LABS: Basophils # 0.1 K/mcL (0.0-0.2); Basophils % 0.9 %; Eosinophils # 0.1 K/mcL (0.0-0.6); Eosinophils % 2.1 %; Hematocrit 23.8 % (37.5-50.1); Hemoglobin 7.9 g/dL (12.9-16.9); Immature Granulocytes % 0.7 % (0-4); Lymphocytes # 0.9 K/mcL (0.6-4.6); Lymphocytes % 15.2 %; Mean Corpuscular HGB Conc 33.2 g/dL (31.6-35.5); Mean Corpuscular Hemoglobin 29.6 pg (28.0-33.3); Mean Corpuscular Volume 89.1 fL (83.0-100.0); Mean Platelet Volume 9.5 fL (9.4-12.4); Monocytes # 0.5 K/mcL (0.0-1.3); Monocytes % 8.4 %; Neutrophils # 4.3 K/mcL (1.6-8.9); Platelet Count 152 K/mcL (140-400); Red Blood Count 2.67 M/mcL (4.19-5.50); Red Cell Distribution Width 14.4 % (11.5-14.5); Segmented Neutrophils % 72.7 %; White Blood Count 5.8 K/mcL (4.3-11.1)
[2018-12-29 03:08] LABS: % Iron Saturation 9 % (20-55); BUN/Creatinine Ratio 14 (6-26); Blood Urea Nitrogen 13 mg/dL (8-23); Calcium 8.2 mg/dL (8.6-10.3); Carbon Dioxide 27 mEq/L (23-29); Chloride 97 mEq/L (98-107); Glucose 113 mg/dL (70-105); Iron 27 mcg/dL (65-175); Osmolality,Calculated 273 (280-300); Potassium 3.9 mEq/L (3.5-5.1); Sodium 131 mEq/L (136-145); Transferrin 217 mg/dL (203-362); eGFR For African Americans > 60 (> 60); eGFR For Non-African Americans > 60 (> 60)
[2018-12-29 03:20] LABS: Ferritin 93 ng/mL (20-250)
[2018-12-29] MEDS: Pantoprazole 40 MG VIAL IVP SCH ×2 (05:08→18:19)
--- NOTE | 2018-12-29 09:04 | Internal Med Progress Note ---
Hospitalist Progress Note - Encounter Date of Encounter: 12/29/18 Time of Encounter: 09:04 - Subjective Interval History: Patient was seen and examined at bedside-assisted is very groggy today he arouses to verbal stimuli oriented to name only. - Exam Vitals: Temp Pulse Resp BP Pulse Ox 98.8 F 101 16 148/62 96 12/29/18 06:30 12/29/18 06:30 12/29/18 06:30 12/29/18 06:30 12/29/18 06:30 Exam: General: Well-developed man lying in bed in NAD Skin: Warm, pale and dry. HEENT: Dry mucous membranes. (+) conjunctivae pallor. Neck: No lymphadenopathy. No JVD. No carotid bruits. No palpable thyroid. Chest: Normal thoracic expansion. Normal breath sounds. Clear to auscultation. Heart: Normal S1 & S2; rhythmic. No rubs or murmurs. Abdomen: Non-distended, soft and non-tender to palpation. No peritoneal reaction. Extremities: Left AKA with well-healing stump. Right leg without edema, cyanosis. Neurological: Somnolent but easily arousable, oriented to person, place. No focal deficits. Psych: Affect appropriate. - Assessment and Plan (1) Acute encephalopathy Current Visit: Yes Status: Acute Assessment and Plan: 1 patient does have a history of dementia according to family-suspect this may be related to urinary tract infection as well as dehydration he also have some anemia stool occult is positive we will monitor closely (2) Dehydration Current Visit: Yes Status: Acute Assessment and Plan: Continue with IV fluids monitor hyponatremia and electrolytes (3) HTN (hypertension) Current Visit: No Status: Chronic Assessment and Plan: Pressure stable at this time we will continue with home medications and monitor (4) CAD (coronary artery disease) Current Visit: Yes Status: Chronic Assessment and Plan: Continue with aspirin and beta jama (5) UTI (urinary tract infection) Current Visit: Yes Status: Acute Assessment and Plan: Continue with IV antibiotics for 3 days urine culture pending (6) Hyponatremia Current Visit: No Status: Resolved Assessment and Plan: Sodium was 129 on presentation 1:30 this morning we will continue with IV fluids and monitor closely - Time Spent with Patient Total time spent is greater than 50% in coordination of care (as documented) at patient's floor/unit and/or counseling patient: Internal Medicine: Result - Labs CBC & Chem 7: 12/29/18 01:13 12/29/18 01:13 Labs: Short CBC 12/28/18 12/29/18 Range/Units 19:38 01:13 WBC 5.9 5.8 (4.3-11.1) K/mcL Hgb 8.0 L 7.9 L (12.9-16.9) g/dL Hct 24.1 L 23.8 L (37.5-50.1) % Plt Count 140 152 (140-400) K/mcL Neutrophils # 4.4 4.3 (1.6-8.9) K/mcL BMP 12/28/18 12/29/18 19:38 01:13 Sodium 129 L 131 L Potassium 4.0 3.9 Chloride 94 L 97 L Carbon Dioxide 29 27 BUN 15 13 Creatinine 1.24 0.95 Glucose 113 H 113 H Calcium 8.5 L 8.2 L Cardiac Enzymes 12/28/18 Range/Units 19:38 Troponin I < 0.03 (< 0.04) ng/mL Liver Function 12/28/18 Range/Units 19:38 Total Bilirubin 0.6 (0.3-1.0) mg/dL Direct Bilirubin 0.2 (0.0-0.2) mg/dL AST 11 L (13-39) Units/L ALT 8 (7-52) Units/L Alkaline Phosphatase 87 (34-104) Units/L Albumin 3.1 L (3.5-5.7) g/dL Urine 12/28/18 Range/Units 21:25 Urine Color Yellow (Yellow) Urine Clarity Clear (Clear) Urine pH 6.5 (5.0-8.0) pH Units Ur Specific [place] 1.018 (1.010-1.025) Urine Protein Negative (Neg-Trace) mg/dL Urine Glucose (UA) Normal (Normal) mg/dL - ABG Interpretation ABG results: PT/INR, D-dimer PT 11.8 Seconds (9.4-12.1) 12/28/18 19:38 - Impressions Impressions Chest X-Ray 12/28/18 19:19 IMPRESSION: No acute cardiopulmonary abnormality. D/ / Lisa Solano MD / Lisa Bruce MD Interpreting Provider: Lisa Solano MD Head CT 12/28/18 19:19 IMPRESSION: No acute intracranial abnormality. D/ / Celso Gibbs MD / Celso Gibbs MD Interpreting Provider: Celso Gibbs MD Consult Discharge Plan - Plan Referrals: NONE,PCP [Primary Care Provider] - (3) HTN (hypertension) Qualifiers: Hypertension type: essential hypertension Qualified Code(s): I10 - Essential (primary) hypertension (4) CAD (coronary artery disease) Qualifiers: Coronary Disease-Associated Artery/Lesion type: [place] artery [place] vs. transplanted heart: [place] heart Associated angina: without angina Qualified Code(s): I25.10 - Atherosclerotic heart disease of [place] coronary artery without angina pectoris (5) UTI (urinary tract infection) Qualifiers: Urinary tract infection type: urethritis Qualified Code(s): N34.2 - Other urethritis
[2018-12-29] MEDS: Aspirin Enteric Coated 81 MG Tablet PO SCH (09:32)
[2018-12-29] MEDS: cefTRIAXone 1,000 MG in Water for inj. (sterile) 10 ML IVPB SCH (09:33)
--- NOTE | 2018-12-30 00:43 | Electrocardiograph Report ---
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
[2018-12-30 05:45] LABS: Basophils % 0.7 %; Eosinophils # 0.2 K/mcL (0.0-0.6); Eosinophils % 3.2 %; Immature Granulocytes % 0.7 % (0-4); Lymphocytes % 16.9 %; Mean Corpuscular HGB Conc 33.3 g/dL (31.6-35.5); Mean Corpuscular Hemoglobin 30.3 pg (28.0-33.3); Mean Corpuscular Volume 90.9 fL (83.0-100.0); Mean Platelet Volume 9.3 fL (9.4-12.4); Monocytes # 0.5 K/mcL (0.0-1.3); Monocytes % 8.5 %; Neutrophils # 3.9 K/mcL (1.6-8.9); Platelet Count 148 K/mcL (140-400); Red Blood Count 2.64 M/mcL (4.19-5.50); Red Cell Distribution Width 14.6 % (11.5-14.5); White Blood Count 5.6 K/mcL (4.3-11.1)
[2018-12-30] MEDS: Pantoprazole 40 MG VIAL IVP SCH ×2 (05:56→17:44)
[2018-12-30 06:07] LABS: BUN/Creatinine Ratio 12 (6-26); Blood Urea Nitrogen 9 mg/dL (8-23); Calcium 8.4 mg/dL (8.6-10.3); Carbon Dioxide 24 mEq/L (23-29); Chloride 98 mEq/L (98-107); Glucose 93 mg/dL (70-105); Osmolality,Calculated 266 (280-300); Potassium 3.8 mEq/L (3.5-5.1); Sodium 129 mEq/L (136-145); eGFR For African Americans > 60 (> 60); eGFR For Non-African Americans > 60 (> 60)
--- NOTE | 2018-12-30 08:02 | Internal Med Progress Note ---
Hospitalist Progress Note - Encounter Date of Encounter: 12/30/18 Time of Encounter: 08:02 - Subjective Interval History: Patient was seen and examined at bedside More alert and appropriate following simple commands - Exam Vitals: Temp Pulse Resp BP Pulse Ox 97.6 F 82 16 145/69 93 12/30/18 07:26 12/30/18 07:26 12/30/18 07:26 12/30/18 07:26 12/30/18 07:26 Exam: General: Well-developed man lying in bed in NAD Skin: Warm, pale and dry. HEENT: Dry mucous membranes. (+) conjunctivae pallor. Neck: No lymphadenopathy. No JVD. No carotid bruits. No palpable thyroid. Chest: Normal thoracic expansion. Normal breath sounds. Clear to auscultation. Heart: Normal S1 & S2; rhythmic. No rubs or murmurs. Abdomen: Non-distended, soft and non-tender to palpation. No peritoneal reaction. Extremities: Left AKA with well-healing stump. Right leg without edema, cyanosis. Neurological: Somnolent but easily arousable, oriented to person, place. No focal deficits. Psych: Affect appropriate. - Assessment and Plan (1) Acute encephalopathy Current Visit: Yes Status: Acute Assessment and Plan: 1 patient does have a history of dementia according to family-suspect this may be related to urinary tract infection as well as dehydration he also have some anemia stool occult is positive we will monitor closely 12/30 He is more alert and appropiate today. - Suspect encephalopathy maybe secondary to infection- we will cont with ATB (2) Dehydration Current Visit: Yes Status: Acute Assessment and Plan: Continue with IV fluids monitor hyponatremia and electrolytes 12/30 Appears to be improving - he does have hyponatremia - we will stop IVF and monitor electrolytes closely (3) HTN (hypertension) Current Visit: No Status: Chronic Assessment and Plan: Pressure stable at this time we will continue with home medications and monitor (4) CAD (coronary artery disease) Current Visit: Yes Status: Chronic Assessment and Plan: Continue with aspirin and beta jama (5) UTI (urinary tract infection) Current Visit: Yes Status: Acute Assessment and Plan: Continue with IV antibiotics for 3 days urine culture pending (6) Hyponatremia Current Visit: No Status: Resolved Assessment and Plan: Sodium was 129 on presentation 1:30 this morning we will continue with IV fluids and monitor closely 12/30 Received IVF - cont to have Na 129 we will check urine-serum osmo - fluid restrictions - resume lasix - Time Spent with Patient Total time spent is greater than 50% in coordination of care (as documented) at patient's floor/unit and/or counseling patient: Internal Medicine: Result - Labs CBC & Chem 7: 12/30/18 05:12 12/30/18 05:12 Labs: Short CBC 12/30/18 Range/Units 05:12 WBC 5.6 (4.3-11.1) K/mcL Hgb 8.0 L (12.9-16.9) g/dL Hct 24.0 L (37.5-50.1) % Plt Count 148 (140-400) K/mcL Neutrophils # 3.9 (1.6-8.9) K/mcL BMP 12/29/18 12/29/18 12/30/18 14:49 20:11 05:12 Sodium 130 L 128 L 129 L Potassium 3.8 Chloride 98 Carbon Dioxide 24 BUN 9 Creatinine 0.73 Glucose 93 Calcium 8.4 L - ABG Interpretation ABG results: PT/INR, D-dimer PT 11.8 Seconds (9.4-12.1) 12/28/18 19:38 Consult Discharge Plan - Plan Referrals: NONE,PCP [Primary Care Provider] - (3) HTN (hypertension) Qualifiers: Hypertension type: essential hypertension Qualified Code(s): I10 - Essential (primary) hypertension (4) CAD (coronary artery disease) Qualifiers: Coronary Disease-Associated Artery/Lesion type: [place] artery [place] vs. transplanted heart: [place] heart Associated angina: without angina Qualified Code(s): I25.10 - Atherosclerotic heart disease of [place] coronary artery without angina pectoris (5) UTI (urinary tract infection) Qualifiers: Urinary tract infection type: urethritis Qualified Code(s): N34.2 - Other urethritis
[2018-12-30] MEDS ORDERED: Furosemide 20 MG TABLET PO SCH (09:00)
[2018-12-30] MEDS: Aspirin Enteric Coated 81 MG Tablet PO SCH (09:07)
[2018-12-30] MEDS: cefTRIAXone 1,000 MG in Water for inj. (sterile) 10 ML IVPB SCH (09:07)
[2018-12-30] MEDS ORDERED: 0.9 % Sodium Chloride 1,000 ML IVC SCH (17:00)
[2018-12-31 02:54] LABS: Basophils % 0.5 %; Eosinophils # 0.2 K/mcL (0.0-0.6); Eosinophils % 3.5 %; Hematocrit 24.3 % (37.5-50.1); Hemoglobin 8.2 g/dL (12.9-16.9); Immature Granulocytes % 0.8 % (0-4); Lymphocytes # 1.1 K/mcL (0.6-4.6); Lymphocytes % 17.8 %; Mean Corpuscular HGB Conc 33.7 g/dL (31.6-35.5); Mean Corpuscular Hemoglobin 30.1 pg (28.0-33.3); Mean Corpuscular Volume 89.3 fL (83.0-100.0); Mean Platelet Volume 9.1 fL (9.4-12.4); Monocytes # 0.6 K/mcL (0.0-1.3); Monocytes % 10.6 %; Platelet Count 159 K/mcL (140-400); Red Blood Count 2.72 M/mcL (4.19-5.50); Red Cell Distribution Width 14.3 % (11.5-14.5); Segmented Neutrophils % 66.8 %
[2018-12-31 03:16] LABS: BUN/Creatinine Ratio 12 (6-26); Blood Urea Nitrogen 9 mg/dL (8-23); Calcium 8.2 mg/dL (8.6-10.3); Carbon Dioxide 24 mEq/L (23-29); Chloride 93 mEq/L (98-107); Glucose 115 mg/dL (70-105); Osmolality,Calculated 264 (280-300); Potassium 3.5 mEq/L (3.5-5.1); Sodium 127 mEq/L (136-145); eGFR For African Americans > 60 (> 60); eGFR For Non-African Americans > 60 (> 60)
[2018-12-31] MEDS: Pantoprazole 40 MG VIAL IVP SCH ×2 (05:32→16:37)
[2018-12-31] MEDS: 0.9 % Sodium Chloride 1,000 ML IVC SCH ×2 (05:33→20:30)
--- NOTE | 2018-12-31 08:36 | Internal Med Progress Note ---
Hospitalist Progress Note - Encounter Date of Encounter: 12/31/18 Time of Encounter: 08:32 - Subjective Interval History: Patient was seen and examined at bedside. Alert and oriented 2 today following simple commands sodium continues to be low continue with IV fluids. Awaiting GIs recommendations-no active bleeding at this time - Exam Vitals: Temp Pulse Resp BP Pulse Ox 98.4 F 76 16 171/68 96 12/31/18 07:12 12/31/18 07:12 12/31/18 07:12 12/31/18 07:12 12/31/18 07:12 Exam: General: Well-developed man lying in bed in NAD Skin: Warm, pale and dry. HEENT: Dry mucous membranes. (+) conjunctivae pallor. Neck: No lymphadenopathy. No JVD. No carotid bruits. No palpable thyroid. Chest: Normal thoracic expansion. Normal breath sounds. Clear to auscultation. Heart: Normal S1 & S2; rhythmic. No rubs or murmurs. Abdomen: Non-distended, soft and non-tender to palpation. No peritoneal reaction. Extremities: Left AKA with well-healing stump. Right leg without edema, cyanosis. Neurological: Somnolent but easily arousable, oriented to person, place. No focal deficits. Psych: Affect appropriate. - Assessment and Plan (1) Acute encephalopathy Current Visit: Yes Status: Acute Assessment and Plan: 1 patient does have a history of dementia according to family-suspect this may be related to urinary tract infection as well as dehydration he also have some anemia stool occult is positive we will monitor closely 12/30 He is more alert and appropiate today. - Suspect encephalopathy maybe secondary to infection- we will cont with ATB 12/31 Patient is more alert and appropriate today-suspect this is multifactorial with infection as well as hyponatremia continue IV fluids and antibiotics for now (2) Dehydration Current Visit: Yes Status: Acute Assessment and Plan: Continue with IV fluids monitor hyponatremia and electrolytes 12/30 Appears to be improving - he does have hyponatremia - we will stop IVF and monitor electrolytes closely 12/31 Continue with IV fluids patient continues have hyponatremia (3) HTN (hypertension) Current Visit: No Status: Chronic Assessment and Plan: Pressure stable at this time we will continue with home medications and monitor (4) CAD (coronary artery disease) Current Visit: Yes Status: Chronic Assessment and Plan: Continue with aspirin and beta jama (5) UTI (urinary tract infection) Current Visit: Yes Status: Acute Assessment and Plan: Continue with IV antibiotics for 3 days urine culture shows gram negative rods (6) Hyponatremia Current Visit: No Status: Resolved Assessment and Plan: Sodium was 129 on presentation 1:30 this morning we will continue with IV fluids and monitor closely 12/30 Received IVF - cont to have Na 129 we will check urine-serum osmo - fluid restrictions - resume lasix 12/31 Continue with IV fluids - Time Spent with Patient Total time spent is greater than 50% in coordination of care (as documented) at patient's floor/unit and/or counseling patient: Internal Medicine: Result - Labs CBC & Chem 7: 12/31/18 01:11 12/31/18 01:11 Labs: Short CBC 12/31/18 Range/Units 01:11 WBC 6.0 (4.3-11.1) K/mcL Hgb 8.2 L (12.9-16.9) g/dL Hct 24.3 L (37.5-50.1) % Plt Count 159 (140-400) K/mcL Neutrophils # 4.0 (1.6-8.9) K/mcL BMP 12/30/18 12/30/18 12/31/18 14:44 19:25 01:11 Sodium 125 L 126 L 127 L Potassium 3.5 Chloride 93 L Carbon Dioxide 24 BUN 9 Creatinine 0.78 Glucose 115 H Calcium 8.2 L - ABG Interpretation ABG results: PT/INR, D-dimer PT 11.8 Seconds (9.4-12.1) 12/28/18 19:38 Consult Discharge Plan - Plan Referrals: NONE,PCP [Primary Care Provider] - (3) HTN (hypertension) Qualifiers: Hypertension type: essential hypertension Qualified Code(s): I10 - Essential (primary) hypertension (4) CAD (coronary artery disease) Qualifiers: Coronary Disease-Associated Artery/Lesion type: [place] artery [place] vs. transplanted heart: [place] heart Associated angina: without angina Qualified Code(s): I25.10 - Atherosclerotic heart disease of [place] coronary artery without angina pectoris (5) UTI (urinary tract infection) Qualifiers: Urinary tract infection type: urethritis Qualified Code(s): N34.2 - Other urethritis
[2018-12-31] MEDS: cefTRIAXone 1,000 MG in Water for inj. (sterile) 10 ML IVPB SCH (09:43)
[2018-12-31] MEDS: Aspirin Enteric Coated 81 MG Tablet PO SCH (09:43)
[2018-12-31] MEDS ORDERED: Lidocaine -MPF 2% 2 ML VIAL ONE (13:01)
[2018-12-31] MEDS ORDERED: *HR* Propofol 200 MG/20 ML VIAL IVP ONE (13:01)
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
[2018-12-31] MEDS ORDERED: 0.9 % Sodium Chloride 500 ML IVC SCH (14:00)
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
[2018-12-31] MEDS ORDERED: SODIUM CHLORIDE/NAHCO3/KCL/PEG 4,000 ML SOLN.RECON PO ONE (17:00)
[2019-01-01] MEDS: Pantoprazole 40 MG VIAL IVP SCH ×2 (05:41→16:57)
[2019-01-01] MEDS: cefTRIAXone 1,000 MG in Water for inj. (sterile) 10 ML IVPB SCH (07:35)
[2019-01-01] MEDS: Aspirin Enteric Coated 81 MG Tablet PO SCH (07:36)
[2019-01-01] MEDS: 0.9 % Sodium Chloride 1,000 ML IVC SCH ×2 (08:00→21:06)
[2019-01-01 09:12] LABS: Basophils % 0.6 %; Eosinophils # 0.2 K/mcL (0.0-0.6); Eosinophils % 4.6 %; Hematocrit 24.7 % (37.5-50.1); Hemoglobin 8.5 g/dL (12.9-16.9); Lymphocytes # 0.7 K/mcL (0.6-4.6); Lymphocytes % 14.2 %; Mean Corpuscular HGB Conc 34.4 g/dL (31.6-35.5); Mean Corpuscular Hemoglobin 29.6 pg (28.0-33.3); Mean Corpuscular Volume 86.1 fL (83.0-100.0); Mean Platelet Volume 8.9 fL (9.4-12.4); Monocytes # 0.5 K/mcL (0.0-1.3); Neutrophils # 3.5 K/mcL (1.6-8.9); Platelet Count 152 K/mcL (140-400); Red Blood Count 2.87 M/mcL (4.19-5.50); Segmented Neutrophils % 69.6 %
--- NOTE | 2019-01-01 09:39 | Internal Med Progress Note ---
Hospitalist Progress Note - Encounter Date of Encounter: 01/01/19 Time of Encounter: 09:39 - Subjective Interval History: Patient was seen and examined at bedside currently he is sleeping however does arouse to verbal stimuli. He is alert and appropriate following simple commands. - Exam Vitals: Temp Pulse Resp BP Pulse Ox 97.9 F 64 16 167/64 97 01/01/19 08:14 01/01/19 08:14 01/01/19 08:14 01/01/19 08:14 01/01/19 08:14 Exam: General: Well-developed man lying in bed in NAD Skin: Warm, pale and dry. HEENT: Dry mucous membranes. (+) conjunctivae pallor. Neck: No lymphadenopathy. No JVD. No carotid bruits. No palpable thyroid. Chest: Normal thoracic expansion. Normal breath sounds. Clear to auscultation. Heart: Normal S1 & S2; rhythmic. No rubs or murmurs. Abdomen: Non-distended, soft and non-tender to palpation. No peritoneal reaction. Extremities: Left AKA with well-healing stump. Right leg without edema, cyanosis. Neurological: Somnolent but easily arousable, oriented to person, place. No focal deficits. Psych: Affect appropriate. - Assessment and Plan (1) Acute encephalopathy Current Visit: Yes Status: Acute Assessment and Plan: 1 patient does have a history of dementia according to family-suspect this may be related to urinary tract infection as well as dehydration he also have some anemia stool occult is positive we will monitor closely 12/30 He is more alert and appropiate today. - Suspect encephalopathy maybe secondary to infection- we will cont with ATB 12/31 Patient is more alert and appropriate today-suspect this is multifactorial with infection as well as hyponatremia continue IV fluids and antibiotics for now 01/01 Suspect multifatoral -Hyponatremia - cont with IV fluids - UTI cont with ATB- dehydration (2) Dehydration Current Visit: Yes Status: Acute Assessment and Plan: Continue with IV fluids monitor hyponatremia and electrolytes 12/30 Appears to be improving - he does have hyponatremia - we will stop IVF and monitor electrolytes closely 12/31 Continue with IV fluids patient continues have hyponatremia 01/01 Patient was given bowel prep overnight, he has poor oral intake we will cont with IVF and monitor electrolytes (3) HTN (hypertension) Current Visit: No Status: Chronic Assessment and Plan: Pressure stable at this time we will continue with home medications and monitor (4) CAD (coronary artery disease) Current Visit: Yes Status: Chronic Assessment and Plan: Continue with aspirin and beta jama (5) UTI (urinary tract infection) Current Visit: Yes Status: Acute Assessment and Plan: Recieved 3 days of IV rocephin - urine culture Citrobacter amalonatiicus- sensitive to rocephn (6) Anemia Current Visit: Yes Status: Acute Assessment and Plan: appears baseline Hgb around 11-12, Hgb 8.5 today - hemoccult stool positive - GI was consulted EGD completed and does show - Gastritis was prepped for colonoscopy however this has been cancelled dt to hyponatremia (7) Hyponatremia Current Visit: No Status: Acute Assessment and Plan: Sodium was 129 on presentation 1:30 this morning we will continue with IV fluids and monitor closely 12/30 Received IVF - cont to have Na 129 we will check urine-serum osmo - fluid restrictions - resume lasix 12/31 Continue with IV fluids 01/01 Patient received colonoscopy prep last night and sodium was 122 he was given IV fluids slowly commodes 124 we will cancel colonoscopy for now continue with IV fluid and monitor sodium closely. Currently does not have any seizure activity he is a little confused and sure if this is his baseline he does have history dementia - Time Spent with Patient Total time spent is greater than 50% in coordination of care (as documented) at patient's floor/unit and/or counseling patient: Internal Medicine: Result - Labs CBC & Chem 7: 01/01/19 08:07 01/01/19 08:07 Labs: Short CBC 01/01/19 Range/Units 08:07 WBC 5.0 (4.3-11.1) K/mcL Hgb 8.5 L (12.9-16.9) g/dL Hct 24.7 L (37.5-50.1) % Plt Count 152 (140-400) K/mcL Neutrophils # 3.5 (1.6-8.9) K/mcL BMP 12/31/18 12/31/18 12/31/18 09:31 16:21 21:50 Sodium 127 L 128 L 122 L 01/01/19 08:07 Sodium 124 L - ABG Interpretation ABG results: PT/INR, D-dimer PT 11.8 Seconds (9.4-12.1) 12/28/18 19:38 Consult Discharge Plan - Plan Referrals: Kolton Stanton Jr, MD [Non-Partnered Physician] - (3) HTN (hypertension) Qualifiers: Hypertension type: essential hypertension Qualified Code(s): I10 - Essential (primary) hypertension (4) CAD (coronary artery disease) Qualifiers: Coronary Disease-Associated Artery/Lesion type: [place] artery [place] vs. transplanted heart: [place] heart Associated angina: without angina Qualified Code(s): I25.10 - Atherosclerotic heart disease of [place] coronary artery without angina pectoris (5) UTI (urinary tract infection) Qualifiers: Urinary tract infection type: urethritis Qualified Code(s): N34.2 - Other urethritis (6) Anemia Qualifiers: Anemia type: iron deficiency Iron deficiency anemia type: unspecified iron deficiency Qualified Code(s): D50.9 - Iron deficiency anemia, unspecified
[2019-01-01 13:51] LABS: BUN/Creatinine Ratio 5 (6-26); Blood Urea Nitrogen 3 mg/dL (8-23); Calcium 8.2 mg/dL (8.6-10.3); Carbon Dioxide 25 mEq/L (23-29); Chloride 93 mEq/L (98-107); Glucose 133 mg/dL (70-105); Osmolality,Calculated 256 (280-300); Potassium 3.3 mEq/L (3.5-5.1); Sodium 124 mEq/L (136-145); eGFR For African Americans > 60 (> 60); eGFR For Non-African Americans > 60 (> 60)
[2019-01-02] MEDS: Pantoprazole 40 MG VIAL IVP SCH ×2 (05:18→18:07)
[2019-01-02] MEDS ORDERED: *HR* Dextrose 50 % in Water (Syg) 50 ML SYRINGE IVP PRN (07:34)
[2019-01-02] MEDS ORDERED: D5% in Water 1,000 ML IVC PRN (07:34)
[2019-01-02] MEDS ORDERED: Dextrose Gel 15 GM/37.5 ML TUBE PO PRN ×2 (07:34)
[2019-01-02] MEDS ORDERED: Furosemide 20 MG TABLET PO PRN (07:43)
[2019-01-02] MEDS: amLODIPine 5 MG TABLET PO SCH (08:26)
[2019-01-02] MEDS: Aspirin Enteric Coated 81 MG Tablet PO SCH (08:26)
[2019-01-02] MEDS: Gabapentin 100 MG CAPSULE PO SCH (08:26)
[2019-01-02] MEDS: TOBRAMYCIN OP SCH ×2 (09:00→20:25)
[2019-01-02] MEDS: LOTEPRED ETAB OP SCH ×2 (09:00→20:25)
[2019-01-02] MEDS ORDERED: Furosemide 20 MG TABLET PO SCH (09:00)
[2019-01-02] MEDS ORDERED: *HR* Enoxaparin 40 MG/0.4 ML SYRINGE SQ SCH (09:00)
[2019-01-02] MEDS ORDERED: 0.9 % Sodium Chloride 1,000 ML IVC SCH ×2 (10:45→21:15)
--- NOTE | 2019-01-02 11:03 | Nephrology Consult Note ---
Date of Encounter: 01/02/19 Time of Encounter: 10:00 Assessment and Plan (1) Hyponatremia Current Visit: No Status: Acute Hyponatremia likely due to dehydration from UTI Sodium dropped to 124 from 128 this morning from IV fluids being stopped from loss of IV site Patient's current free water deficit is 3.2 L We will restart fluids at 125 mL per hour of normal saline with every 6 hours sodium checks We will also add salt tablets 1 g 3 times a day We will also do a workup for possible obstruction with bladder scan Urine sodium has been ordered as well as urine creatinine Continue to monitor patient's sodium levels as well as renal function at this time (2) Acute encephalopathy Current Visit: Yes Status: Resolved According to family member in room patient is back to his baseline This was likely multifactorial including from hyponatremia as well as UTI (3) Anemia Current Visit: Yes Status: Acute Patient is currently being worked up for anemia Gastritis was noted on upper endoscopy Bowel prep and colonoscopy had to be held due to worsening hyponatremia As per primary Qualifiers: Anemia type: iron deficiency Iron deficiency anemia type: unspecified iron deficiency Qualified Code(s): D50.9 - Iron deficiency anemia, unspecified History of Present Illness - Reason for Consult Consult date: 01/01/19 hyponatremia Requesting physician: Natalee Redman - Chief Complaint altered mental status - History of Present Illness Ms. Delacruz is an 83-year-old male who initially reported the ED after days of mental status change with poor responsiveness, weakness. He was found on 2 days prior to admission and unsure about how long he had been down. Patient was admitted for acute encephalopathy and hyponatremia with a sodium at 129. Patient also had a decreased hemoglobin of 8 was his baseline typically 11-12. He was worked up for possible GI causes but his bowel prep had to be stopped after his sodium fell from 128-122. His sodium had increased to 128 today but after IV fluids had to be stopped due to IV access loss it dropped to 124. Patient was seen and examined at bedside today with daughter in the room. She states that she felt that he had not been drinking as well as he had been in the past and that he sounded like he had cotton in his mouth on Monday which she did tell the usp. He has still been making urine and has not had any urinary symptoms. He sees Dr. Vicente for his kidney care. He has been dehydrated before and has blood work regularly to check his electrolytes. He is on Lasix at home 20 mg in the morning. Patient denied any family history of renal failure Patient denied any history of low sodium levels Patient denied any chest pain, shortness of breath, abdominal pain, increasing edema Yesterday's labs included a white blood cell count 5, hemoglobin of 8.5 increased from 8.2, hematocrit 24.7 increased from 24.3, sodium today is initially was 128 has decreased to 124, potassium yesterday 3.3, chloride 93 yesterday, BUN of 3, creatinine 0.57, GFR greater than 60. Patient's UA on admission showed clear yellow urine with pH of 6.5, specific gravity 1.018, positive for nitrite, moderate leukocyte esterase, 3-5 microscop ic RBCs, 15-30 microscopic WBC, many epithelial cells, many bacteria and culture grew Citrobacter. Vital signs today were stable with blood pressure 170/79 elevated, patient is afebrile. Yesterday patient had a total input of 2350 mL no urine output was monitored, the patient has received 360 mL oral intake Patient is encephalopathy seems to have resolved this time and according to family member is back to baseline Past Med Surg Social Fam HX - Past Medical History Medical history: cancer, coronary artery disease, hyperlipidemia, hypertension, myocardial infarction, other Additional medical history: Colon CA Psychiatric history: no psych history - Past Surgical History Surgical History: cholecystectomy, coronary bypass (CABG) Additional surgical history: colon CA, hernia repair, cornea transplant - Social History Smoking Status: Never smoker Smokeless Tobacco Status: No Alcohol use: none Drug use: none - Family History Father Hx Family Cardiac Disorders: Yes (CHF,angina) Mother Hx Family Cardiac Disorders: Yes (HI,cva) Medications and Allergies Aspirin [Lo-Dose Aspirin EC] 81 mg PO QAM 03/31/18 [History] Atenolol 100 mg PO QAM 03/31/18 [History] Calcium Carbonate/Vitamin D3 [Calcium 600 + Vit D Tablet] 1 tab PO QAM 03/31/18 [History] Tamsulosin [Flomax] 0.4 mg PO QAM 09/15/18 [History] Latanoprost [Xalatan] 1 drop BOTH EYES HS 12/30/18 [History] Tobramycin/Lotepred Etab [Zylet Eye Drops] 1 drop RIGHT EYE BID 12/30/18 [History] metFORMIN [Glucophage] 500 mg PO QAM 12/30/18 [History] Amlodipine Besylate 2.5 mg PO QAM 12/31/18 [History] Enoxaparin [Lovenox] 40 mg SQ QAM 12/31/18 [History] Furosemide [Lasix] 20 mg PO QAM 12/31/18 [History] Gabapentin [Neurontin] 100 mg PO QAM 12/31/18 [History] Netarsudil Mesylate [Rhopressa] 1 drop BOTH EYES HS 12/31/18 [History] Pantoprazole Sodium [Protonix] 40 mg PO QAM 12/31/18 [History] Tramadol HCl [Ultram] 50 mg PO Q6H PRN 12/31/18 [History] Trazodone HCl 25 mg PO HS 12/31/18 [History] Allergy/AdvReac Type Severity Reaction Status Date / Time Penicillins Allergy Mild Hives Verified 12/30/18 15:28 Review of Systems Constitutional: no chills, no fever(s), no weakness Nose, mouth and throat: dry mouth Cardiovascular: no chest pain, no edema, no leg edema Respiratory: no cough, no hemoptysis Gastrointestinal: no abdominal pain, no constipation, no loose stools, no nausea, no vomiting Genitourinary Male: no urinary frequency, no urinary hesitancy, no urinary incontinence, no urinary urgency Exam - Vital Signs Vital signs: Initial Vital Signs Temp Pulse Resp BP Pulse Ox 99.0 F 95 18 121/57 96 12/28/18 19:08 12/28/18 19:08 12/28/18 19:08 12/28/18 19:08 12/28/18 19:08 Vital Signs - Last 8 Hours Temp Pulse Resp BP Pulse Ox 01/02/19 07:43 97.3 F L 74 16 178/79 96 01/02/19 03:10 170/70 01/02/19 03:09 98.1 F 74 16 174/74 100 Intake and Output 01/01/19 01/02/19 01/02/19 23:59 07:59 15:59 Intake Total 1110 / 2350 360 / 360 Balance 1110 / 2350 360 / 360 Intake: IV Fluids 1009 0.9 % Sodium Chloride 1,000 ML 1000 / 1000 @ 75 mls/hr IVC .[id number] [facility] Rx #:[id number] Rocephin 1,000 MG In Water for inj. (sterile) 10 ML @ 600 mls/ hr IVPB DAILY [facility] Rx#: [id number] Oral 100 / 340 360 / 360 Other: Meal Breakfast Percent of Meal Consumed 100% Stool Size Large Stool Consistency loose Stool Color Yellow # Voids 2 # Urine Diapers 1 # Bowel Movement Diapers 1 Weight 62.6 kg Blood Glucose* 116 Patient Weight 01/02/19 23:59 Weight 62.6 kg - General Appearance General appearance: well-developed, cachectic EENT: mucous membranes dry Neck: no JVD, no carotid bruit, supple Respiratory: clear Cardiology: no murmurs, no edema, regular rate, regular rhythm Gastrointestinal: normoactive bowel sounds, no tenderness, no guarding, no organomegaly, no masses Integumentary: no rash, warm and dry Results - Lab Results 01/01/19 08:07 01/02/19 07:52 Consult Discharge Plan - Plan Referrals: Kolton Stanton Jr, MD [Non-Partnered Physician] -
--- NOTE | 2019-01-02 11:55 | Internal Med Progress Note ---
Hospitalist Progress Note - Encounter Date of Encounter: 01/02/19 Time of Encounter: 11:49 - Subjective Interval History: Pt seen and examined in the room. Reported absence of abdominal pain, N/V, or bloody stool. No fever, chills, or night sweats. - Exam Vitals: Temp Pulse Resp BP Pulse Ox 97.3 F L 74 16 178/79 96 01/02/19 07:43 01/02/19 07:43 01/02/19 07:43 01/02/19 07:43 01/02/19 07:43 Exam: General: Well-developed man lying in bed in NAD Skin: Warm, pale and dry. HEENT: Dry mucous membranes. (+) conjunctivae pallor. Neck: No lymphadenopathy. No JVD. No carotid bruits. No palpable thyroid. Chest: Normal thoracic expansion. Normal breath sounds. Clear to auscultation. Heart: Normal S1 & S2; rhythmic. No rubs or murmurs. Abdomen: Non-distended, soft and non-tender to palpation. No peritoneal reaction. Extremities: Left AKA with well-healing stump. Right leg without edema, cyanosis. Neurological: Somnolent but easily arousable, oriented to person, place. No focal deficits. Psych: Affect appropriate. - Assessment and Plan (1) Hyponatremia Current Visit: No Status: Acute Assessment and Plan: Sodium was 129 on presentation 1:30 this morning we will continue with IV fluids and monitor closely 12/30 Received IVF - cont to have Na 129 we will check urine-serum osmo - fluid restrictions - resume lasix 12/31 Continue with IV fluids 01/01 Patient received colonoscopy prep last night and sodium was 122 he was given IV fluids slowly commodes 124 we will cancel colonoscopy for now continue with IV fluid and monitor sodium closely. Currently does not have any seizure activity he is a little confused and sure if this is his baseline he does have history dementia. 01/02 renal following, appreciate help. (2) UTI (urinary tract infection) Current Visit: Yes Status: Acute Assessment and Plan: Recieved 3 days of IV rocephin - urine culture Citrobacter amalonatiicus- sensitive to rocephn. currently off IV abs, no urinary symptoms. (3) Acute encephalopathy Current Visit: Yes Status: Resolved Assessment and Plan: 1 patient does have a history of dementia according to family-suspect this may be related to urinary tract infection as well as dehydration he also have some anemia stool occult is positive we will monitor closely 12/30 He is more alert and appropiate today. - Suspect encephalopathy maybe secondary to infection- we will cont with ATB 12/31 Patient is more alert and appropriate today-suspect this is multifactorial with infection as well as hyponatremia continue IV fluids and antibiotics for now 01/01 Suspect multifatoral -Hyponatremia - cont with IV fluids - UTI cont with ATB- dehydration. 01/02 at baseline with dementia, continue monitoring. (4) Dehydration Current Visit: Yes Status: Acute Assessment and Plan: Continue with IV fluids monitor hyponatremia and electrolytes 12/30 Appears to be improving - he does have hyponatremia - we will stop IVF and monitor electrolytes closely 12/31 Continue with IV fluids patient continues have hyponatremia 01/01 Patient was given bowel prep overnight, he has poor oral intake we will cont with IVF and monitor electrolytes. 01/02 IVF ordered per renal. (5) HTN (hypertension) Current Visit: No Status: Chronic Assessment and Plan: Pressure stable at this time we will continue with home medications and monitor (6) CAD (coronary artery disease) Current Visit: Yes Status: Chronic Assessment and Plan: Continue with aspirin and beta jama (7) Anemia Current Visit: Yes Status: Acute Assessment and Plan: appears baseline Hgb around 11-12, Hgb 8.5 today - hemoccult stool positive - GI was consulted EGD completed and does show - Gastritis was prepped for colonoscopy however this has been cancelled dt to hyponatremia DVT Prophylaxis: SCDs. - Time Spent with Patient Total time spent is greater than 50% in coordination of care (as documented) at patient's floor/unit and/or counseling patient: Greater than 35 minutes Plan of Care Discussed with: patient Internal Medicine: Result - Labs CBC & Chem 7: 01/01/19 08:07 01/02/19 07:52 Labs: BMP 01/01/19 01/01/19 01/02/19 13:14 19:28 01:30 Sodium 124 L 126 L 128 L Potassium 3.3 L Chloride 93 L Carbon Dioxide 25 BUN 3 L Creatinine 0.57 L Glucose 133 H Calcium 8.2 L 01/02/19 07:52 Sodium 124 L Potassium Chloride Carbon Dioxide BUN Creatinine Glucose Calcium - ABG Interpretation ABG results: PT/INR, D-dimer PT 11.8 Seconds (9.4-12.1) 12/28/18 19:38 Consult Discharge Plan - Plan Referrals: Kolton Stanton Jr, MD [Non-Partnered Physician] - (2) UTI (urinary tract infection) Qualifiers: Urinary tract infection type: urethritis Qualified Code(s): N34.2 - Other urethritis (5) HTN (hypertension) Qualifiers: Hypertension type: essential hypertension Qualified Code(s): I10 - Essential (primary) hypertension (6) CAD (coronary artery disease) Qualifiers: Coronary Disease-Associated Artery/Lesion type: [place] artery [place] vs. transplanted heart: [place] heart Associated angina: without angina Qualified Code(s): I25.10 - Atherosclerotic heart disease of [place] coronary artery without angina pectoris (7) Anemia Qualifiers: Anemia type: iron deficiency Iron deficiency anemia type: unspecified iron deficiency Qualified Code(s): D50.9 - Iron deficiency anemia, unspecified
[2019-01-02 12:15] LABS: Sodium, Urine 105.5 mEq/L
[2019-01-02] MEDS: Insulin LISPRO 300 UNITS/3 ML VIAL SQ SCH ×3 (13:00→20:12)
[2019-01-02] MEDS: traZODone 50 MG TABLET PO SCH (20:23)
[2019-01-02] MEDS: Netarsudil Mesylate [Rhopressa] OP SCH (20:25)
[2019-01-02] MEDS: Latanoprost 2.5 ML BOTTLE BOTH EYES SCH (20:25)
[2019-01-02 21:28] LABS: BUN/Creatinine Ratio 15 (6-26); Blood Urea Nitrogen 12 mg/dL (8-23); Calcium 7.7 mg/dL (8.6-10.3); Carbon Dioxide 24 mEq/L (23-29); Chloride 99 mEq/L (98-107); Glucose 119 mg/dL (70-105); Osmolality,Calculated 265 (280-300); Potassium 3.7 mEq/L (3.5-5.1); Sodium 127 mEq/L (136-145); eGFR For African Americans > 60 (> 60); eGFR For Non-African Americans > 60 (> 60)
[2019-01-03] MEDS ORDERED: 0.9 % Sodium Chloride 500 ML IVC SCH (03:15)
[2019-01-03] MEDS: amLODIPine 5 MG TABLET PO SCH (06:10)
[2019-01-03] MEDS: Aspirin Enteric Coated 81 MG Tablet PO SCH (06:10)
[2019-01-03] MEDS: Gabapentin 100 MG CAPSULE PO SCH (06:10)
[2019-01-03] MEDS: Pantoprazole 40 MG VIAL IVP SCH (06:11)
[2019-01-03] MEDS: TOBRAMYCIN OP SCH ×2 (06:23→20:03)
[2019-01-03] MEDS: LOTEPRED ETAB OP SCH ×2 (06:23→20:03)
[2019-01-03] MEDS: Insulin LISPRO 300 UNITS/3 ML VIAL SQ SCH ×4 (08:26→20:03)
[2019-01-03 08:48] LABS: Hematocrit 27.6 % (37.5-50.1); Hemoglobin 9.2 g/dL (12.9-16.9); Mean Corpuscular HGB Conc 33.3 g/dL (31.6-35.5); Mean Corpuscular Hemoglobin 30.2 pg (28.0-33.3); Mean Corpuscular Volume 90.5 fL (83.0-100.0); Mean Platelet Volume 8.7 fL (9.4-12.4); Platelet Count 166 K/mcL (140-400); Red Blood Count 3.05 M/mcL (4.19-5.50); Red Cell Distribution Width 14.6 % (11.5-14.5); White Blood Count 5.5 K/mcL (4.3-11.1)
[2019-01-03 08:59] LABS: BUN/Creatinine Ratio 13 (6-26); Blood Urea Nitrogen 9 mg/dL (8-23); Calcium 8.3 mg/dL (8.6-10.3); Carbon Dioxide 26 mEq/L (23-29); Chloride 100 mEq/L (98-107); Glucose 113 mg/dL (70-105); Osmolality,Calculated 271 (280-300); Potassium 3.6 mEq/L (3.5-5.1); Sodium 131 mEq/L (136-145); eGFR For African Americans > 60 (> 60); eGFR For Non-African Americans > 60 (> 60)
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
--- NOTE | 2019-01-03 14:49 | Nephrology Progress Note ---
Date of Encounter: 01/03/19 Time of Encounter: 13:00 - Assessment and Plan (1) Hyponatremia Current Visit: No Status: Acute Asymptomatic hyponatremia: Likely multifactorial in etiology. Continue to follow a fluid restriction and sodium chloride tablets. He does not have indications for 3% saline at this time. I recommend a slow/safe rate of correction of approx 6-8mEq / 24hr. I colleague Dr. Castrejon will be on-call starting tomorrow, and I will provide a thorough handoff. Thank you. Subjective Principal diagnosis: Hyponatremia Interval history: The patient was seen and examined earlier today, and he did not affirm having nausea, vomiting, or diarrhea. He voiced feeling about the same. Objective - Vital Signs Vital signs: Vital Signs Temp Pulse Resp BP Pulse Ox 01/03/19 11:32 98.0 F 66 19 161/78 99 01/03/19 07:30 97.5 F L 77 19 124/84 96 01/03/19 03:13 97.5 F L 76 17 162/77 96 01/02/19 22:22 97.9 F 77 16 147/64 97 01/02/19 18:50 98.0 F 81 16 143/55 97 01/02/19 15:42 97.5 F L 75 17 114/54 97 Intake and Output 01/02/19 01/03/19 01/03/19 23:59 07:59 15:59 Intake Total 720 / 2440 2100 / 2600 500 / 2600 Balance 720 / 2370 2100 / 2600 500 / 2600 Intake: IV Fluids 2000 / 2500 500 / 2500 0.9 % Sodium Chloride 1,000 ML 2000 / 2000 @ 125 mls/hr IVC .Q8H [facility] Rx#: [id number] 0.9 % Sodium Chloride 500 ML @ 500 / 500 75 mls/hr IVC .[id number] [facility] Rx#: [id number] Oral 720 / 1440 100 / 100 Other: Meal Dinner Percent of Meal Consumed 90% Stool Size Small Stool Consistency loose Stool Color Brown Yellow # Urine Diapers 0 1 1 # Bowel Movements 1 0 # Bowel Movement Diapers 0 Weight 63 kg Blood Glucose* 147 113 126 Patient Weight 01/03/19 23:59 Weight 63 kg - General Appearance General appearance: Present: well-developed, well-nourished, appears started age EENT: Present: ATNC, mucous membranes moist Additional Comments: pupillary cloudiness noted, R > L Neck: Present: no JVD, supple Respiratory: Present: no kyphosis, clear Cardiology: Present: no edema, regular rate, regular rhythm Gastrointestinal: Present: normoactive bowel sounds, no tenderness Integumentary: Present: warm and dry, ecchymotic Neurologic: Present: no focal deficit, no asterixis Musculoskeletal: Present: no erythema, no clubbing Psychiatric: Present: mood/affect appropriate, cooperative - Lab 01/04/19 01:01 01/04/19 01:01 Most recent lab results 01/03/19 07:39 Calcium 8.3 L Consult Discharge Plan - Plan Referrals: Kolton Stanton Jr, MD [Non-Partnered Physician] -
[2019-01-03] MEDS ORDERED: SODIUM CHLORIDE/NAHCO3/KCL/PEG 4,000 ML SOLN.RECON PO ONE (17:00)
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
[2019-01-03] MEDS: Netarsudil Mesylate [Rhopressa] OP SCH (20:03)
[2019-01-03] MEDS: traZODone 50 MG TABLET PO SCH (20:08)
[2019-01-03] MEDS: Latanoprost 2.5 ML BOTTLE BOTH EYES SCH (20:15)
[2019-01-04 01:58] LABS: Hematocrit 28.6 % (37.5-50.1); Hemoglobin 9.5 g/dL (12.9-16.9); Mean Corpuscular HGB Conc 33.2 g/dL (31.6-35.5); Mean Corpuscular Hemoglobin 29.4 pg (28.0-33.3); Mean Corpuscular Volume 88.5 fL (83.0-100.0); Mean Platelet Volume 8.8 fL (9.4-12.4); Platelet Count 169 K/mcL (140-400); Red Blood Count 3.23 M/mcL (4.19-5.50); Red Cell Distribution Width 14.5 % (11.5-14.5); White Blood Count 7.5 K/mcL (4.3-11.1)
[2019-01-04 02:32] LABS: BUN/Creatinine Ratio 10 (6-26); Blood Urea Nitrogen 6 mg/dL (8-23); Calcium 8.3 mg/dL (8.6-10.3); Carbon Dioxide 25 mEq/L (23-29); Chloride 96 mEq/L (98-107); Glucose 106 mg/dL (70-105); Osmolality,Calculated 264 (280-300); Potassium 3.2 mEq/L (3.5-5.1); Sodium 128 mEq/L (136-145); eGFR For African Americans > 60 (> 60); eGFR For Non-African Americans > 60 (> 60)
[2019-01-04] MEDS: Insulin LISPRO 300 UNITS/3 ML VIAL SQ SCH ×4 (09:56→20:11)
[2019-01-04] MEDS: Gabapentin 100 MG CAPSULE PO SCH (10:04)
[2019-01-04] MEDS: amLODIPine 5 MG TABLET PO SCH (10:04)
[2019-01-04] MEDS: Aspirin Enteric Coated 81 MG Tablet PO SCH (10:04)
[2019-01-04] MEDS: LOTEPRED ETAB OP SCH ×2 (10:04→20:05)
[2019-01-04] MEDS: TOBRAMYCIN OP SCH ×2 (10:04→20:05)
--- NOTE | 2019-01-04 10:48 | Internal Med Progress Note ---
Hospitalist Progress Note - Encounter Date of Encounter: 01/04/19 Time of Encounter: 10:46 - Subjective Interval History: Patient seen and examined in the room. He has no complaint at this time. Reported no rectal bleeding, N/V, or diarrhea. - Exam Vitals: Temp Pulse Resp BP Pulse Ox 98.5 F 73 16 184/69 98 01/04/19 07:01 01/04/19 07:01 01/04/19 07:01 01/04/19 07:01 01/04/19 07:01 Exam: General: Well-developed man lying in bed in NAD Skin: Warm, pale and dry. HEENT: Dry mucous membranes. (+) conjunctivae pallor. Neck: No lymphadenopathy. No JVD. No carotid bruits. No palpable thyroid. Chest: Normal thoracic expansion. Normal breath sounds. Clear to auscultation. Heart: Normal S1 & S2; rhythmic. No rubs or murmurs. Abdomen: Non-distended, soft and non-tender to palpation. No peritoneal reaction. Extremities: Left AKA with well-healing stump. Right leg without edema, cyanosis. Neurological: Somnolent but easily arousable, oriented to person, place. No focal deficits. Psych: Affect appropriate. - Assessment and Plan (1) Hyponatremia Current Visit: No Status: Acute Assessment and Plan: Sodium was 129 on presentation 1:30 this morning we will continue with IV fluids and monitor closely 12/30 Received IVF - cont to have Na 129 we will check urine-serum osmo - fluid restrictions - resume lasix 12/31 Continue with IV fluids 01/01 Patient received colonoscopy prep last night and sodium was 122 he was given IV fluids slowly commodes 124 we will cancel colonoscopy for now continue with IV fluid and monitor sodium closely. Currently does not have any seizure activity he is a little confused and sure if this is his baseline he does have history dementia. 01/02 renal following, appreciate help. 01/03 Na 131 today, renal following, appreciate help. 01/06 Na 128, stable, no seizure or other related complications, renal following. (2) UTI (urinary tract infection) Current Visit: Yes Status: Acute Assessment and Plan: Recieved 3 days of IV rocephin - urine culture Citrobacter amalonatiicus- sensitive to rocephn. currently off IV abx, no urinary symptoms. (3) Acute encephalopathy Current Visit: Yes Status: Resolved Assessment and Plan: 1 patient does have a history of dementia according to family-suspect this may be related to urinary tract infection as well as dehydration he also have some anemia stool occult is positive we will monitor closely 12/30 He is more alert and appropiate today. - Suspect encephalopathy maybe secondary to infection- we will cont with ATB 12/31 Patient is more alert and appropriate today-suspect this is multifactorial with infection as well as hyponatremia continue IV fluids and antibiotics for now 01/01 Suspect multifatoral -Hyponatremia - cont with IV fluids - UTI cont with ATB- dehydration. 01/02 at baseline with dementia, continue monitoring. 01/03 at baseline. (4) Dehydration Current Visit: Yes Status: Acute Assessment and Plan: Continue with IV fluids monitor hyponatremia and electrolytes 12/30 Appears to be improving - he does have hyponatremia - we will stop IVF and monitor electrolytes closely 12/31 Continue with IV fluids patient continues have hyponatremia 01/01 Patient was given bowel prep overnight, he has poor oral intake we will cont with IVF and monitor electrolytes. 01/02 IVF ordered per renal. 01/03 improved Na level, renal following. 01/04 improving, renal following. (5) HTN (hypertension) Current Visit: No Status: Chronic Assessment and Plan: Pressure stable at this time we will continue with home medications and monitor (6) CAD (coronary artery disease) Current Visit: No Status: Chronic Assessment and Plan: Continue with aspirin and beta jama (7) Anemia Current Visit: Yes Status: Acute Assessment and Plan: Hgb stable at 9.5 currently. Colonoscopy in the morning per GI. DVT Prophylaxis: SCDs. - Time Spent with Patient Total time spent is greater than 50% in coordination of care (as documented) at patient's floor/unit and/or counseling patient: Greater than 35 minutes Plan of Care Discussed with: patient Internal Medicine: Result - Labs CBC & Chem 7: 01/04/19 01:01 01/04/19 01:01 Labs: Short CBC 01/04/19 Range/Units 01:01 WBC 7.5 (4.3-11.1) K/mcL Hgb 9.5 L (12.9-16.9) g/dL Hct 28.6 L (37.5-50.1) % Plt Count 169 (140-400) K/mcL BMP 01/04/19 01:01 Sodium 128 L Potassium 3.2 L Chloride 96 L Carbon Dioxide 25 BUN 6 L Creatinine 0.62 L Glucose 106 H Calcium 8.3 L - ABG Interpretation ABG results: PT/INR, D-dimer PT 11.8 Seconds (9.4-12.1) 12/28/18 19:38 Consult Discharge Plan - Plan Referrals: Kotlon Stanton Jr, MD [Non-Partnered Physician] - (2) UTI (urinary tract infection) Qualifiers: Urinary tract infection type: urethritis Qualified Code(s): N34.2 - Other urethritis (5) HTN (hypertension) Qualifiers: Hypertension type: essential hypertension Qualified Code(s): I10 - Essential (primary) hypertension (6) CAD (coronary artery disease) Qualifiers: Coronary Disease-Associated Artery/Lesion type: [place] artery [place] vs. transplanted heart: [place] heart Associated angina: without angina Qualified Code(s): I25.10 - Atherosclerotic heart disease of [place] coronary artery withou t angina pectoris (7) Anemia Qualifiers: Anemia type: iron deficiency Iron deficiency anemia type: unspecified iron deficiency Qualified Code(s): D50.9 - Iron deficiency anemia, unspecified
[2019-01-04] MEDS ORDERED: Lidocaine -MPF 2% 2 ML VIAL ONE (11:10)
[2019-01-04] MEDS ORDERED: *HR* Propofol 200 MG/20 ML VIAL IVP ONE (11:10)
--- NOTE | 2019-01-04 15:55 | Nephrology Progress Note ---
Date of Encounter: 01/04/19 Time of Encounter: 13:00 - Assessment and Plan (1) Hyponatremia Current Visit: No Status: Acute Hyponatremia likely due to dehydration from UTI Currently at 128 This is trending towards his baseline of low 130's Continue to monitor patient's sodium levels as well as renal function at this time Continue salt tabs (2) Acute encephalopathy Current Visit: Yes Status: Resolved Was likely from UTI and hyponatremia Resolved now, back to baseline (3) Anemia Current Visit: Yes Status: Acute As per primary Qualifiers: Anemia type: iron deficiency Iron deficiency anemia type: unspecified iron deficiency Qualified Code(s): D50.9 - Iron deficiency anemia, unspecified Subjective Principal diagnosis: Hyponatremia Interval history: Ms. Delacruz was seen and examined at bedside today. He states he is feeling good and denies any chest pain, shortness of breath, abdominal pain. His labs today show WBC count of 7.5, Hgb 9.5, Hct 18.6, Plt 169, Na 128, K 3.2, Cl 96, BUN 6, Cr 0.62 Vitals stabel today with bp 184/69, afebrile Total volume urine not recorded as patient is in depends for urine incontinence Patient is now on a regular diet with salt tabs added, Sodium has trended back close to his baseline. Objective - Vital Signs Vital signs: Vital Signs Temp Pulse Resp BP Pulse Ox 01/04/19 13:20 69 18 150/37 99 01/04/19 13:05 65 18 148/61 99 01/04/19 12:50 67 14 147/65 99 01/04/19 12:06 98.5 F 71 18 158/60 99 01/04/19 07:01 98.5 F 73 16 184/69 98 01/04/19 02:56 98.2 F 89 15 186/69 97 01/03/19 23:38 98.9 F 87 15 155/80 98 01/03/19 18:49 97.8 F 89 14 177/63 98 Intake and Output 01/03/19 01/04/19 01/04/19 23:59 07:59 15:59 Intake Total 960 / 4280 Output Total 200 / 200 Balance 960 / 4280 -200 / -200 Intake: Oral 960 / 1780 Output: Urine 200 / 200 Other: Meal Dinner Percent of Meal Consumed 100% Stool Size Moderate Copious Stool Consistency loose liquid liquid Stool Characteristics Pasty Stool Color Yellow Yellow # Urine Diapers 2 1 1 # Bowel Movement Diapers 1 1 Weight 63.2 kg Blood Glucose* 152 108 Patient Weight 01/04/19 23:59 Weight 63.2 kg - General Appearance General appearance: Present: well-developed, well-nourished EENT: Present: mucous membranes dry Neck: Present: no JVD, supple Respiratory: Present: clear Cardiology: Present: no murmurs, no rub, no gallops, no edema Gastrointestinal: Present: normoactive bowel sounds, no tenderness, no guarding Integumentary: Present: no rash, warm and dry - Lab 01/04/19 01:01 01/04/19 01:01 Consult Discharge Plan - Plan Referrals: Kolton Stanton Jr, MD [Non-Partnered Physician] -
[2019-01-04] MEDS: Netarsudil Mesylate [Rhopressa] OP SCH (20:05)
[2019-01-04] MEDS: traZODone 50 MG TABLET PO SCH (20:10)
[2019-01-04] MEDS: Latanoprost 2.5 ML BOTTLE BOTH EYES SCH (20:10)
[2019-01-05 02:29] LABS: Hematocrit 26.5 % (37.5-50.1); Hemoglobin 8.8 g/dL (12.9-16.9); Mean Corpuscular HGB Conc 33.2 g/dL (31.6-35.5); Mean Corpuscular Hemoglobin 29.5 pg (28.0-33.3); Mean Corpuscular Volume 88.9 fL (83.0-100.0); Mean Platelet Volume 8.9 fL (9.4-12.4); Platelet Count 171 K/mcL (140-400); Red Blood Count 2.98 M/mcL (4.19-5.50); Red Cell Distribution Width 14.8 % (11.5-14.5); White Blood Count 6.4 K/mcL (4.3-11.1)
[2019-01-05 02:48] LABS: BUN/Creatinine Ratio 12 (6-26); Blood Urea Nitrogen 9 mg/dL (8-23); Calcium 8.4 mg/dL (8.6-10.3); Carbon Dioxide 27 mEq/L (23-29); Chloride 103 mEq/L (98-107); Glucose 109 mg/dL (70-105); Osmolality,Calculated 263 (280-300); Potassium 3.7 mEq/L (3.5-5.1); Sodium 127 mEq/L (136-145); eGFR For African Americans > 60 (> 60); eGFR For Non-African Americans > 60 (> 60)
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
[2019-01-05] MEDS: Aspirin Enteric Coated 81 MG Tablet PO SCH (09:29)
[2019-01-05] MEDS: amLODIPine 5 MG TABLET PO SCH (09:30)
[2019-01-05] MEDS: TOBRAMYCIN OP SCH ×2 (09:31→20:17)
[2019-01-05] MEDS: Gabapentin 100 MG CAPSULE PO SCH (09:31)
[2019-01-05] MEDS: LOTEPRED ETAB OP SCH ×2 (09:31→20:17)
[2019-01-05] MEDS: Insulin LISPRO 300 UNITS/3 ML VIAL SQ SCH ×4 (09:41→20:16)
[2019-01-05] MEDS: Netarsudil Mesylate [Rhopressa] OP SCH (20:17)
[2019-01-05] MEDS: traZODone 50 MG TABLET PO SCH (20:22)
[2019-01-05] MEDS: Latanoprost 2.5 ML BOTTLE BOTH EYES SCH (20:25)
[2019-01-06 07:04] VITALS: BP 174/88
[2019-01-06] MEDS: amLODIPine 5 MG TABLET PO SCH (08:22)
[2019-01-06] MEDS: Gabapentin 100 MG CAPSULE PO SCH (08:22)
[2019-01-06] MEDS: Aspirin Enteric Coated 81 MG Tablet PO SCH (08:22)
[2019-01-06] MEDS: LOTEPRED ETAB OP SCH (08:23)
[2019-01-06] MEDS: TOBRAMYCIN OP SCH (08:23)
[2019-01-06] MEDS: Insulin LISPRO 300 UNITS/3 ML VIAL SQ SCH (08:34)
--- NOTE | 2019-01-06 08:57 | Physician Discharge Referral ---
ExtendedCare Referral Info Provider in Charge after Transfer: Other Institutional Level of Care: Skilled - Diagnosis (1) Hyponatremia Priority: Primary Status: Acute (2) UTI (urinary tract infection) Priority: Primary Status: Acute (3) Acute encephalopathy Priority: Primary Status: Resolved (4) Dehydration Priority: Primary Status: Acute (5) HTN (hypertension) Priority: Secondary Status: Chronic (6) CAD (coronary artery disease) Priority: Secondary Status: Chronic (7) Anemia Priority: Primary Status: Acute Prognosis: Fair Aware of Diagnosis: Family Aware of Prognosis: Family - Transfer Medications Home Medications: Aspirin [Lo-Dose Aspirin EC] 81 mg PO QAM 03/31/18 [History] Atenolol 100 mg PO QAM 03/31/18 [History] Calcium Carbonate/Vitamin D3 [Calcium 600 + Vit D Tablet] 1 tab PO QAM 03/31/18 [History] Tamsulosin [Flomax] 0.4 mg PO QAM 09/15/18 [History] Latanoprost [Xalatan] 1 drop BOTH EYES HS 12/30/18 [History] Tobramycin/Lotepred Etab [Zylet Eye Drops] 1 drop RIGHT EYE BID 12/30/18 [History] metFORMIN [Glucophage] 500 mg PO QAM 12/30/18 [History] Amlodipine Besylate 2.5 mg PO QAM 12/31/18 [History] Enoxaparin [Lovenox] 40 mg SQ QAM 12/31/18 [History] Furosemide [Lasix] 20 mg PO QAM 12/31/18 [History] Gabapentin [Neurontin] 100 mg PO QAM 12/31/18 [History] Netarsudil Mesylate [Rhopressa] 1 drop BOTH EYES HS 12/31/18 [History] Pantoprazole Sodium [Protonix] 40 mg PO QAM 12/31/18 [History] Tramadol HCl [Ultram] 50 mg PO Q6H PRN 12/31/18 [History] Trazodone HCl 25 mg PO HS 12/31/18 [History] Allergies/Adverse Reactions: Allergy/AdvReac Type Severity Reaction Status Date / Time Penicillins Allergy Mild Hives Verified 12/30/18 15:28 - Respiratory Orders Smoking Cessation: Smoking cessation has been advised. For more information, call the [employer] Tobacco Quit Line at 3-622-BZUV-NOW. - Advance Directives Code Status: DNR-Arrest CERTIFICATION: I certify that the transfer of the above named patient to an Extended Care Facility is necessary for the continuing treatment of the diagnosis listed. The above information is true and accurate reflection of patient's current condition. Confidential - Redisclosure prohibited without a patient's written consent.
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
--- NOTE | 2019-01-06 10:39 | Nephrology Progress Note ---
Date of Encounter: 01/05/19 Time of Encounter: 17:00 - Assessment and Plan (1) Hyponatremia Current Visit: No Status: Acute Sodium noted at 127, peaked at 131 this hospital stay with baseline in the 130s Continue fluid restriction Continue salt tabs (2) Acute encephalopathy Current Visit: Yes Status: Resolved resolved (3) Anemia Current Visit: Yes Status: Acute Hgb noted at 9.5 fairly stable, will monitor Qualifiers: Anemia type: iron deficiency Iron deficiency anemia type: unspecified iron deficiency Qualified Code(s): D50.9 - Iron deficiency anemia, unspecified Subjective Principal diagnosis: Hyponatremia Interval history: Pt seen and examined with no complaints, resting comfortably Objective - Vital Signs Vital signs: Vital Signs Temp Pulse Resp BP Pulse Ox 01/06/19 07:03 98.3 F 71 15 174/88 97 01/06/19 02:18 98.2 F 77 15 167/68 97 01/05/19 22:39 98.5 F 65 14 153/71 97 01/05/19 18:42 97.9 F 75 14 151/66 98 01/05/19 15:42 97.7 F 70 18 181/75 98 01/05/19 11:05 97.9 F 70 16 154/70 97 Intake and Output 01/05/19 01/06/19 01/06/19 23:59 07:59 15:59 Output Total 0 / 0 Balance 0 / 0 Output: Urine 0 / 0 Other: # Urine Diapers 1 1 Weight 60.6 kg Blood Glucose* 134 134 Patient Weight 01/06/19 23:59 Weight 60.6 kg - General Appearance General appearance: Present: well-developed EENT: Present: ATNC, mucous membranes dry Neck: Present: no JVD, supple Respiratory: Present: clear Cardiology: Present: no edema (L AKA), normal S1, normal S2 Gastrointestinal: Present: no tenderness, no guarding Integumentary: Present: warm and dry Neurologic: Present: no focal deficit Musculoskeletal: Present: no deformities Psychiatric: Present: mood/affect appropriate - Lab 01/05/19 01:33 01/05/19 01:33 Consult Discharge Plan - Plan Instructions: Urinary Tract Infection in Men (DC) Additional Instructions: Follow-up appointments: If there is not an appointment listed below, please call your physician and schedule a follow-up appointment. If you have congestive heart failure and your symptoms return, make an appointment with your physician. Medication List: Carry an up to date list of medications you are taking at all time. We have given you an updated medication list including any new medications that you have been prescribed. Please provide that list to your primary provider Symptoms: If your condition changes or you experience any of the following symptoms, notify your physician immediately: Unusual or worsening pain, fever, persistent nausea and vomiting, bleeding, increase in swelling (especially in your legs), sudden weight gain, extreme dizziness, chest pain, increased drainage or redness from a wound or incision. Go to the emergency department if you experience a problem with breathing. Weights: If you have a history of swelling or shortness of breath, weigh yourself daily and notify your physician if you have a weight gain of two or more pounds in one day or 5 or more pounds in a week. If you experience any of the warning signs for stroke: Sudden numbness or weakness of the face, arm or leg; especially on one side of the body, sudden confusion, trouble speaking or understanding, sudden trouble seeing in one or both eyes, sudden trouble walking, dizziness, loss of balance or coordination, sudden sever headache with no cause; Call 911 or go to the emergency room. Stroke is a medical emergency. Some risk factors for stroke: Age, cigarette smoking, diabetes, excessive alcohol consumption, family history, high blood pressure, overweight, physical inactivity, prior stroke, heart attack, diagnosis of carotid artery stenosis or other artery disease. If you smoke, STOP: Smoking or tobacco use significantly increases your risk of heart and lung disease. Your chance of disease greatly increases if you continue to smoke. For more information, call the [place] tobacco quit line for smoking cessation 1-842-ZTKL-NOW ( ) Referrals: Kolton Stanton Jr, MD [Non-Partnered Physician] - (Please call Monday to schedule hospital follow up appointment for 7-10 days from date of discharge. ) Prescriptions: Ferrous Sulfate 650 mg PO DAILY@0800 #30 tablet Gabapentin [Neurontin] 100 mg PO QAM 3 Days #3 capsule Sodium Chloride [Sodium Chloride Tab] 1 gm PO TID #30 tablet Tramadol HCl [Ultram] 50 mg PO Q6H PRN 2 Days #8 tablet PRN Reason: Pain
== END 2019-01-06 11:45 | DRG 689 ==
LOC: 3BNU 19:02 → EMEROOARM 19:02 → 3BNU 12-29 00:41
PROVIDERS: ADMIT Internal Medicine Nephrology; ATTEND Internal Medicine Nephrology
PROC: ENDOEBX (2018-12-31 13:00)

== ENCOUNTER 2019-01-09 22:17 | Observation (INO) ==
[2019-01-09] MEDS ORDERED: 0.9 % Sodium Chloride 1,000 ML IVC ONE (22:25)
[2019-01-09 22:56] LABS: Basophils % 0.3 %; Eosinophils % 0.3 %; Hematocrit 32.5 % (37.5-50.1); Hemoglobin 10.6 g/dL (12.9-16.9); Immature Granulocytes % 0.7 % (0-4); Lymphocytes # 0.6 K/mcL (0.6-4.6); Lymphocytes % 5.2 %; Mean Corpuscular HGB Conc 32.6 g/dL (31.6-35.5); Mean Corpuscular Hemoglobin 29.8 pg (28.0-33.3); Mean Corpuscular Volume 91.3 fL (83.0-100.0); Mean Platelet Volume 8.6 fL (9.4-12.4); Monocytes # 0.6 K/mcL (0.0-1.3); Neutrophils # 10.9 K/mcL (1.6-8.9); Platelet Count 166 K/mcL (140-400); Red Blood Count 3.56 M/mcL (4.19-5.50); Segmented Neutrophils % 88.5 %
[2019-01-09 22:59] LABS: White Blood Count 12.3 K/mcL (4.3-11.1)
[2019-01-09 23:06] LABS: Prothrombin Time 11.1 Seconds (9.4-12.1)
[2019-01-09 23:18] LABS: Alanine Aminotransferase 6 Units/L (7-52); Albumin 3.4 g/dL (3.5-5.7); Albumin/Globulin Ratio 1.5 (1.1-2.2); Alkaline Phosphatase 96 Units/L (34-104); Aspartate Amino Transferase 10 Units/L (13-39); BUN/Creatinine Ratio 16 (6-26); Bilirubin,Direct 0.1 mg/dL (0.0-0.2); Bilirubin,Indirect 0.5 mg/dL (0.0-1.2); Bilirubin,Total 0.6 mg/dL (0.3-1.0); Blood Urea Nitrogen 23 mg/dL (8-23); Calcium 8.9 mg/dL (8.6-10.3); Carbon Dioxide 26 mEq/L (23-29); Chloride 94 mEq/L (98-107); Globulin 2.2 g/dL (2.4-3.5); Glucose 199 mg/dL (70-105); Magnesium 1.8 mg/dL (1.6-2.6); Osmolality,Calculated 277 (280-300); Phosphorous 4.2 mg/dL (2.7-4.5); Sodium 129 mEq/L (136-145); Total Protein 5.6 g/dL (6.4-8.9); Troponin I < 0.03 ng/mL (< 0.04); eGFR For African Americans 58 (> 60); eGFR For Non-African Americans 48 (> 60)
[2019-01-09 23:21] LABS: Bilirubin,Urine Negative (Negative); Blood,Urine Negative (Negative); Clarity,Urine Clear (Clear); Color,Urine Yellow (Yellow); Glucose,Urine (UA) Normal (Normal); Ketones,Urine Negative (Negative); Leukocyte Esterase,Urine Negative (Negative); Nitrite,Urine Negative (Negative); PH,Urine 5.5 pH Units (5.0-8.0); Protein,Urine Negative (Neg-Trace); Specific Gravity,Urine 1.016 (1.010-1.025); Urobilinogen,Urine Normal (Normal)
[2019-01-10] MEDS ORDERED: cefTRIAXone 1,000 MG in 0.9 % Sodium Chloride Mini Bag 100 ML IVPB ONE (00:33)
[2019-01-10] MEDS ORDERED: 0.9 % Sodium Chloride 1,000 ML ONE (00:35)
[2019-01-10] MEDS ORDERED: 0.9 % Sodium Chloride 1,000 ML IV ONE (00:36)
[2019-01-10] MEDS ORDERED: Acetaminophen 325 MG TABLET PO PRN (03:25)
[2019-01-10 04:15] LABS: Basophils % 0.4 %; Eosinophils # 0.1 K/mcL (0.0-0.6); Eosinophils % 1.1 %; Hematocrit 26.9 % (37.5-50.1); Hemoglobin 8.8 g/dL (12.9-16.9); Immature Granulocytes % 0.9 % (0-4); Lymphocytes # 1.1 K/mcL (0.6-4.6); Lymphocytes % 11.7 %; Mean Corpuscular HGB Conc 32.7 g/dL (31.6-35.5); Mean Corpuscular Hemoglobin 29.7 pg (28.0-33.3); Mean Corpuscular Volume 90.9 fL (83.0-100.0); Mean Platelet Volume 9.2 fL (9.4-12.4); Monocytes # 0.7 K/mcL (0.0-1.3); Monocytes % 7.3 %; Neutrophils # 7.1 K/mcL (1.6-8.9); Platelet Count 150 K/mcL (140-400); Red Blood Count 2.96 M/mcL (4.19-5.50); Red Cell Distribution Width 14.9 % (11.5-14.5); Segmented Neutrophils % 78.6 %
[2019-01-10 04:30] LABS: BUN/Creatinine Ratio 20 (6-26); Blood Urea Nitrogen 21 mg/dL (8-23); Calcium 8.5 mg/dL (8.6-10.3); Carbon Dioxide 26 mEq/L (23-29); Chloride 98 mEq/L (98-107); Glucose 135 mg/dL (70-105); Osmolality,Calculated 281 (280-300); Sodium 133 mEq/L (136-145); eGFR For African Americans > 60 (> 60); eGFR For Non-African Americans > 60 (> 60)
[2019-01-10] MEDS: *HR* Heparin 5,000 UNIT/ML VIAL SQ SCH ×2 (05:17→17:58)
[2019-01-10] MEDS: 0.9 % Sodium Chloride 1,000 ML IVC SCH ×2 (05:17→15:27)
[2019-01-10] MEDS ORDERED: Aspirin Enteric Coated 81 MG Tablet PO SCH (09:00)
[2019-01-10] MEDS: Gabapentin 100 MG CAPSULE PO SCH (09:34)
[2019-01-10] MEDS: amLODIPine 5 MG TABLET PO SCH (09:34)
[2019-01-10] MEDS: Latanoprost 2.5 ML BOTTLE BOTH EYES SCH (21:05)
[2019-01-10] MEDS: (Netarsudil Mesylate [Rhopressa] 1 DROP) OP SCH (21:27)
[2019-01-10] MEDS: TOBRAMYCIN OP SCH (21:28)
[2019-01-10] MEDS: LOTEPRED ETAB OP SCH (21:28)
[2019-01-10] MEDS: traZODone 50 MG TABLET PO SCH (21:28)
[2019-01-11] MEDS: *HR* Heparin 5,000 UNIT/ML VIAL SQ SCH ×2 (05:17→16:22)
[2019-01-11] MEDS: amLODIPine 5 MG TABLET PO SCH (09:21)
[2019-01-11] MEDS: Gabapentin 100 MG CAPSULE PO SCH (09:22)
[2019-01-11] MEDS: TOBRAMYCIN OP SCH ×2 (09:23→19:35)
[2019-01-11] MEDS: LOTEPRED ETAB OP SCH ×2 (09:23→19:35)
[2019-01-11 09:32] LABS: Basophils # 0.1 K/mcL (0.0-0.2); Basophils % 0.7 %; Eosinophils # 0.2 K/mcL (0.0-0.6); Eosinophils % 2.1 %; Hematocrit 30.2 % (37.5-50.1); Hemoglobin 9.8 g/dL (12.9-16.9); Immature Granulocytes % 0.7 % (0-4); Lymphocytes # 0.8 K/mcL (0.6-4.6); Mean Corpuscular HGB Conc 32.5 g/dL (31.6-35.5); Mean Corpuscular Hemoglobin 29.4 pg (28.0-33.3); Mean Corpuscular Volume 90.7 fL (83.0-100.0); Mean Platelet Volume 8.9 fL (9.4-12.4); Monocytes # 0.5 K/mcL (0.0-1.3); Monocytes % 6.8 %; Neutrophils # 5.6 K/mcL (1.6-8.9); Platelet Count 172 K/mcL (140-400); Red Blood Count 3.33 M/mcL (4.19-5.50); Red Cell Distribution Width 14.8 % (11.5-14.5); Segmented Neutrophils % 78.7 %; White Blood Count 7.1 K/mcL (4.3-11.1)
[2019-01-11 09:52] LABS: BUN/Creatinine Ratio 13 (6-26); Blood Urea Nitrogen 9 mg/dL (8-23); Calcium 8.7 mg/dL (8.6-10.3); Carbon Dioxide 29 mEq/L (23-29); Chloride 97 mEq/L (98-107); Glucose 185 mg/dL (70-105); Osmolality,Calculated 277 (280-300); Potassium 3.6 mEq/L (3.5-5.1); Sodium 132 mEq/L (136-145); eGFR For African Americans > 60 (> 60); eGFR For Non-African Americans > 60 (> 60)
[2019-01-11] MEDS: traZODone 50 MG TABLET PO SCH (19:32)
[2019-01-11] MEDS: (Netarsudil Mesylate [Rhopressa] 1 DROP) OP SCH (19:35)
[2019-01-11] MEDS: Latanoprost 2.5 ML BOTTLE BOTH EYES SCH (19:43)
[2019-01-12] MEDS ORDERED: *HR* Labetalol 20 MG/4 ML SYRINGE IVP ONE (02:22)
[2019-01-12] MEDS: *HR* Heparin 5,000 UNIT/ML VIAL SQ SCH (04:53)
[2019-01-12 05:38] LABS: Eosinophils % 3.4 %; Hematocrit 31.8 % (37.5-50.1); Hemoglobin 10.4 g/dL (12.9-16.9); Immature Granulocytes % 0.7 % (0-4); Lymphocytes % 14.7 %; Mean Corpuscular HGB Conc 32.7 g/dL (31.6-35.5); Mean Corpuscular Hemoglobin 29.5 pg (28.0-33.3); Mean Corpuscular Volume 90.1 fL (83.0-100.0); Mean Platelet Volume 8.8 fL (9.4-12.4); Monocytes % 8.9 %; Platelet Count 188 K/mcL (140-400); Red Blood Count 3.53 M/mcL (4.19-5.50); Red Cell Distribution Width 14.6 % (11.5-14.5); Segmented Neutrophils % 71.3 %; White Blood Count 6.7 K/mcL (4.3-11.1)
[2019-01-12 05:39] LABS: Basophils # 0.1 K/mcL (0.0-0.2); Eosinophils # 0.2 K/mcL (0.0-0.6); Monocytes # 0.6 K/mcL (0.0-1.3); Neutrophils # 4.8 K/mcL (1.6-8.9)
[2019-01-12 05:56] LABS: BUN/Creatinine Ratio 14 (6-26); Blood Urea Nitrogen 9 mg/dL (8-23); Calcium 8.9 mg/dL (8.6-10.3); Carbon Dioxide 29 mEq/L (23-29); Chloride 97 mEq/L (98-107); Glucose 125 mg/dL (70-105); Osmolality,Calculated 274 (280-300); Potassium 3.6 mEq/L (3.5-5.1); Sodium 132 mEq/L (136-145); eGFR For African Americans > 60 (> 60); eGFR For Non-African Americans > 60 (> 60)
[2019-01-12] MEDS: amLODIPine 5 MG TABLET PO SCH (09:01)
[2019-01-12] MEDS: Gabapentin 100 MG CAPSULE PO SCH (09:01)
[2019-01-12] MEDS: LOTEPRED ETAB OP SCH (09:02)
[2019-01-12] MEDS: TOBRAMYCIN OP SCH (09:02)
[2019-01-12 11:01] VITALS: BP 177/73
== END 2019-01-12 18:30 | DRG 65 ==
LOC: EMEROOARM 22:17 → 3BNU 22:17
PROVIDERS: ADMIT Internal Medicine; ATTEND Internal Medicine